=== PATIENT | male | born 1935 | race Caucasian/White ===

== ENCOUNTER 2019-05-28 08:00 | Outpatient (RCR) | payer MEDICARE, OTHER, SELFPAY ==
--- NOTE | 2019-04-28 13:12 | STOPEVAL ---
SPEECH THERAPY PROGRESS NOTE: Thank you for referring this patient to [facility]. Continued Speech Therapy is recommended x2 week 4 to improve vocal intensity and breath support. Please review, sign, date and return this plan of care TADEO. I agree with and certify that the following plan of care is medically necessary. Referring Physician Date Attending Provider: PHYSICIAN NOT ON STAFF Referring Provider: *ST Outpatient Evaluation Start: 04/22/19 09:04 Freq: Status: Active Protocol: Document 04/28/19 13:01 ROMERO (Rec: 04/28/19 13:12 ROMERO [email or web address]) Therapy Assessment Status Assessment Status Assessment Status Re-evaluation Outpatient Past Medical History Neurological History Hx Parkinson's Disease Yes: x 3-4 years Pain Assessment Timing of Pain Assessment Timing of Pain Assessment Assessment Self Report Self Report Pain Level 0 Pain Scale Pain Scale Used Numeric (1 - 10) Pain Score Pain Score 0: Self Report Voice Evaluation Intelligibility Intelligibility Comments overall speech intelligibility is within functional limits; however, pt speaks with a montone pitch & low vocal intensity which can interfere with being understood. Respiration Respiratory Support Comments Breath support is increased from initial evaluation when he was only able to prolong an /ah/ vowel with phonation time of 13.66 seconds. At this time, he is consistently able to prolong same vowel for > 15 seconds. Overall ave: 16.5 s. Loudness Sustained ah in dB's 88.43 Conversational Loudness (dB) 66 Loudness Average db in reading his developed functional sentences : 75.3 ST Clinical Summary Clinical Summary Clinical Summary Overall, pt is progressing in the achievement of goals. Further ST is recommended in order to achieve and facilitate consistency in functional situations. ST Services Indicated Yes Rehabilitation Potential Good Persons Assisting in Goal Achievement pt Patient/Caregiver Informed of Benefits/ Yes Risks of Rehabilitation Patient/Caregiver Participated in Plan Yes of Care Patient/Caregiver Agreed with Problem Yes List/
--- NOTE | 2019-05-04 15:21 | PCSTNOTE ---
Pt had eye surgery on this date and has been instructed to cancel tomorrow's ST tx.
--- NOTE | 2019-05-24 12:44 | PCSTNOTE ---
Patient called & cancelled scheduled appointment this date due to inclement weather.[ ]
--- NOTE | 2019-05-24 12:46 | PCSTNOTE ---
Patient called & cancelled scheduled appointment this date due to inclement weather.
--- NOTE | 2019-05-28 09:43 | STOPEVAL ---
Addendum entered by KRISTAL Harvey 06/01/19 08:07: DISCHARGE SUMMARY: Original Note: SPEECH THERAPY DISCHARGE: Thank you for referring this patient to [facility]. Please review, sign, date and return this discharge summary. I agree with and certify that the following plan of care is medically necessary. Referring Physician Date Admitting Provider: Attending Provider: PHYSICIAN NOT ON STAFF *ST Outpatient RE Evaluation : Start: 04/22/19 09:04 Freq: Status: Active Protocol: Document 05/28/19 08:06 ROMERO (Rec: 05/28/19 09:39 ROMERO [email or web address]) Therapy Assessment Status Assessment Status Assessment Status Re-evaluation Outpatient Past Medical History Neurological History Hx Parkinson's Disease Yes: x 3-4 years Pain Assessment Timing of Pain Assessment Timing of Pain Assessment Assessment Self Report Self Report Pain Level 0 Pain Scale Pain Scale Used Numeric (1 - 10) Pain Score Pain Score 0: Self Report Dysarthria Evaluation Oral-Motor Assessment Tip Diodochokinesis Accuracy Imprecise,Rhythm Regular,Rate Slow Back Diodochokinesis Accuracy Imprecise,Rhythm Regular,Rate Slow Alternating Tip/Back Diodochokinesis Accuracy Imprecise,Rhythm Regular,Rate Slow Intelligibility Polysyllabic Word Production 93 Intelligibility (%) Phrase Production Intelligibility (%) 80 Sentence Level Speech Intelligibility (% 70 ) Consistent Articulation Errors discussed & practiced comp strategies Voice Evaluation Intelligibility Conversational Level Speech (% 100 Intelligibility) Intelligibility Comments overall speech intelligibility is within functional limits; pt continues to speak with a montone pitch & low to average vocal intensity which can interfere with being understood. Respiration Vowel Prolongation (seconds) 21 Respiratory Support Comments Breath support is increased from initial evaluation when he was only able to prolong an /ah/ vowel with phonation time of 13.66 seconds. At this time, he is consistently able to prolong same vowel for > 21 seconds. Loudness Sustained ah in dB's 80 Conversational Loudness (dB) 66.56 Ability to Alter Loudness in Various No: discussed @ length the Levels of
== END 2019-07-02 14:53 | disposition home or self-care (01) ==
LOC: ANHST 08:00
DX: R49.8 Other voice and resonance disorders (principal); R47.89 Other speech disturbances
CPT/HCPCS: 92507; 92526

== ENCOUNTER 2019-11-07 13:26 | Inpatient (IN) | payer MEDICARE, OTHER, SELFPAY ==
[2019-11-07] VITALS (25 sets, daily range): BP systolic 127–165; BP diastolic 78–90; PULSE 70; RESP 12–23; TEMP 36.1–36.8; O2SAT 97–100; BMI 21.3
--- NOTE | ~2019-11-07 | CT_ITS ---
EXAMINATION: CT cervical spine wo con DATE: 11/07/2019 14:15 INDICATION: Neck pain after fall. TECHNIQUE: Computed tomography (CT) of the cervical spine was performed without intravenous contrast. The dose-length product was 116 mGy-cm. Automated exposure control and iterative reconstruction tech nique were employed. COMPARISON: None FINDINGS: There is disc narrowing at C3-4, C5-6 and C6-7 with endplate degenerative changes at these levels. There is mild multilevel uncinate and facet hypertrophy, right greater than left. There is mi ld levocurvature of the cervical spine. Odontoid process is unremarkable. No evidence for perched fac et. Lung apices are normal. There is carotid atherosclerosis. IMPRESSION: 1. No acute abnormality of the cervical spine. 2: Moderate-severe cervical spondylosis. Reviewed, dictated and finalized at location A.
--- NOTE | ~2019-11-07 | XR_ITS ---
XR chest 1V portable 11/07/2019 13:55 Indication: Dyspnea. Weakness. Procedure: AP portable chest Comparison: No prior studies for comparison. Findings: Heart size upper normal. Pacemaker leads in expected position. No focal air space disease, pulmonary edema, pleural effusion or suspected pneumothorax. Impression: 1: No acute cardiopulmonary disease. Reviewed, dictated and finalized at location A. Impression: 1: No acute cardiopulmonary disease.
--- NOTE | ~2019-11-07 | CT_ITS ---
EXAMINATION: CT brain wo con DATE: 11/07/2019 14:15 INDICATION: Status post fall. Headache. TECHNIQUE: Computed tomography (CT) of the head was performed without intravenous contrast. The dose- length product was 605.33 mGy-cm. The mA was adjusted according to patient size. Iterative reconstruc tion technique was employed. COMPARISON: None FINDINGS: No acute intracranial hemorrhage, infarction, mass or mass effect. No ventriculomegaly or m idline shift. Basilar cisterns are patent. There is intracranial atherosclerosis. There are scattered mild periventricular and subcortical white matter changes, most likely related to small vessel ische cornelius disease (microangiopathy). Paranasal sinuses and mastoids are pneumatized. No depressed skull fra ctures. IMPRESSION: 1. No acute intracranial abnormality. 2: Chronic age-related findings. Reviewed, dictated and finalized at location A.
--- NOTE | 2019-11-07 13:32 | ED.FALL ---
HPI - Fall General Chief Complaint: Fall Stated Complaint: fall Time Seen by Provider: 11/07/19 13:32 Source: patient, family and EMS Mode of arrival: EMS Limitations: dementia History of Present Illness HPI Narrative: Patient is an 84-year-old male with a history of Parkinson's dementia who presents for evaluation of ground-level fall. Patient reportedly was walking with the use of a walker when his legs became weak and he fell to the ground. No loss of consciousness. Patient spouse states he has had 4 falls today alone. She states he lives in an apartment and she has unable to care for him given the frequent falls, she is unable to lift him often when he falls. She reports he has had increasing weakness over the past week. Otherwise, patient has been at baseline mentation. No fever, nausea, vomiting. Patient reports mild neck pain, denies shoulder, chest pain, shortness of breath. Denies vision changes. Patient is currently taking Xarelto daily. No recent medication changes. Related Data Home Medications Medication Instructions Recorded Confirmed acetaminophen PO PRN PRN 11/07/19 carbidopa-levodopa 25 - 100 tablet PO TID 11/07/19 11/07/19 cholecalciferol (vitamin D3) 50 mcg PO DAILY 11/07/19 11/07/19 cyclosporine [Restasis] 11/07/19 dorzolamide 11/07/19 ferrous sulfate 325 mg PO DAILY 11/07/19 11/07/19 gabapentin 300 mg PO BID 11/07/19 11/07/19 latanoprost 11/07/19 omeprazole 40 mg PO DAILY 11/07/19 11/07/19 rivaroxaban [Xarelto] 20 mg PO DAILY 11/07/19 11/07/19 valacyclovir 1,000 mg PO BID 11/07/19 11/07/19 Allergies Allergy/AdvReac Type Severity Reaction Status Date / Time clindamycin Allergy Rash Verified 11/07/19 13:29 Review of Systems Review of Systems: Narrative: CONSTITUTIONAL: Denies fever CARDIOVASCULAR: Denies chest pain RESPIRATORY: Denies cough or dyspnea. GASTROINTESTINAL: Denies abdominal pain SKIN: Denies rash MUSCULOSKELETAL: Denies back pain NEUROLOGIC: Reports headache PMFSH Past Medical History Medical History (Updated 11/07/19 @ 14:54 by Lindsay Bynum MD) Hypertension Pacemaker Parkinsons Surgical History Surgical History (Updated 11/07/19 @ 13:42 by Lindsay Bynum MD) H/O cardiac radiofrequency ablation Total knee replacement status Social History Social History Gender identity (if verbalized by the patient): Male Exam Narrative: Exam Narrative: GENERAL: Awake, alert, conversant, slowed speech HEAD: Normocephalic, atraumatic. EYES: PERRLA and EOMI. ENT: Nares clear, no rhinorrhea or epistaxis. Mucous membranes moist. NECK: Supple. Cervical collar in place. CHEST: No respiratory distress, breathing even and non labored, no chest wall tenderness, no crepitus or ecchymoses HEART: Regular rate, sinus rhythm ABDOMEN:Non distended, non tender Pelvis: Stable to anterior lateral compression EXTREMITIES: Decreased range of motion in all extremities, increased rigidity, no edema, no deformity, no injury SKIN: Warm, dry, no rash. Abrasion to right elbow NEURO:No focal deficits. Alert and oriented x3 Course Vital Signs Vital signs: Vital Signs Temperature 36.8 C 11/07/19 13:29 Pulse Rate 70 11/07/19 13:29 Respiratory Rate 17 11/07/19 13:29 Blood Pressure 128/78 11/07/19 13:29 Pulse Oximetry 97 11/07/19 13:29 Temperature 36.8 C 11/07/19 13:29 Pulse Rate 70 11/07/19 15:16 Respiratory Rate 18 11/07/19 15:16 Blood Pressure 136/88 11/07/19 15:16 Pulse Oximetry 98 11/07/19 15:16 MDM - Fall MDM Narrative Medical decision making narrative: Patient presenting for evaluation of frequent fall, fall today. At the time of assessment, ABCs are intact and vital signs are stable. Patient is in a cervical collar. He has pain in the back of his head, denies neck or back pain. Patient is quite rigid on exam. Laboratory results are notable for hypokalemia, mild anemia. Patient will need oral as well as IV replacement, and af
--- NOTE | 2019-11-07 13:38 | ECG_ITS ---
Measurements Intervals [place] Rate: 69 P: WI: 0 QRS: -77 QRSD: 192 T: 85 QT: 487 QTc: 525 Interpretive Statements ELECTRONIC VENTRICULAR PACEMAKER BASELINE ARTIFACT- I, V2 NO FURTHER INTERPRETATION IS POSSIBLE ATYPICAL ECG Electronically Signed On 11-08-2019 13:31:28 CDT by Levi Win D.O.
[2019-11-07] MEDS: SODIUM CHLORIDE 0.9% IV 500 ML 999 ML IV CONT (14:08)
[2019-11-07 14:09] LABS: Basophils Percent Auto 0.4 % (0.2-1.2); Eosinophils Percent Auto 0.2 % (0-4.4); Hemoglobin 9.9 g/dL (14.0-18.0); Immature Granulocyte Absolute 0.03 K/mm3 (0.00-0.031); Immature Granulocyte Percent A 0.5 % (0-0.5); Lymphocytes Absolute Auto 0.52 K/mm3 (0.9-3.2); Lymphocytes Percent Auto 9.2 % (18.3-44.2); Mean Corpuscular Hemoglobin 31.7 pg (26-34); Mean Corpuscular Volume 96.2 fl (80-100); Mean Platelet Volume 8.3 fl (7.4-10.4); Monocytes Absolute Auto 0.4 K/mm3 (0.1-0.6); Monocytes Percent Auto 6.2 % (2.6-8.5); Neutrophils Absolute Auto 4.8 K/mm3 (1.3-6.7); Neutrophils Percent Auto 83.5 % (45.5-73.1); Platelet Count Result 217 k/mm3 (150-375); Red Blood Count 3.12 M/mm3 (4.6-6.20); Red Cell Distribution Width 13.8 % (11.5-14.5); White Blood Count 5.7 K/mm3 (4.5-10.0)
[2019-11-07 14:19] LABS: INR 1.4; Partial Thromboplastin Time 30.2 SECONDS (22.3-36.8); Prothrombin Time 16.5 Seconds (11.1-14.7)
[2019-11-07 14:23] LABS: Blood Urea Nitrogen 31 mg/dL (9-20); Calcium 9.1 mg/dL (8.4-10.2); Carbon Dioxide 27 mmol/L (22-30); Chloride 99 mmol/L (98-107); Estimated CRCL calculation 62 ml/min; Estimated Glomerular Filt Rate > 60; Glucose 125 mg/dL (75-110); Potassium 2.6 mmol/L (3.4-5.0); Sodium 133 mmol/L (137-145)
[2019-11-07] MEDS: POTASSIUM CHLORIDE 20 MEQ PACKET (FOR LIQUID) 40 MEQ PO (14:42)
[2019-11-07 15:42] LABS: Add Urine Microscopic? YES; Appearance Urine Clear (Clear); Bilirubin Urine Negative (Negative); Blood Urine Negative (Negative); Color Urine Yellow (Yellow); Glucose Urine UA Negative (Negative); Ketones Urine Trace mg/dL (Negative); Leukocyte Esterase Ur Negative LEU/UL (Negative); Mucus Urine Rare /lpf; Nitrate Urine Negative (Negative); Protein Urine Negative (Negative); RBC Urine 0-2 /hpf (0-2); Specific Grav Ur 1.018 (1.001-1.035); Urobilinogen Urine Negative mg/dL (<2.0); WBC Urine 0-3 /hpf
--- NOTE | 2019-11-07 18:52 | PC.NURSE ---
This patient, Winston Stanley, was admitted to 3 Med Surg Room 307-01. Patient/family oriented to hospital policies and general routines including ID bracelet, bed and alarms, visiting hours, pain management, procedures, bathroom and other care routines, personal items, smoking policy, room service/diet, and visiting hours. Valuables list has been completed. Information on how to activate the Rapid Response Team has been discussed. Patient/Family are encouraged to report perceived risks to care and to ask questions if they do not understand what they are told or what they should do.
--- NOTE | 2019-11-07 21:00 | PM.IMHP ---
H&P: HPI History of Present Illness Chief complaint: Multiple falls this week. Narrative: Winston Stanley is a very pleasant 84-year-old male with Parkinson's, atrial fibrillation status post permanent pacemaker insertion, cardiac ablation x2 on long-term anticoagulation, and chronic anemia on iron supplementation who presented to the emergency department earlier this afternoon via EMS for evaluation after multiple falls this week. The patient lives with his in independent living at [facility], and he typically ambulates with the aid of a cane. He has not had a fall in 8 months up until about 2 weeks ago when he sustained a mechanical fall. Over the past 1 week, he has had a fall every day in which she states that he just loses his balance. He has been jose that he has not sustained any significant injuries and each time he and his have been able to get him up. He does note hitting his head couple of days ago in a fall and his neck has been a bit sore since that time. Mr. Stanley reports ?extreme insomnia? and he has been taking melatonin for a couple of weeks, and is wondering if that may be causing some of the issue. Last night it sounds as though he had restless sleep, and he got up several times as he was uncomfortable. This morning he was having difficulties getting out of bed due to weakness, and sustained another mechanical fall and thus EMS was summoned. He believes he has gotten progressively more weak since the shut down due to COVID, as he has been unable to participate in his exercise program that he did at least 2 times a week. He sees a Parkinson's specialist affiliated with [place], he reports having no medication change in the last 4 to 5 months. He has not noticed a change in tremors or rigidity. Review of Systems Review of Systems: Narrative: A complete 12 systems were reviewed. He denies recent cold and flu-like symptoms. No fever, chills, or sweats. He has some mild aching in the back of his neck from the fall a couple of days ago. He denies paresthesias and focal weakness. No headache, vertigo, or diplopia. He denies chest pain, palpitations, pleuritic pain, and feelings of irregular heartbeat however he was in atrial fibrillation on EMS arrival today. The patient tells me that his pacemaker was interrogated recently showing that he was in AFib perhaps 8% of the time. He continues to be on Xarelto and has not noticed any blood in his stool. Regarding his Parkinson's, he does experience occasional dysphagia, mainly with liquids. He has also had speech changes and hypophonia. Appetite has been as per usual. He denies nausea and vomiting. He frequently has constipation takes MiraLax daily, however he has not taken that for several days due to passing liquid stools several times a day for the past 3 days. He denies dysuria and hematuria. Except as documented, all other systems were reviewed and are negative. [facility] Past Medical History Medical History (Updated 11/07/19 @ 22:58 by Deedee Romero PA-C) Chronic anemia With history of blood transfusion. Essential hypertension Gastroesophageal reflux disease Glaucoma History of MRSA infection Hypertension Parkinsons Paroxysmal atrial fibrillation On Xarelto for stroke prophylaxis. Status post permanent pacemaker insertion. History of cardiac ablation x2. Surgical History Surgical History (Updated 11/07/19 @ 22:50 by Deedee Romero PA-C) History of cardiac radiofrequency ablation History of permanent cardiac pacemaker placement History of total bilateral knee replacement Family History Family History Mother Cerebrovascular accident Social History Social History (Updated 11/07/19 @ 22:51 by Deedee Romero PA-C) Social History: Mr. Stanley lives with his in independent living at [facility]. They have 2 children. He is originally from [place], [place] and is retired
[2019-11-07 22:13] LABS: Alanine Aminotransferase 10 U/L (4-50); Albumin Level 3.4 g/dL (3.5-5.1); Alkaline Phosphatase 72 U/L (38-126); Aspartate Amino Transferase 22 U/L (17-59); Bilirubin,Total 0.2 mg/dL (0.2-1.3); Blood Urea Nitrogen 25 mg/dL (9-20); Calcium 8.3 mg/dL (8.4-10.2); Carbon Dioxide 27 mmol/L (22-30); Chloride 100 mmol/L (98-107); Estimated CRCL calculation 59 ml/min; Estimated Glomerular Filt Rate > 60; Glucose 112 mg/dL (75-110); Potassium 2.8 mmol/L (3.4-5.0); Sodium 133 mmol/L (137-145)
[2019-11-07 22:58] LABS: Iron 30 ug/dL (49-181)
[2019-11-07 23:07] LABS: Percent Iron Saturation 13 % (20-50)
[2019-11-07] MEDS: POTASSIUM CHLORIDE 20 MEQ TABLET 40 MEQ PO (23:14)
[2019-11-07 23:30] LABS: Thyroid Stimulating Hormone Reflex 0.721 uIU/mL (0.465-4.68)
[2019-11-07 23:36] LABS: Folic Acid > 20.0 ng/mL (2.76->20)
[2019-11-08] VITALS (7 sets, daily range): BP systolic 115–150; BP diastolic 67–81; PULSE 70–72; RESP 16; TEMP 36.4–37.2; O2SAT 100
[2019-11-08 06:22] LABS: Hematocrit 28.8 % (42.0-52.0); Hemoglobin 9.6 g/dL (14.0-18.0); Mean Corpuscular HGB Conc 33.3 g/dl (32-36); Mean Corpuscular Hemoglobin 31.8 pg (26-34); Mean Corpuscular Volume 95.4 fl (80-100); Platelet Count Result 228 k/mm3 (150-375); Red Blood Count 3.02 M/mm3 (4.6-6.20); Red Cell Distribution Width 13.4 % (11.5-14.5)
[2019-11-08 06:36] LABS: Blood Urea Nitrogen 21 mg/dL (9-20); Calcium 8.1 mg/dL (8.4-10.2); Carbon Dioxide 26 mmol/L (22-30); Chloride 102 mmol/L (98-107); Estimated CRCL calculation 66 ml/min; Estimated Glomerular Filt Rate > 60; Glucose 94 mg/dL (75-110); Magnesium 1.9 mg/dL (1.6-2.3); Potassium 3.4 mmol/L (3.4-5.0); Sodium 133 mmol/L (137-145)
[2019-11-08] MEDS: VALACYCLOVIR HCL 500 MG TABLET 1000 MG PO ×2 (08:03→17:45)
[2019-11-08] MEDS: FERROUS SULFATE 324 MG TABLET PO (08:04)
[2019-11-08] MEDS: CARBIDOPA/LEVODOPA 25/100 MG TABLET 2 TABLET PO ×3 (08:04→17:45)
[2019-11-08] MEDS: CHOLECALCIFEROL 1,000 UNIT TABLET 2000 UNITS PO (08:04)
[2019-11-08] MEDS: GABAPENTIN 300 MG CAPSULE PO ×2 (08:05→17:45)
[2019-11-08] MEDS: PANTOPRAZOLE 40 MG TABLET PO (08:05)
[2019-11-08] MEDS: POTASSIUM CHLORIDE 20 MEQ TABLET 40 MEQ PO (08:05)
[2019-11-08] MEDS: DORZOLAMIDE HCL 2% OPHTH DROPS 1 DROP EACH EYE ×3 (08:08→17:47)
--- NOTE | 2019-11-08 10:13 | PC.NURSE ---
Notified Dr. Martinez that patients COVID test came back negative. No new orders were obtained
--- NOTE | 2019-11-08 16:01 | PCSTNOTE ---
Please refer to the Bedside Swallow Evaluation in the EMR.
--- NOTE | 2019-11-08 17:12 | PM.IMPN ---
Progress Note: A&P Assessment and Plan (1) Frequent falls: Code(s): R29.6 - Repeated falls Status: Acute Assessment and Plan: -----likely due to his progressing Parkinson's. Would benefit from TRC therapy. He did okay with speech therapy today. Etiology of the fall appears to be mechanical with abnormal gait. He is at high risk for multiple falls in the future (2) Acute hypokalemia: Code(s): E87.6 - Hypokalemia Status: Acute Assessment and Plan: -----resolved. (3) Chronic anemia: Code(s): D64.9 - Anemia, unspecified Status: Acute Assessment and Plan: -----stable. Anemia studies show anemia chronic disease. Monitor (4) Parkinsons: Code(s): G20 - Parkinson's disease Status: Acute Assessment and Plan: -----he sees Dr. Winston Mattson at [facility]. He last saw him 5 months ago and is scheduled to see him later this month. He has typical presentation of Parkinson's but no rigidity noted on exam. His gait is abnormal and would highly benefit from TRC therapy. I will consult Neurology for any additional recommendations. He did okay with the speech therapy. (5) Paroxysmal atrial fibrillation: Code(s): I48.0 - Paroxysmal atrial fibrillation Status: Acute Assessment and Plan: -----he was reportedly in atrial fibrillation on arrival but has been in sinus rhythm. Telemetry shows a paced rhythm. Which continue to hold Xarelto due to multiple falls (6) Essential hypertension: Code(s): I10 - Essential (primary) hypertension Status: Acute Assessment and Plan: -----last blood pressure 150/80. Blood pressure medications. Will monitor trends and adjust treatment accordingly Time Spent With Patient Time with patient: 25 - 35 minutes Subjective Date/time seen: 11/08/19 17:12 Interval history: Pt is a 84 y/o male with parkinsons. Pt was seen today and is discouraged on his decline in the last few months. He said he wasn't falling as much until the last few weeks. He sees Dr. Haresh Rueda at [facility] and plan see him later this month. He has no complaints today. Pt denies nausea, vomiting, fevers, chills, constipation, diarrhea, chest pain, sob, or abdominal pain. His last bowel movement was yesterday but that was after 10 days of constipation. He said he has IBS any alternates between constipation and diarrhea. Review of Systems Review of Systems: All systems reviewed & are unremarkable except as noted in HPI and below Exam Narrative: Exam Narrative: General: Well developed well nourished patient resting in the chair in NAD HEENT: normocephalic Neck: supple Neuro: Alert and oriented x4. Slow speech and movement consistent with Parkinson's. No rigidity noted and no cogwheeling CV:RRR. Telemetry shows paced rhythm at 70 beats per minute Resp:CTA Abd: Soft, non distended. No pain to palpation. Positive bowel sounds Extremities: No swelling, erythema, or pain to palpation. Objective Data Vital Signs Vital Signs: Vital Signs - 24 hr 11/07/19 17:59 11/07/19 18:00 11/07/19 23:10 Temperature 97.0 F L 97.8 F Pulse Rate 70 70 70 Respiratory Rate 17 16 16 Blood Pressure 165/86 H 154/83 H Pulse Oximetry 99 100 100 11/08/19 06:00 11/08/19 10:10 11/08/19 12:00 Temperature 97.6 F Pulse Rate 70 72 70 Respiratory Rate 16 Blood Pressure 150/80 H Pulse Oximetry 100 11/08/19 16:14 Temperature Pulse Rate 70 Respiratory Rate Blood Pressure Pulse Oximetry Intake/Output Intake/Output: Intake & Output 11/05/19 11/06/19 11/07/19 11/08/19 23:59 23:59 23:59 23:59 Intake Total 1000 700 Output Total 550 Balance 1000 150 Meds/Results Medications: Active Medications Generic Name Dose Route Start Last Admin Trade Name Freq PRN Reason Stop Dose Admin Acetaminophen 650 mg 11/07/19 15:00 Tylenol Tablet PO Q4H PRN Mild Pain (1-3) o
[2019-11-08] MEDS: LATANOPROST 0.005% OP SOLN 2.5 ML BTL 1 DROP EACH EYE (20:36)
[2019-11-09] VITALS: PULSE 72
[2019-11-09 04:00] VITALS: PULSE 70
[2019-11-09 06:00] VITALS: BP 152/86; PULSE 70; RESP 16; TEMP 36.8; O2SAT 100
[2019-11-09 06:06] LABS: Hematocrit 29.6 % (42.0-52.0); Hemoglobin 9.9 g/dL (14.0-18.0)
[2019-11-09 06:18] LABS: Blood Urea Nitrogen 18 mg/dL (9-20); Calcium 8.1 mg/dL (8.4-10.2); Carbon Dioxide 27 mmol/L (22-30); Chloride 101 mmol/L (98-107); Estimated CRCL calculation 66 ml/min; Estimated Glomerular Filt Rate > 60; Glucose 97 mg/dL (75-110); Phosphorus 2.5 mg/dL (2.5-4.5); Potassium 3.4 mmol/L (3.4-5.0); Sodium 134 mmol/L (137-145)
[2019-11-09 08:00] VITALS: PULSE 70
[2019-11-09] MEDS: FERROUS SULFATE 324 MG TABLET PO (10:14)
[2019-11-09] MEDS: GABAPENTIN 300 MG CAPSULE PO ×2 (10:14→16:54)
[2019-11-09] MEDS: PANTOPRAZOLE 40 MG TABLET PO (10:15)
[2019-11-09] MEDS: CARBIDOPA/LEVODOPA 25/100 MG TABLET 2 TABLET PO ×3 (10:15→16:53)
[2019-11-09] MEDS: CHOLECALCIFEROL 1,000 UNIT TABLET 2000 UNITS PO (10:15)
[2019-11-09] MEDS: DORZOLAMIDE HCL 2% OPHTH DROPS 1 DROP EACH EYE ×3 (10:16→16:53)
[2019-11-09] MEDS: VALACYCLOVIR HCL 500 MG TABLET 1000 MG PO (10:17)
[2019-11-09] MEDS: POTASSIUM CHLORIDE 20 MEQ TABLET 40 MEQ PO (10:19)
--- NOTE | 2019-11-09 11:43 | PM.IMPN ---
Subjective Date/time seen: 11/09/19 11:30 Objective Data Vital Signs Vital Signs: Vital Signs - 24 hr 11/08/19 12:00 11/08/19 14:00 11/08/19 16:14 Temperature 97.7 F Pulse Rate 70 70 70 Respiratory Rate 16 Blood Pressure 115/67 Pulse Oximetry 100 11/08/19 20:00 11/08/19 22:25 11/09/19 00:00 Temperature 99.0 F Pulse Rate 70 71 72 Respiratory Rate 16 Blood Pressure 140/81 Pulse Oximetry 100 11/09/19 04:00 11/09/19 06:00 Temperature 98.2 F Pulse Rate 70 70 Respiratory Rate 16 Blood Pressure 152/86 H Pulse Oximetry 100 Intake/Output Intake/Output: Intake & Output 11/06/19 11/07/19 11/08/19 11/09/19 23:59 23:59 23:59 23:59 Intake Total 1000 1850 450 Output Total 1250 975 Balance 1000 600 -525 Meds/Results Medications: Active Medications Generic Name Dose Route Start Last Admin Trade Name Freq PRN Reason Stop Dose Admin Acetaminophen 650 mg 11/07/19 15:00 Tylenol Tablet PO Q4H PRN Mild Pain (1-3) or Fever Acetaminophen 325 mg 11/07/19 22:32 Tylenol Tablet PO PRN PRN Pain (Scale Score 4-6) Carbidopa/Levodopa 2 tablet 11/08/19 08:00 11/09/19 10:15 Sinemet 25/100 Mg PO 2 tablet TIDWM PATRIZIA Administration Cyclosporine 1 drop 11/08/19 09:00 11/09/19 10:16 Restasis EACH EYE 1 drop BID PATRIZIA Administration Dorzolamide HCl 1 drop 11/08/19 09:00 11/09/19 10:16 Trusopt EACH EYE 1 drop TID PATRIZIA Administration Ferrous Sulfate 324 mg 11/08/19 08:00 11/09/19 10:14 Ferrous Sulfate PO 324 mg DAILY@0800 PATRIZIA Administration Gabapentin 300 mg 11/08/19 09:00 11/09/19 10:14 Neurontin PO 300 mg BID PATRIZIA Administration Latanoprost 1 drop 11/08/19 21:00 11/08/19 20:36 Xalatan EACH EYE 1 drop HS PATRIZIA Administration Ondansetron HCl 4 mg 11/07/19 15:00 Zofran Inj IV PUSH Q4H PRN Nausea Pantoprazole Sodium 40 mg 11/08/19 09:00 11/09/19 10:15 Protonix PO 40 mg QAM PATRIZIA Administration Valacyclovir HCl 1,000 mg 11/08/19 09:00 11/09/19 10:17 Valtrex PO 1,000 mg BID PATRIZIA Administration Vitamin D 2,000 unit 11/08/19 09:00 11/09/19 10:15 Vitamin D PO 2,000 unit DAILY PATRIZIA Administration Radiology Results: ITS Impressions Chest X-Ray 11/07/19 13:58 Impression: 1: No acute cardiopulmonary disease. Head CT 11/07/19 14:16 IMPRESSION: 1. No acute intracranial abnormality. 2: Chronic age-related findings. Cervical Spine CT 11/07/19 14:18 IMPRESSION: 1. No acute abnormality of the cervical spine. 2: Moderate-severe cervical spondylosis. Labs Labs: Laboratory Results - last 24 hr 11/09/19 11/09/19 05:34 05:34 Hgb 9.9 L Hct 29.6 L Sodium 134 L Potassium 3.4 Chloride 101 Carbon Dioxide 27 BUN 18 Creatinine 0.80 Estim Creat Clear Calc 66 Estimated GFR > 60 Glucose 97 Calcium 8.1 L Phosphorus 2.5 Quality VTE Prophylaxis VTE prophylaxis: mechanical ordered
[2019-11-09 12:00] VITALS: PULSE 70
[2019-11-09 14:00] VITALS: BP 108/60; PULSE 69; RESP 16; TEMP 36.4; O2SAT 98
--- NOTE | 2019-11-09 14:19 | PM.DS ---
DS: Admitting Diagnosis Admitting Diagnosis Admitting Diagnosis: Repeated falls DS: Discharge Diagnosis Discharge Diagnosis (1) Frequent falls: Code(s): R29.6 - Repeated falls Status: Acute Assessment and Plan: Date of Service 11/09/19 Mr. Stanley is a pleasant 84yo M with Parkinson's disease, atrial fibrillation s/p pacemaker insertion and cardiac ablation x 2 on long-term anticoagulation, and chronic anemia who presented to the ED for evaluation of multiple falls this week. He resides with his in [facility] independent living. He noted he typically ambulates with a cane and over the last 8 months or so had not had any falls. He noted his first fall in months was 2 weeks ago and had fallen every day since then, noting he just loses his balance. No loss of consciousness. He has not noticed any changes in tremors or rigidity. He has not been able to participate in his normal exercise/gym activities due to COVID shut downs and he feels that has contributed to making him weaker lately. He follows with a Parkinson's movement disorder specialist affiliated with [facility], Dr Haresh Mattson. CT brain showed no acute intracranial abnormalities. Ultimately it is felt that his falls are a result of progressing Parkinson's. His home Xarelto is on hold due to bleeding risk with multiple falls and can be reevaluated by PCP after discharge. He was felt to be a good candidate for continued PT/OT in the Rehab Center here at [facility]. He was hemodynamically stable for discharge to [facility] 11/09/19. Arthur to be due to his progressing Parkinson's. Etiology of the fall appears to be mechanical with abnormal gait. He is at high risk for multiple falls in the future. Discharge to [facility]. Anticoagulation held due to many falls. (2) Acute hypokalemia: Code(s): E87.6 - Hypokalemia Status: Acute Assessment and Plan: Potassium as low as 2.6 on arrival and replaced. Stable at 3.5 day of discharge and can be monitored in [facility]. (3) Chronic anemia: Code(s): D64.9 - Anemia, unspecified Status: Acute Assessment and Plan: Chronic. H&H low but stable. No evidence of acute bleeding. (4) Parkinsons: Code(s): G20 - Parkinson's disease Status: Acute Assessment and Plan: He sees Dr. Haresh Mattson with the [facility] at [address]. He last saw him 5 months ago and is scheduled to see him later this month. No recent changes in medications. Maintained on his home Sinemet. (5) Paroxysmal atrial fibrillation: Code(s): I48.0 - Paroxysmal atrial fibrillation Status: Acute Assessment and Plan: Telemetry shows a paced rhythm. Will continue to hold Xarelto due to multiple falls (6) Essential hypertension: Code(s): I10 - Essential (primary) hypertension Status: Acute Assessment and Plan: Last 108/. DS: Summary Time Spent with Patient Time attestation: Total time spent providing and/or coordinating discharge services: 35 minutes Exam Narrative: Exam Narrative: General: Male resting supine in bed in no acute distress. HEENT: Normocephalic, EOMI, oral mucosa moist. Cardiovascular: Rate and rhythm are regular. Respiratory: Lungs clear to auscultation all bustamante. Non-labored breathing. Abdomen: Soft, non-tender, non-distended, bowel sounds present. Extremities: Peripheral pulses intact. No edema. Neuro: Alert and oriented. Speech is slow. DS: Data Data Completed and Pending Labs on day of discharge: Labs from last 24 hours 11/09/19 11/09/19 05:34 05:34 Hgb 9.9 L Hct 29.6 L Sodium 134 L Potassium 3.4 Chloride 101 Carbon Dioxide 27 BUN 18 Creatinine 0.80 Estim Creat Clear Calc 66 Estimated GFR > 60 Glucose 97 Calcium 8.1 L Phosph
--- NOTE | 2019-11-09 15:40 | CONS_ITS ---
DATE OF CONSULTATION: 11/08/[address] Rachele Martinez. HISTORY OF PRESENT ILLNESS: An 84-year-old has been admitted to the hospital for the complaints of multiple falls with the ongoing diagnosis of: 1. Parkinson's disease. 2. Atrial fibrillation. 3. Status post pacemaker insertion. 4. History of cardiac ablation x2 with long-term anticoagulation. 5. Anemia with iron supplementation. The patient lives with his in independent living at [place]. Typically ambulates with the aid of a cane. Has not had a fall in 8 months, up until about 2 weeks ago when he sustained a mechanical fall and had been falling almost everyday without any significant injuries up until now, though he complained of soreness in the neck. He has been taking melatonin for extreme insomnia. He does not have any history of exposure to COVID. He does have a history of Parkinson's disease for which he follows with [facility]. He does have a pacemaker, which was interrogated recently. He was in atrial fibrillation 8% of the time and he is being maintained on the Xarelto. He does have occasional dysphagia because of the underlying Parkinson's disease and he is constipated for which he takes the MiraLAX, but he has no bladder dysfunction. In the past, he has undergone bilateral total knee replacement, permanent pacemaker insertion, cardiac ablation x2, and Xarelto for the stroke prophylaxis. MEDICATIONS: He was taking multiple medication, particularly included: 1. Carbidopa-levodopa 25/100 1 tab 3 times a day. 2. Cholecalciferol 50 mcg daily. 3. Dorzolamide 1 drop ophthalmic t.i.d. 4. Ferrous sulfate 325 mg daily. 5. Gabapentin 300 b.i.d. 6. Latanoprost 1 drop each eye at bedtime. 7. Omeprazole 40 mg daily. 8. Rivaroxaban (Xarelto) 10 mg daily. 9. Valacyclovir 1000 mg p.o. b.i.d. ALLERGIES: HE IS ALLERGIC TO CLINDAMYCIN. PHYSICAL EXAMINATION: GENERAL: Up until now, he has been documented to be awake, alert, afebrile. On examination, he is well-developed, awake, alert, oriented in being in the hospital. HEENT: Head normocephalic with no cranial bruit. Ear, nose, throat examination normal. NECK: Supple with no cervical bruit. No thyromegaly. No lymphadenopathy. HEART: Regular. LUNGS: Clear to auscultation. ABDOMEN: Soft with no organomegaly. NEUROLOGICAL: He is awake, alert, follows the instruction. Speech is rather slow. Occasional slurring. Pupils round, regular. Cazares of vision full. Extraocular movements full. Face symmetrical. Tongue midline. Motor examination revealed him to have decreased strength 4 to 5/5 with no abnormal spasticity. LABORATORY DATA: CBC up until now revealed WBC 5.7, hemoglobin 9.8, and platelet count is normal. Basic metabolic panel initially were with low potassium 2.6, repeat 2.8 and his hepatic enzymes are normal though the serum albumin was only 3.5. UA is negative. Chest x-ray negative, head CT scan negative and cervical spine CT scan negative as well. IMPRESSION: Increasing weakness and frequent falls with the history of underlying Parkinsonian disease. The patient will benefit from the physical therapy and if necessary, I will increase the carbidopa-levodopa slightly to make him little bit more comfortable and more agile. ONUR GARCIA M.D. JAVA SCALA DEVELOPER JAVA SCALA DEVELOPER D I MT: Nancy
== END 2019-11-09 16:55 | DRG 57 ==
LOC: ANHED 14:37 → ANH3MEDSUR 16:55
PROVIDERS: Physician Assistant; Admitting Provider Family Medicine; Emergency Provider Emergency Medicine; PCP Family Medicine; Visit Provider Physician Assistant
DX: G20 Parkinson's disease (principal); F02.80 Dementia in other diseases classified elsewhere, unspecified severity, without behavioral disturbance, psychotic disturbance, mood disturbance, and anxiety; D64.9 Anemia, unspecified; W18.30XA Fall on same level, unspecified, initial encounter; R29.6 Repeated falls; Z91.81 History of falling; E87.6 Hypokalemia; I48.0 Paroxysmal atrial fibrillation; I10 Essential (primary) hypertension; H40.9 Unspecified glaucoma; Z79.01 Long term (current) use of anticoagulants; Z79.899 Other long term (current) drug therapy; Z95.0 Presence of cardiac pacemaker
CPT/HCPCS: 36415; 70450; 71045; 72125; 80048; 80076; 81001; 82607; 82728; 82746; 83540; 83550; 83735; 84100; 84443; 85014; 85018; 85025; 85027; 85610; 85730; 92610; 93005; 96361; 96365; 96366; 97116; 97162; 97166; 97530; 97535; 99285; A9270; G0378; J3480; J7040

== ENCOUNTER 2019-11-09 17:04 | IRF | payer MEDICARE, OTHER, SELFPAY ==
[2019-11-09 17:00] VITALS: BP 151/81; PULSE 69; RESP 18; TEMP 36.6; O2SAT 100; BMI 21.0
--- NOTE | 2019-11-09 17:46 | PC.NURSE ---
This patient, Winston Stanley, was admitted to [facility] Room 219-02. Patient/family oriented to hospital policies and general routines including ID bracelet, bed and alarms, visiting hours, pain management, procedures, bathroom and other care routines, personal items, smoking policy, room service/diet, and visiting hours. Valuables list has been completed. Information on how to activate the Rapid Response Team has been discussed. Patient/Family are encouraged to report perceived risks to care and to ask questions if they do not understand what they are told or what they should do.
--- NOTE | 2019-11-09 18:04 | PC.NURSE ---
removed IV from left hand -not in use for anything. Pt tolerated well.
--- NOTE | 2019-11-09 20:01 | PC.NURSE ---
At about 1830 I heard Martha corley for help and went in immediately and pt seemed very angry and was standing up holding on to the wheelchair and acting aggressive with his behavior not wanting to sit down or calm down. I was able to talk him in calm voice and he did sit down. H esaid he did not want changed and that he wanted to leave. I called Laura at the desk so he could speak with her. He wanted to leve . She told him she could not come and get him. Security and Nursing Hem Marker were also called at the desk. Finally patient did settle down and sitter provided for safety. I called Dr. Larson and put in an order for seroquel 12.5mg po now dose. Adriana Espinoza called me and wanted briefed on situation.
[2019-11-09] MEDS: PANTOPRAZOLE 40 MG TABLET PO (20:52)
[2019-11-09] MEDS: LATANOPROST 0.005% OP SOLN 2.5 ML BTL 1 DROP EACH EYE (20:53)
[2019-11-09 22:00] VITALS: BP 126/76; PULSE 70; RESP 18; TEMP 36.7; O2SAT 100
[2019-11-10 04:37] LABS: Basophils Percent Auto 0.6 % (0.2-1.2); Eosinophils Absolute Auto 0.2 K/mm3 (0-0.3); Eosinophils Percent Auto 4.4 % (0-4.4); Hematocrit 28.9 % (42.0-52.0); Hemoglobin 9.5 g/dL (14.0-18.0); Immature Granulocyte Absolute 0.02 K/mm3 (0.00-0.031); Immature Granulocyte Percent A 0.4 % (0-0.5); Lymphocytes Absolute Auto 0.71 K/mm3 (0.9-3.2); Lymphocytes Percent Auto 14.8 % (18.3-44.2); Mean Corpuscular HGB Conc 32.9 g/dl (32-36); Mean Corpuscular Hemoglobin 31.8 pg (26-34); Mean Corpuscular Volume 96.7 fl (80-100); Monocytes Absolute Auto 0.4 K/mm3 (0.1-0.6); Monocytes Percent Auto 7.7 % (2.6-8.5); Neutrophils Absolute Auto 3.5 K/mm3 (1.3-6.7); Neutrophils Percent Auto 72.1 % (45.5-73.1); Platelet Count Result 208 k/mm3 (150-375); Red Blood Count 2.99 M/mm3 (4.6-6.20); Red Cell Distribution Width 13.9 % (11.5-14.5); White Blood Count 4.8 K/mm3 (4.5-10.0)
[2019-11-10 04:49] LABS: Blood Urea Nitrogen 19 mg/dL (9-20); Calcium 8.2 mg/dL (8.4-10.2); Carbon Dioxide 26 mmol/L (22-30); Chloride 102 mmol/L (98-107); Estimated CRCL calculation 74 ml/min; Estimated Glomerular Filt Rate > 60; Glucose 104 mg/dL (75-110); Potassium 3.5 mmol/L (3.4-5.0); Sodium 131 mmol/L (137-145)
[2019-11-10] MEDS: DORZOLAMIDE HCL 2% OPHTH DROPS 1 DROP EACH EYE ×3 (05:59→20:38)
[2019-11-10 06:00] VITALS: BP 180/90; PULSE 70; RESP 18; TEMP 36.6; O2SAT 100
--- NOTE | 2019-11-10 08:00 | WPDREHABHP ---
H&P: HPI History of Present Illness Chief complaint: parkinsonism Narrative: Winston Stanley is a 84 year old male HISTORY OF PRESENT ILLNESS: The patient's primary rehab impairment category is Acute symptoms of Parkinson's disease superimposed on the previous diagnosis of Parkinson's disease with multiple falls The etiologic diagnosis is acute Parkinson's disease I saw this patient [id number] on November 10, 2019 at 8:00 a.m. The patient is a 84-year-old right-handed white male with a past medical history of Parkinson's disease, atrial fibrillation, pacemaker, cardiac ablation, and chronic anemia who presented to [facility] Emergency Room on November 07, 2019 via EMS after suffering multiple falls during the week. The patient lives with his in [facility] and typically ambulates with a cane and sometimes uses walker. He had fallen in 8 months prior until approximately 2 weeks ago. Over the past 1 week the patient has fallen every day. He did hit his head a couple of days ago after a fall and his neck has been sore since. The patient reported extreme insomnia for which he was started taking melatonin and wondered if they may have caused his imbalance. Lab workup revealed acute hypokalemia, anemia, hypocalcemia, and hyponatremia. His labs were being monitored and electrolytes repleted as necessary. These frequent falls and hospitalization are being contributed to progression of the patient's Parkinson's disease, his medications are being monitored and will be adjusted as necessary to increase fluidity of muscle movements and overall safety with mobility. He is at risk for multiple falls in the future on will require physical therapy to correct his abnormal gait and occupational therapy to assist with regaining independence with ADLs. Chemical DVT prophylaxis will not be considered due to the patient's increased number of falls. Sequential compression devices will be used The patient has not traveled outside the [place] or had contact with someone who is ill that has traveled outside the [place] in the past 21 days. The patient has not traveled to an area of the [place] that is experiencing a known transmission of the Coronavirus and has not had close personal contact with any well that has. The patient does not have a fever. The patient is not experiencing lower respiratory illness symptoms. Patient does not require supplemental oxygen and saturations are 100% on room air Therapy was initiated at the acute care facility and the patient transferred to us from [facility] on November 10, 2019 FALLS OR SURGERIES: The patient has had no major surgeries in the 100 days prior to admission. They had falls in the past year. They had multiple falls with injury in the past year. PAST MEDICAL HISTORY: chronic anemia with a history of blood transfusion, essential hypertension, gastroesophageal reflux disease, glaucoma, hypertension, Parkinson's disease paroxysmal atrial fibrillation, nocturia, frequent falls pacemaker implantation cardiac ablation for chronic atrial fibrillation PAST SURGICAL HISTORY: pacemaker insertion, cardiac ablation x2, bilateral total knee replacements. SOCIAL HISTORY: The patient lives at [facility] with his . He was independent with ADLs and mobility with a 4 wheeled walker. The patient states there is a carb to get up to go into apartment building. He is [employer]. He went to Parkinson's group and was in [employer] exercises class twice a week and has tried hard to stay as active as is possible. Patient is very motivated to perform therapy on T [facility]. He is a previous smoker but however quit in 1960 very rare use of alcohol no illicit do's of drugs. He attributes his progression of the Parkinson's disease because of the fact of Coronavirus around and he was locked down in his independent living apartment and was unable to be engage
[2019-11-10 08:50] VITALS: PULSE 68; RESP 18; O2SAT 100
[2019-11-10] MEDS: CARBIDOPA/LEVODOPA 25/100 MG TABLET 2 TABLET PO ×3 (09:04→17:25)
[2019-11-10] MEDS: GABAPENTIN 300 MG CAPSULE PO ×2 (09:05→17:25)
[2019-11-10] MEDS: CHOLECALCIFEROL 1,000 UNIT TABLET 2000 UNITS PO (09:05)
[2019-11-10] MEDS: FERROUS SULFATE 324 MG TABLET PO (09:05)
[2019-11-10] MEDS: PANTOPRAZOLE 40 MG TABLET PO ×2 (09:05→20:37)
[2019-11-10 13:36] VITALS: BMI 21.0
[2019-11-10 14:27] VITALS: BP 70/42; PULSE 70; RESP 18; TEMP 36.8; O2SAT 96
--- NOTE | 2019-11-10 16:28 | RPD ---
INDIVIDUALIZED PLAN OF CARE FOR Winston Stanley Brief Synthesis of Pre-Admission Screen, Post-Admission Evaluation and Therapy Evaluations: The patient presents to rehab with Acute Parkinson's disease. Comorbidities include nocturia, paroxysmal atrial fibrillation, chronic anemia, hypertension, acute hypokalemia, frequent falls, and GERD. The patient?s needs will be best met in an intensive program vs. at a lower level of care. The patient requires physician services for neurology services, monitoring and treatment of atrial fibrillation, Parkinson's disease, monitoring for adverse reactions to new medications, monitoring for infection, pain control, medical oversight, and coordination of care. The patient requires nursing services for frequent neuro checks, medication management and education, pressure relief and skin care management, monitoring of labs, and fall/safety precautions. Deficits include:ADLs, Balance, Endurance, Family Training/Education, Mobility, Pain Management, ROM, Safety, Strength, Swallowing, and Transfers Hog Sticker/Case Management for: Discharge Planning and Patient/Family Counseling Physical Therapy: 5 days per week for 75 minutes. Treatments may include: Therapeutic Exercise, Gait Training, Neuromuscular Re-education, Transfer Training, Community Reintegration, Bed Mobility, Patient/Family Education, Wheelchair Mobility Group Therapy/Concurrent Therapy Rationales: -Improve attention span during functional activities in a distracted environment. -Enhance problem solving and/or adequate judgment skills during functional activities in a distracted environment. -Promote increased safety awareness in a distracted environment to reduce fall risk with functional tasks, transfers, and ambulation to allow a more safe, self-sufficient return to the home environment. -Improve dynamic balance skills to promote safety and independence with functional activities in a distracted environment for maximum gain. Occupational Therapy: 5 days per week for 75 minutes. Treatments may include: Therapeutic Exercise, Therapeutic Activity, Cognitive Training, Self-Care Transfer Training, Community Reintegration, Home Management, Patient/Family Education, Wheelchair Mobility Training, Energy Conservation Training Group Therapy/Concurrent Therapy Rationales: -Allow therapist to observe and teach generalization and carry-over of skills learned in individual therapy. -Enhance problem solving and sequencing skills during therapeutic activities in a distracted environment. -Promote increased safety awareness in a realistic setting to reduce fall risk with functional tasks due to visual and verbal distractions. -Increase functional level with ADLs, ADL transfers and use of adaptive equipment through therapeutic activities with others while promoting safety to allow a more safe, self-sufficient return home. Speech Therapy: 5 days per week for 30 minutes. Treatments may include: Dysphasia Therapy, Speech/Language/Communication Therapy, Cognitive Training, Patient/Family Education Group Therapy/Concurrent Therapy - Rationale: -Allow therapist to observe and teach generalization and carry-over of skills learned in individual therapy. -Improve comprehension skills with complex or abstract ideas through discussion in a realistic setting. -Enhance problem solving skills with complex issues during activities in a distracted environment. -Promote increased memory skills and concentration in a distracted environment for a safe transition home. -Improve attention and focus with language/communication skills in a realistic and supportive therapeutic setting. -Allow for practice of expression of basic needs and ideas through functional activities with others. Medical Prognosis: Good Anticipated Length of Stay: 10 days Rehab Goals: Eating Goal: 06-Independent Oral Hygiene Goal: 06-Independent Toileting Hygiene Goal: 06-Independent Shower/Bathe Self Goal: 05-Setup or Cl
[2019-11-10] MEDS: RIVAROXABAN 20 MG TABLET PO (17:25)
[2019-11-10] MEDS: LATANOPROST 0.005% OP SOLN 2.5 ML BTL 1 DROP EACH EYE (20:38)
[2019-11-10 22:00] VITALS: BP 121/66; PULSE 69; RESP 18; TEMP 36.6; O2SAT 99
[2019-11-11 06:00] VITALS: BP 146/84; PULSE 70; RESP 18; TEMP 36.9; O2SAT 100
[2019-11-11] MEDS: DORZOLAMIDE HCL 2% OPHTH DROPS 1 DROP EACH EYE ×3 (07:00→20:44)
[2019-11-11] MEDS: PANTOPRAZOLE 40 MG TABLET PO ×2 (07:00→20:31)
[2019-11-11] MEDS: CARBIDOPA/LEVODOPA 25/100 MG TABLET 2 TABLET PO ×3 (07:47→17:27)
[2019-11-11] MEDS: CHOLECALCIFEROL 1,000 UNIT TABLET 2000 UNITS PO (07:48)
[2019-11-11] MEDS: FERROUS SULFATE 324 MG TABLET PO (07:48)
[2019-11-11] MEDS: GABAPENTIN 300 MG CAPSULE PO ×2 (07:48→17:27)
[2019-11-11] MEDS: ACETAMINOPHEN 325 MG TABLET 650 MG PO (07:49)
--- NOTE | 2019-11-11 13:06 | WPDNEURORHBP ---
Subjective Date/time seen: 11/11/19 13:06 Interval history: this 84-year-old gentleman with several is history of Parkinson's disease with the acute exacerbation of the same is here on the acute rehab he has improved some however would need increased carbidopa levodopa depending upon his response is certainly has difficult time walking and that is why he is here he denies any headache nausea vomiting chest pain shortness of breath fever chills sore throat Review of Systems Review of Systems: All systems reviewed & are unremarkable except as noted in HPI and below Functional Status Ambulation Ability Ability to Ambulate 10 Feet: Minimum Assistance X 1 Ability to Ambulate 50 Feet With 2 Turns: Minimum Assistance X 1 Ability to Ambulate 150 Feet: Minimum Assistance X 1 Ambulation Assistive Devices: Walker, Wheeled Transfers Ability Ability to Transfer In/Out of Chair: Moderate Assistance X 1 Exam Const: General: comfortable and no acute distress HENMT: General nose exam: Normal nares present Mouth: Yes moist mucous membranes Eyes: General: appearance normal, both eyes and all related structures Neck: Neck: supple and no JVD Resp: Effort & Inspection: normal respiratory effort Auscultation: clear to auscultation bilaterally Cardio: Rate: regular rate Rhythm: regular rhythm GI: GI Palp: Yes Soft to palpation Auscultation: normal bowel sounds Skin: General skin exam: normal color and no rashes or lesions noted Neuro: Other: patient is awake and alert has signs of moderately severe advanced Parkinson's disease however is on a lower dose of carbidopa because of the changes he has had on the acute medical floor and he would need higher dose he denies any further problems able to eat fairly well he has dysphonia and dysarthria right now his well oriented follows commands of course has a shuffling gait Extrem: General: normal to inspection Psych: Mental Status: mental status grossly normal Objective Data Vital Signs Vital Signs: Vital Signs - 24 hr 11/11/19 14:00 11/11/19 22:00 11/12/19 06:00 Temperature 36.4 C 36.2 C L 36.9 C Pulse Rate 72 66 73 Respiratory Rate 18 18 18 Blood Pressure 96/61 L 110/62 133/81 Pulse Oximetry 100 99 98 Intake/Output Intake/Output: Intake & Output 11/09/19 11/10/19 11/11/19 11/12/19 23:59 23:59 23:59 23:59 Intake Total 240 720 840 360 Balance 240 720 840 360 Meds/Results Medications: Active Medications Generic Name Dose Route Start Last Admin Trade Name Burak PRN Reason Stop Dose Admin Acetaminophen 650 mg 11/09/19 18:23 11/12/19 00:54 Tylenol Tablet PO 650 mg Q4H PRN Administration Mild Pain (1-3) Or Fever Carbidopa/Levodopa 2 tablet 11/10/19 08:00 11/12/19 12:33 Sinemet 25/100 Mg PO 2 tablet TIDWM PATRIZIA Administration Cyclosporine 1 drop 11/10/19 09:00 11/12/19 09:38 Restasis EACH EYE 1 drop Q12HR PATRIZIA Administration Dorzolamide HCl 1 drop 11/12/19 09:00 11/12/19 12:33 Trusopt EACH EYE 1 drop TID PATRIZIA Administration Ferrous Sulfate 324 mg 11/12/19 07:00 11/12/19 06:09 Ferrous Sulfate PO 324 mg DAILY@0700 PATRIZIA Administration Gabapentin 300 mg 11/11/19 17:00 11/12/19 06:09 Neurontin PO 300 mg 0700,1700 PATRIZIA Administration Latanoprost 1 drop 11/09/19 21:00 11/11/19 20:43 Xalatan EACH EYE 1 drop HS PATRIZIA Administration Pantoprazole Sodium 40 mg 11/11/19 21:00 11/12/19 06:09 Protonix PO 40 mg 0700,2100 PATRIZIA Administration Rivaroxaban 20 mg 11/10/19 17:00 11/11/19 17:27 Xarelto PO 20 mg DAILY@1700 PATRIZIA Administration Valacyclovir HCl 1,000 mg 11/09/19 18:23 Valtrex PO BID PRN flare Vitamin D 2,000 unit 11/12/19 07:00 11/12/19 06:10 Vitamin D PO 2,000 unit DAILY@0700 PATRIZIA Administration Progress Note: A&P Assessment and Plan (1) History of cardiac radiofrequency ablation (RFA): Code(s): Z98.890 - Other specified postproced
[2019-11-11 14:00] VITALS: BP 96/61; PULSE 72; RESP 18; TEMP 36.4; O2SAT 100
[2019-11-11] MEDS: RIVAROXABAN 20 MG TABLET PO (17:27)
[2019-11-11] MEDS: LATANOPROST 0.005% OP SOLN 2.5 ML BTL 1 DROP EACH EYE (20:43)
[2019-11-11 22:00] VITALS: BP 110/62; PULSE 66; RESP 18; TEMP 36.2; O2SAT 99
[2019-11-12] MEDS: ACETAMINOPHEN 325 MG TABLET 650 MG PO (00:54)
[2019-11-12 06:00] VITALS: BP 133/81; PULSE 73; RESP 18; TEMP 36.9; O2SAT 98
[2019-11-12] MEDS: PANTOPRAZOLE 40 MG TABLET PO ×2 (06:09→20:13)
[2019-11-12] MEDS: GABAPENTIN 300 MG CAPSULE PO ×2 (06:09→17:41)
[2019-11-12] MEDS: FERROUS SULFATE 324 MG TABLET PO (06:09)
[2019-11-12] MEDS: CHOLECALCIFEROL 1,000 UNIT TABLET 2000 UNITS PO (06:10)
[2019-11-12] MEDS: CARBIDOPA/LEVODOPA 25/100 MG TABLET 2 TABLET PO ×3 (09:38→17:40)
[2019-11-12] MEDS: DORZOLAMIDE HCL 2% OPHTH DROPS 1 DROP EACH EYE ×3 (09:39→17:41)
[2019-11-12 14:00] VITALS: BP 107/62; PULSE 66; RESP 16; TEMP 36.7; O2SAT 100
--- NOTE | 2019-11-12 15:40 | WPDNEURORHBP ---
Subjective Date/time seen: 11/12/19 15:40 Interval history: the patient is here with worsening Parkinson's disease his doing fairly well and progressing in the rehab he denies any new complaints particularly headache nausea vomiting chest pain shortness of breath fever chills sore throat Review of Systems Review of Systems: All systems reviewed & are unremarkable except as noted in HPI and below Functional Status Ambulation Ability Ability to Ambulate 10 Feet: Minimum Assistance X 1 Ability to Ambulate 50 Feet With 2 Turns: Minimum Assistance X 1 Ability to Ambulate 150 Feet: Minimum Assistance X 1 Ambulation Assistive Devices: Walker, Wheeled Transfers Ability Ability to Transfer In/Out of Chair: Moderate Assistance X 1 Exam Const: General: comfortable and no acute distress HENMT: General nose exam: Normal nares present Mouth: Yes moist mucous membranes Eyes: General: appearance normal, both eyes and all related structures Neck: Neck: supple and no JVD Resp: Effort & Inspection: normal respiratory effort Auscultation: clear to auscultation bilaterally Cardio: Rate: regular rate Rhythm: regular rhythm GI: GI Palp: Yes Soft to palpation Auscultation: normal bowel sounds Skin: General skin exam: normal color and no rashes or lesions noted Neuro: Other: patient is awake and alert well oriented has dysphonia dysarthria low volume soliz and parts of Parkinson's disease he has very slow improvement and we may have to increase his carbidopa levodopa further to see if he gets more benefit from it Extrem: General: normal to inspection Psych: Mental Status: mental status grossly normal Objective Data Vital Signs Vital Signs: Vital Signs - 24 hr 11/11/19 22:00 11/12/19 06:00 11/12/19 14:00 Temperature 36.2 C L 36.9 C 36.7 C Pulse Rate 66 73 66 Respiratory Rate 18 18 16 Blood Pressure 110/62 133/81 107/62 Pulse Oximetry 99 98 100 Intake/Output Intake/Output: Intake & Output 11/09/19 11/10/19 11/11/19 11/12/19 23:59 23:59 23:59 23:59 Intake Total 240 720 840 600 Balance 240 720 840 600 Meds/Results Medications: Active Medications Generic Name Dose Route Start Last Admin Trade Name Freq PRN Reason Stop Dose Admin Acetaminophen 650 mg 11/09/19 18:23 06/05/20 00:54 Tylenol Tablet PO 650 mg Q4H PRN Administration Mild Pain (1-3) Or Fever Carbidopa/Levodopa 2 tablet 11/10/19 08:00 11/12/19 12:33 Sinemet 25/100 Mg PO 2 tablet TIDWM PATRIZIA Administration Cyclosporine 1 drop 11/10/19 09:00 11/12/19 09:38 Restasis EACH EYE 1 drop Q12HR PATRIZIA Administration Dorzolamide HCl 1 drop 11/12/19 09:00 11/12/19 12:33 Trusopt EACH EYE 1 drop TID PATRIZIA Administration Ferrous Sulfate 324 mg 11/12/19 07:00 11/12/19 06:09 Ferrous Sulfate PO 324 mg DAILY@0700 PATRIZIA Administration Gabapentin 300 mg 11/11/19 17:00 11/12/19 06:09 Neurontin PO 300 mg 0700,1700 PATRIZIA Administration Latanoprost 1 drop 11/09/19 21:00 11/11/19 20:43 Xalatan EACH EYE 1 drop HS PATRIZIA Administration Pantoprazole Sodium 40 mg 11/11/19 21:00 11/12/19 06:09 Protonix PO 40 mg 0700,2100 PATRIZIA Administration Rivaroxaban 20 mg 11/10/19 17:00 11/11/19 17:27 Xarelto PO 20 mg DAILY@1700 PATRIZIA Administration Valacyclovir HCl 1,000 mg 11/09/19 18:23 Valtrex PO BID PRN flare Vitamin D 2,000 unit 11/12/19 07:00 11/12/19 06:10 Vitamin D PO 2,000 unit DAILY@0700 PATRIZIA Administration Progress Note: A&P Assessment and Plan (1) History of cardiac radiofrequency ablation (RFA): Code(s): Z98.890 - Other specified postprocedural states Status: Acute (2) Pacemaker: Code(s): Z95.0 - Presence of cardiac pacemaker Status: Acute (3) Paroxysmal atrial fibrillation: Code(s): I48.0 - Paroxysmal atrial fibrillation Status: Acute (4) Parkinsons: Code(s): G20 - Parkinson's disease Stat
[2019-11-12] MEDS: RIVAROXABAN 20 MG TABLET PO (17:40)
[2019-11-12] MEDS: LATANOPROST 0.005% OP SOLN 2.5 ML BTL 1 DROP EACH EYE (20:14)
[2019-11-12 22:00] VITALS: BP 130/67; PULSE 68; RESP 18; TEMP 36.6; O2SAT 95
[2019-11-13] MEDS: ACETAMINOPHEN 325 MG TABLET 650 MG PO (05:11)
[2019-11-13 06:00] VITALS: BP 151/89; PULSE 69; RESP 18; TEMP 36.4; O2SAT 100
[2019-11-13] MEDS: GABAPENTIN 300 MG CAPSULE PO ×2 (06:38→17:08)
[2019-11-13] MEDS: PANTOPRAZOLE 40 MG TABLET PO (06:39)
[2019-11-13] MEDS: FERROUS SULFATE 324 MG TABLET PO (06:39)
[2019-11-13] MEDS: CHOLECALCIFEROL 1,000 UNIT TABLET 2000 UNITS PO (06:39)
[2019-11-13] MEDS: DORZOLAMIDE HCL 2% OPHTH DROPS 1 DROP EACH EYE ×3 (07:57→17:08)
[2019-11-13] MEDS: CARBIDOPA/LEVODOPA 25/100 MG TABLET 2 TABLET PO ×3 (07:57→17:08)
[2019-11-13] MEDS: MAGNESIUM HYDROXIDE SUSP 30 ML UDC PO (12:09)
[2019-11-13 14:00] VITALS: BP 124/70; PULSE 70; RESP 18; TEMP 36.3; O2SAT 100
--- NOTE | 2019-11-13 14:51 | PCPTNOTE ---
Winston Stanley was evaluated for a wheeled walker on 11/13/2019 by this physical therapist assistant professor of physics. The wheeled walker will resolve patient's mobility limitations and will be used for ADL's within the home. The patient can safely use the wheeled walker. ?The wheeled walker will resolve the patient?s mobility deficits, including decreased strength, endurance and impaired balance.
[2019-11-13] MEDS: RIVAROXABAN 20 MG TABLET PO (17:08)
[2019-11-13] MEDS: LATANOPROST 0.005% OP SOLN 2.5 ML BTL 1 DROP EACH EYE (20:30)
[2019-11-13] MEDS: SENNOSIDES 8.6 MG TABLET PO (20:30)
[2019-11-13 22:00] VITALS: BP 131/77; PULSE 68; RESP 18; TEMP 36.3; O2SAT 98
[2019-11-14] MEDS: ACETAMINOPHEN 325 MG TABLET 650 MG PO (04:39)
[2019-11-14 06:00] VITALS: BP 156/87; PULSE 70; RESP 16; TEMP 36.5; O2SAT 100
[2019-11-14] MEDS: CHOLECALCIFEROL 1,000 UNIT TABLET 2000 UNITS PO (06:40)
[2019-11-14] MEDS: PANTOPRAZOLE 40 MG TABLET PO (06:40)
[2019-11-14] MEDS: GABAPENTIN 300 MG CAPSULE PO ×2 (06:40→17:11)
[2019-11-14] MEDS: DORZOLAMIDE HCL 2% OPHTH DROPS 1 DROP EACH EYE ×3 (08:36→17:11)
[2019-11-14] MEDS: CARBIDOPA/LEVODOPA 25/100 MG TABLET 2 TABLET PO ×3 (08:37→17:11)
--- NOTE | 2019-11-14 10:38 | WPDNEURORHBP ---
Subjective Date/time seen: Parkisonism with no specific [id number]/07/20 10:38 Review of Systems Review of Systems: All systems reviewed & are unremarkable except as noted in HPI and below Functional Status Ambulation Ability Ability to Ambulate 10 Feet: Minimum Assistance X 1 Ability to Ambulate 50 Feet With 2 Turns: Minimum Assistance X 1 Ability to Ambulate 150 Feet: Minimum Assistance X 1 Ambulation Assistive Devices: Walker, Wheeled Transfers Ability Ability to Transfer In/Out of Chair: Minimum Assistance X 1 Exam Const: General: cooperative, comfortable, no acute distress, alert and awake Nutritional Appearance: average body habitus Orientation/consciousness: oriented to person and oriented to place Limitations: no limitations HENMT: General nose exam: Normal external nose present and No nasal discharge present Face and sinus: face symmetric Mouth: Yes Normal oral and palatal mucosa present and Yes tongue normal Eyes: General: appearance normal, both eyes and all related structures Alignment and Position: alignment normal Periorbital: periorbital findings normal Eyelids: eyelids normal Conjunctivae: conjunctivae normal Sclera: sclerae normal Cornea: corneas normal Pupils: Equal, round and reactive pupils present and Pupil accommodation reflex normal EOM: EOMs intact bilaterally Neck: Neck: full ROM and no lymphadenopathy Resp: Effort & Inspection: normal respiratory effort Auscultation: clear to auscultation bilaterally Cardio: Jugular venous distension: no JVD Rate: regular rate Rhythm: regular rhythm GI: Auscultation: normal bowel sounds Skin: General skin exam: no rashes or lesions noted Neuro: General: oriented to person, oriented to place and moves all extremities Cranial nerves: Yes CN's II-XII intact bilaterally, Yes Equal, round and reactive pupils present, Yes Bilaterally intact EOM present, Yes Nystagmus not present, Yes Midline tongue present, Yes Ability to bilaterally rotate head present and Yes Ability to bilaterally elevate shoulders present Speech: normal speech (slow) Motor exam (neuro): Abnormal motor strength present (4/5) and Motor abnormalites present Sensory Exam: normal sensation Deep tendon reflexes (DTR's): Right triceps reflex intensity grade: 1+, Left triceps reflex intensity grade: 1+, Rt Biceps (C5, C6): 1+, Left biceps reflex intensity grade: 1+, Right brachioradialis reflex intensity grade: 1+, Left brachioradialis reflex intensity grade: 1+, Right patellar reflex intensity grade: 1+, Left patellar reflex intensity grade: 1+, Right ankle reflex intensity grade: 1+ and Left ankle reflex intensity grade: 1+ Plantar Reflex Responses: downgoing: bilateral Coordination: Romberg test positive, Normal rapid alternating movements of the distal upper extremity present (Neuro) (slow) and Normal rapid alternating movements of the distal lower extremity present (Neuro) Extrem: General: normal to inspection Psych: Speech and movement: Slowed speech present (Psych) Affect: normal affect Attitude: cooperative Thought process: Normal thought process present Thought content: Yes Normal thought content present Insight: Fair insight present (Psych) Judgement: Fair judgement present (Psych) Objective Data Vital Signs Vital Signs: Vital Signs - 24 hr 11/13/19 14:00 11/13/19 22:00 11/14/19 06:00 Temperature 36.3 C L 36.3 C L 36.5 C Pulse Rate 70 68 70 Respiratory Rate 18 18 16 Blood Pressure 124/70 131/77 156/87 H Pulse Oximetry 100 98 100 Intake/Output Intake/Output: Intake & Output 11/11/19 11/12/19 11/13/19 11/14/19 23:59 23:59 23:59 23:59 Intake Total 840 840 720 240 Balance 840 840 720 240 Meds/Results Medications: Active Medications Generic Name Dose Route Start Last Admin Trade Name Freq PRN Reason Stop Dose Admin Acetaminophen 650 mg 11/09/19 18:23 11/14/19 04:39 Tylenol Tablet PO 650 mg Q4H PRN Administration Mild Pain (1-3) Or Fever Carb
--- NOTE | 2019-11-14 11:18 | PC.NURSE ---
skin tears to right arm are healing, without signs of infection, all areas cleansed with dry dressing applied
[2019-11-14 14:00] VITALS: BP 140/62; PULSE 82; RESP 18; TEMP 36.6; O2SAT 100
[2019-11-14] MEDS: FERROUS SULFATE 324 MG TABLET PO (17:12)
[2019-11-14] MEDS: RIVAROXABAN 20 MG TABLET PO (17:12)
[2019-11-14] MEDS: SENNOSIDES 8.6 MG TABLET PO (21:11)
[2019-11-14] MEDS: LATANOPROST 0.005% OP SOLN 2.5 ML BTL 1 DROP EACH EYE (21:11)
[2019-11-14 22:00] VITALS: BP 114/63; PULSE 70; RESP 18; TEMP 36.8; O2SAT 100
[2019-11-15 06:00] VITALS: BP 154/85; PULSE 70; RESP 18; TEMP 36.8; O2SAT 100
[2019-11-15] MEDS: GABAPENTIN 300 MG CAPSULE PO ×2 (06:46→17:36)
[2019-11-15] MEDS: PANTOPRAZOLE 40 MG TABLET PO (06:46)
[2019-11-15] MEDS: CHOLECALCIFEROL 1,000 UNIT TABLET 2000 UNITS PO (06:47)
[2019-11-15] MEDS: CARBIDOPA/LEVODOPA 25/100 MG TABLET 2 TABLET PO ×3 (08:27→17:35)
[2019-11-15] MEDS: DORZOLAMIDE HCL 2% OPHTH DROPS 1 DROP EACH EYE ×3 (08:28→17:36)
--- NOTE | 2019-11-15 12:18 | PCDIET ---
Nutrition Follow-Up Complete: No nutrition diagnosis at this time. Nutrition Goal: Patient to consume 75% of meals or greater. Goal met. Patient consuming 75-100% of meals on regular diet. Last recorded weight is 74.4 kg. Recommend obtaining new weight. Bowel Motility: +BM on 11/14/19. Labs Reviewed: No new chemistry. Meds Noted: Sinemet, Ferrous Sulfate, Senokot, Protonix, Miralax, Vitamin D Additional Notes: No documented skin breakdown. Nutrition Monitoring and Evaluation: Follow up in 7 days.
[2019-11-15 14:00] VITALS: BP 122/70; PULSE 70; RESP 18; TEMP 36.9; O2SAT 100
[2019-11-15] MEDS: RIVAROXABAN 20 MG TABLET PO (17:36)
[2019-11-15] MEDS: FERROUS SULFATE 324 MG TABLET PO (17:36)
[2019-11-15] MEDS: LATANOPROST 0.005% OP SOLN 2.5 ML BTL 1 DROP EACH EYE (20:48)
[2019-11-15] MEDS: SENNOSIDES 8.6 MG TABLET PO (20:52)
[2019-11-15 22:00] VITALS: BP 135/70; PULSE 70; RESP 16; TEMP 36.8; O2SAT 99
[2019-11-16 05:44] VITALS: BP 164/98; PULSE 71; RESP 16; TEMP 36.4; O2SAT 100
[2019-11-16] MEDS: CARBIDOPA/LEVODOPA 25/100 MG TABLET 2 TABLET PO ×3 (07:54→17:11)
[2019-11-16] MEDS: PANTOPRAZOLE 40 MG TABLET PO (07:54)
[2019-11-16] MEDS: DORZOLAMIDE HCL 2% OPHTH DROPS 1 DROP EACH EYE ×3 (07:55→17:11)
[2019-11-16] MEDS: CHOLECALCIFEROL 1,000 UNIT TABLET 2000 UNITS PO (12:27)
[2019-11-16] MEDS: GABAPENTIN 300 MG CAPSULE PO ×2 (12:27→17:11)
--- NOTE | 2019-11-16 13:53 | WPDNEURORHBP ---
Subjective Date/time seen: 11/16/19 13:53 Interval history: this 84-year-old gentleman is here because of excess ablation of Parkinson's disease. He is doing fairly well and improving with the help and the making turns fairly neatly with a walker denies any headache nausea vomiting chest pain shortness of breath fever chills sore throat Review of Systems Review of Systems: All systems reviewed & are unremarkable except as noted in HPI and below Functional Status Ambulation Ability Ability to Ambulate 10 Feet: Contact Guard Ability to Ambulate 50 Feet With 2 Turns: Contact Guard Ability to Ambulate 150 Feet: Contact Guard Ambulation Assistive Devices: Walker, Wheeled Transfers Ability Ability to Transfer In/Out of Chair: Contact Guard Exam Const: General: comfortable and no acute distress HENMT: General nose exam: Normal nares present Mouth: Yes moist mucous membranes Eyes: General: appearance normal, both eyes and all related structures Neck: Neck: supple and no JVD Resp: Effort & Inspection: normal respiratory effort Auscultation: clear to auscultation bilaterally Cardio: Rate: regular rate Rhythm: regular rhythm GI: GI Palp: Yes Soft to palpation Auscultation: normal bowel sounds Skin: General skin exam: normal color and no rashes or lesions noted Neuro: Other: patient is awake and alert well oriented his dysarthria dysphonia is improving overall picture of the Parkinson's disease is improving he is more mobile and making progress Extrem: General: normal to inspection Objective Data Vital Signs Vital Signs: Vital Signs - 24 hr 11/15/19 14:00 11/15/19 22:00 11/16/19 05:44 Temperature 36.9 C 36.8 C 36.4 C Pulse Rate 70 70 71 Respiratory Rate 18 16 16 Blood Pressure 122/70 135/70 164/98 H Pulse Oximetry 100 99 100 Intake/Output Intake/Output: Intake & Output 11/13/19 11/14/19 11/15/19 11/16/19 23:59 23:59 23:59 23:59 Intake Total 720 720 720 320 Balance 720 720 720 320 Meds/Results Medications: Active Medications Generic Name Dose Route Start Last Admin Trade Name Freq PRN Reason Stop Dose Admin Acetaminophen 650 mg 11/09/19 18:23 11/14/19 04:39 Tylenol Tablet PO 650 mg Q4H PRN Administration Mild Pain (1-3) Or Fever Carbidopa/Levodopa 2 tablet 11/10/19 08:00 11/16/19 12:27 Sinemet 25/100 Mg PO 2 tablet TIDWM PATRIZIA Administration Cyclosporine 1 drop 11/10/19 09:00 11/16/19 07:55 Restasis EACH EYE 1 drop Q12HR PATRIZIA Administration Dorzolamide HCl 1 drop 11/12/19 09:00 11/16/19 12:27 Trusopt EACH EYE 1 drop TID PATRIZIA Administration Ferrous Sulfate 324 mg 11/14/19 18:00 11/15/19 17:36 Ferrous Sulfate PO 324 mg EVENING PATRIZIA Administration Gabapentin 300 mg 11/11/19 17:00 11/16/19 12:27 Neurontin PO 300 mg 0700,1700 PATRIZIA Administration Latanoprost 1 drop 11/09/19 21:00 11/15/19 20:48 Xalatan EACH EYE 1 drop HS PATRIZIA Administration Magnesium Hydroxide 30 ml 11/13/19 10:58 Milk Of Magnesia PO DAILY PRN Constipation Pantoprazole Sodium 40 mg 11/14/19 07:00 11/16/19 07:54 Protonix PO 40 mg 0700 PATRIZIA Administration Polyethylene Glycol 17 gm 11/13/19 11:00 Miralax PO QAM&HS PRN Constipation Rivaroxaban 20 mg 11/10/19 17:00 11/15/19 17:36 Xarelto PO 20 mg DAILY@1700 PATRIZIA Administration Senna 8.6 mg 11/13/19 21:00 11/15/19 20:52 Senokot Tablet PO 8.6 mg HS PATRIZIA Administration Valacyclovir HCl 1,000 mg 11/09/19 18:23 Valtrex PO BID PRN flare Vitamin D 2,000 unit 11/12/19 07:00 11/16/19 12:27 Vitamin D PO 2,000 unit DAILY@0700 PATRIZIA Administration Progress Note: A&P Assessment and Plan (1) History of cardiac radiofrequency ablation (RFA): Code(s): Z98.890 - Other specified postprocedural states Status: Acute (2) Pacemaker: Code(s): Z95.0 - Presence of cardiac pacemaker Status: Acut
[2019-11-16 14:00] VITALS: BP 139/81; PULSE 67; RESP 18; TEMP 36.3; O2SAT 100
[2019-11-16] MEDS: FERROUS SULFATE 324 MG TABLET PO (17:12)
[2019-11-16] MEDS: RIVAROXABAN 20 MG TABLET PO (17:12)
[2019-11-16] MEDS: LATANOPROST 0.005% OP SOLN 2.5 ML BTL 1 DROP EACH EYE (20:49)
[2019-11-16] MEDS: SENNOSIDES 8.6 MG TABLET PO (20:50)
[2019-11-16 22:00] VITALS: BP 130/83; PULSE 72; RESP 18; TEMP 35.9; O2SAT 100
[2019-11-17 05:17] LABS: Basophils Percent Auto 0.6 % (0.2-1.2); Eosinophils Absolute Auto 0.2 K/mm3 (0-0.3); Eosinophils Percent Auto 4.8 % (0-4.4); Hematocrit 28.7 % (42.0-52.0); Hemoglobin 9.4 g/dL (14.0-18.0); Immature Granulocyte Absolute 0.02 K/mm3 (0.00-0.031); Immature Granulocyte Percent A 0.4 % (0-0.5); Lymphocytes Absolute Auto 0.66 K/mm3 (0.9-3.2); Lymphocytes Percent Auto 14.3 % (18.3-44.2); Mean Corpuscular HGB Conc 32.8 g/dl (32-36); Mean Corpuscular Hemoglobin 32.1 pg (26-34); Mean Platelet Volume 9.4 fl (7.4-10.4); Monocytes Absolute Auto 0.4 K/mm3 (0.1-0.6); Monocytes Percent Auto 8.4 % (2.6-8.5); Neutrophils Absolute Auto 3.3 K/mm3 (1.3-6.7); Neutrophils Percent Auto 71.5 % (45.5-73.1); Platelet Count Result 225 k/mm3 (150-375); Red Blood Count 2.93 M/mm3 (4.6-6.20); Red Cell Distribution Width 14.4 % (11.5-14.5); White Blood Count 4.6 K/mm3 (4.5-10.0)
[2019-11-17 05:30] LABS: Blood Urea Nitrogen 23 mg/dL (9-20); Calcium 8.5 mg/dL (8.4-10.2); Carbon Dioxide 29 mmol/L (22-30); Chloride 102 mmol/L (98-107); Estimated CRCL calculation 58 ml/min; Estimated Glomerular Filt Rate > 60; Glucose 96 mg/dL (75-110); Potassium 3.2 mmol/L (3.4-5.0); Sodium 134 mmol/L (137-145)
[2019-11-17 06:00] VITALS: BP 151/90; PULSE 73; RESP 18; TEMP 36.4; O2SAT 100
[2019-11-17] MEDS: GABAPENTIN 300 MG CAPSULE PO ×2 (06:43→17:22)
[2019-11-17] MEDS: CHOLECALCIFEROL 1,000 UNIT TABLET 2000 UNITS PO (06:44)
[2019-11-17] MEDS: PANTOPRAZOLE 40 MG TABLET PO (06:44)
[2019-11-17] MEDS: CARBIDOPA/LEVODOPA 25/100 MG TABLET 2 TABLET PO ×3 (07:45→17:22)
[2019-11-17] MEDS: DORZOLAMIDE HCL 2% OPHTH DROPS 1 DROP EACH EYE ×3 (07:45→17:22)
[2019-11-17] MEDS: POTASSIUM CHLORIDE 10 MEQ TABLET PO (11:56)
--- NOTE | 2019-11-17 12:19 | WPDNEURORHBP ---
Subjective Date/time seen: 11/17/19 12:19 Interval history: this 84-year-old gentleman with the excess survey anguiano of underlying Parkinson's disease is here getting the physical therapy occupational therapy speech therapy and gait training he denies any headache nausea vomiting chest pain or shortness of breath also denies any choking on foods and engage in therapy Be in the labs performed today are fairly decent Review of Systems Review of Systems: All systems reviewed & are unremarkable except as noted in HPI and below Functional Status Ambulation Ability Ability to Ambulate 10 Feet: Contact Guard Ability to Ambulate 50 Feet With 2 Turns: Contact Guard Ability to Ambulate 150 Feet: Contact Guard Ambulation Assistive Devices: Walker, Wheeled Transfers Ability Ability to Transfer In/Out of Chair: Standby Assistance Exam Const: General: comfortable and no acute distress HENMT: General nose exam: Normal nares present Mouth: Yes moist mucous membranes Eyes: General: appearance normal, both eyes and all related structures Neck: Neck: supple and no JVD Resp: Effort & Inspection: normal respiratory effort Auscultation: clear to auscultation bilaterally Cardio: Rate: regular rate Rhythm: regular rhythm GI: GI Palp: Yes Soft to palpation Auscultation: normal bowel sounds Skin: General skin exam: normal color and no rashes or lesions noted Neuro: Other: patient is awake and alert well oriented and with improving signs of Parkinson's disease and also improving in the PT and OT with the help of the on walker Extrem: General: normal to inspection Psych: Mental Status: mental status grossly normal Objective Data Vital Signs Vital Signs: Vital Signs - 24 hr 11/16/19 14:00 11/16/19 22:00 11/17/19 06:00 Temperature 36.3 C L 35.9 C L 36.4 C Pulse Rate 67 72 73 Respiratory Rate 18 18 18 Blood Pressure 139/81 130/83 151/90 H Pulse Oximetry 100 100 100 Intake/Output Intake/Output: Intake & Output 11/14/19 11/15/19 11/16/19 11/17/19 23:59 23:59 23:59 23:59 Intake Total 720 720 440 240 Balance 720 720 440 240 Meds/Results Medications: Active Medications Generic Name Dose Route Start Last Admin Trade Name Freq PRN Reason Stop Dose Admin Acetaminophen 650 mg 11/09/19 18:23 11/14/19 04:39 Tylenol Tablet PO 650 mg Q4H PRN Administration Mild Pain (1-3) Or Fever Carbidopa/Levodopa 2 tablet 11/10/19 08:00 11/17/19 11:56 Sinemet 25/100 Mg PO 2 tablet TIDWM [facility] Administration Cyclosporine 1 drop 11/10/19 09:00 11/17/19 07:45 Restasis EACH EYE 1 drop Q12HR PATRIZIA Administration Dorzolamide HCl 1 drop 11/12/19 09:00 11/17/19 11:57 Trusopt EACH EYE 1 drop TID [facility] Administration Ferrous Sulfate 324 mg 11/14/19 18:00 11/16/19 17:12 Ferrous Sulfate PO 324 mg EVENING [facility] Administration Gabapentin 300 mg 11/11/19 17:00 11/17/19 06:43 Neurontin PO 300 mg 0700,1700 [facility] Administration Latanoprost 1 drop 11/09/19 21:00 11/16/19 20:49 Xalatan EACH EYE 1 drop HS [facility] Administration Magnesium Hydroxide 30 ml 11/13/19 10:58 Milk Of Magnesia PO DAILY PRN Constipation Pantoprazole Sodium 40 mg 11/14/19 07:00 11/17/19 06:44 Protonix PO 40 mg 0700 [facility] Administration Polyethylene Glycol 17 gm 11/13/19 11:00 Miralax PO QAM&HS PRN Constipation Potassium Chloride 10 meq 11/18/19 08:00 Kcl Tablet PO DAILY@0800 [facility] Rivaroxaban 20 mg 11/10/19 17:00 11/16/19 17:12 Xarelto PO 20 mg DAILY@1700 [facility] Administration Senna 8.6 mg 11/13/19 21:00 11/16/19 20:50 Senokot Tablet PO 8.6 mg HS [facility] Administration Valacyclovir HCl 1,000 mg 11/09/19 18:23 Valtrex PO BID PRN flare Vitamin D 2,000 unit 11/12/19 07:00 11/17/19 06:44 Vitamin D PO 2,000 unit DAILY@0700 [facility] Administration Labs Labs: Laboratory Results - last 24 hr 11/17/19
[2019-11-17 14:00] VITALS: BP 146/85; PULSE 67; RESP 20; TEMP 36.5; O2SAT 100
[2019-11-17] MEDS: ONDANSETRON HCL ODT 4 MG TABLET PO (14:27)
[2019-11-17] MEDS: RIVAROXABAN 20 MG TABLET PO (17:22)
[2019-11-17] MEDS: FERROUS SULFATE 324 MG TABLET PO (17:22)
[2019-11-17] MEDS: LATANOPROST 0.005% OP SOLN 2.5 ML BTL 1 DROP EACH EYE (21:08)
[2019-11-17] MEDS: SENNOSIDES 8.6 MG TABLET PO (21:08)
[2019-11-17 22:00] VITALS: BP 145/79; PULSE 70; RESP 17; TEMP 36.9; O2SAT 100
[2019-11-18 04:55] LABS: Blood Urea Nitrogen 17 mg/dL (9-20); Calcium 8.6 mg/dL (8.4-10.2); Carbon Dioxide 31 mmol/L (22-30); Chloride 100 mmol/L (98-107); Estimated CRCL calculation 65 ml/min; Estimated Glomerular Filt Rate > 60; Glucose 102 mg/dL (75-110); Potassium 3.1 mmol/L (3.4-5.0); Sodium 135 mmol/L (137-145)
[2019-11-18 06:00] VITALS: BP 169/89; PULSE 69; RESP 18; TEMP 36.9; O2SAT 100
[2019-11-18] MEDS: PANTOPRAZOLE 40 MG TABLET PO (06:43)
[2019-11-18] MEDS: GABAPENTIN 300 MG CAPSULE PO ×2 (06:43→17:30)
[2019-11-18] MEDS: CHOLECALCIFEROL 1,000 UNIT TABLET 2000 UNITS PO (06:44)
[2019-11-18] MEDS: CARBIDOPA/LEVODOPA 25/100 MG TABLET 2 TABLET PO ×3 (09:50→17:29)
[2019-11-18] MEDS: DORZOLAMIDE HCL 2% OPHTH DROPS 1 DROP EACH EYE ×3 (09:50→17:29)
[2019-11-18 14:00] VITALS: BP 157/78; PULSE 88; RESP 18; TEMP 36.2; O2SAT 97
[2019-11-18] MEDS: RIVAROXABAN 20 MG TABLET PO (17:30)
[2019-11-18] MEDS: FERROUS SULFATE 324 MG TABLET PO (17:30)
[2019-11-18] MEDS: LATANOPROST 0.005% OP SOLN 2.5 ML BTL 1 DROP EACH EYE (21:14)
[2019-11-18] MEDS: SENNOSIDES 8.6 MG TABLET PO (21:14)
[2019-11-18 21:59] VITALS: BP 145/80; PULSE 68; RESP 16; TEMP 36.7; O2SAT 98
[2019-11-19 06:00] VITALS: BP 166/91; PULSE 71; RESP 18; TEMP 36.6; O2SAT 100
[2019-11-19] MEDS: PANTOPRAZOLE 40 MG TABLET PO (06:04)
[2019-11-19] MEDS: GABAPENTIN 300 MG CAPSULE PO (06:04)
[2019-11-19] MEDS: CHOLECALCIFEROL 1,000 UNIT TABLET 2000 UNITS PO (06:05)
[2019-11-19 08:00] VITALS: PULSE 71; RESP 18; O2SAT 100
[2019-11-19] MEDS: DORZOLAMIDE HCL 2% OPHTH DROPS 1 DROP EACH EYE ×2 (09:31→12:11)
[2019-11-19] MEDS: CARBIDOPA/LEVODOPA 25/100 MG TABLET 2 TABLET PO ×2 (09:31→12:10)
--- NOTE | 2019-11-19 11:43 | WPDNEURORHBP ---
Subjective Date/time seen: 11/19/19 11:43 Interval history: this 84-year-old gentleman is here because of the advanced Parkinson's disease he has gotten much better and will be ready to be discharged later this afternoon to the in did independent living facility [facility] where his also resides he does not have any specific complaints however his lab daughter shows his potassium continues to be low he was unable to tolerate the potassium tablet so I am going to venture to put him on potassium chloride powder see if he is able to tolerate that and will discharge him with that with follow-up BMP as an outpatient he denies any headache nausea vomiting chest pain shortness of breath fever chills or sore throat Review of Systems Review of Systems: All systems reviewed & are unremarkable except as noted in HPI and below Functional Status Ambulation Ability Ability to Ambulate 10 Feet: Standby Assistance Ability to Ambulate 50 Feet With 2 Turns: Standby Assistance Ability to Ambulate 150 Feet: Standby Assistance Ambulation Assistive Devices: Walker, Wheeled Transfers Ability Ability to Transfer In/Out of Chair: Standby Assistance Exam Const: General: comfortable and no acute distress HENMT: General nose exam: Normal nares present Mouth: Yes moist mucous membranes Eyes: General: appearance normal, both eyes and all related structures Neck: Neck: supple and no JVD Resp: Effort & Inspection: normal respiratory effort Auscultation: clear to auscultation bilaterally Cardio: Rate: regular rate Rhythm: regular rhythm Other: paced rhythm GI: GI Palp: Yes Soft to palpation Auscultation: normal bowel sounds Skin: General skin exam: normal color and no rashes or lesions noted Neuro: Other: patient is awake and alert well oriented follows all commands fairly well his dysphonia or dysarthria has improved his gait has improved he is ambulating much better of course with a walker and I told him that he should be using walker all the time otherwise he is going to fall and have also told him that you are on Xarelto and that is high risk drug and will cause any bleeding and the issues must be discussed with his neurologist was going to follow him later part of this month at [facility] and also with the squeegee operator and the other Family Physicians in any event the patient has done well here and is going to be discharged he says that he has all the medication at home Extrem: General: normal to inspection Psych: Mental Status: mental status grossly normal Objective Data Vital Signs Vital Signs: Vital Signs - 24 hr 11/18/19 14:00 11/18/19 21:59 11/19/19 06:00 Temperature 36.2 C L 36.7 C 36.6 C Pulse Rate 88 68 71 Respiratory Rate 18 16 18 Blood Pressure 157/78 H 145/80 H 166/91 H Pulse Oximetry 97 98 100 11/19/19 08:00 Temperature Pulse Rate 71 Respiratory Rate 18 Blood Pressure Pulse Oximetry 100 Intake/Output Intake/Output: Intake & Output 11/16/19 11/17/19 11/18/19 11/19/19 23:59 23:59 23:59 23:59 Intake Total 440 720 600 240 Balance 440 720 600 240 Meds/Results Medications: Active Medications Generic Name Dose Route Start Last Admin Trade Name Freq PRN Reason Stop Dose Admin Acetaminophen 650 mg 11/09/19 18:23 11/14/19 04:39 Tylenol Tablet PO 650 mg Q4H PRN Administration Mild Pain (1-3) Or Fever Carbidopa/Levodopa 2 tablet 11/10/19 08:00 11/19/19 09:31 Sinemet 25/100 Mg PO 2 tablet TIDWM PATRIZIA Administration Cyclosporine 1 drop 11/10/19 09:00 11/19/19 09:31 Restasis EACH EYE 1 drop Q12HR PATRIZIA Administration Dorzolamide HCl 1 drop 11/12/19 09:00 11/19/19 09:31 Trusopt EACH EYE 1 drop TID PATRIZIA Administration Ferrous Sulfate 324 mg 11/14/19 18:00 11/18/19 17:30 Ferrous Sulfate PO 324 mg EVENING PATRIZIA Administration Gabapentin 300 mg 11/11/19 17:00 11/19/19 06:04 Neurontin PO 300 mg 0700,1700 PATRIZIA Adm
[2019-11-19] MEDS: POTASSIUM CHLORIDE 20 MEQ PACKET (FOR LIQUID) PO (12:11)
--- NOTE | 2019-11-24 15:12 | PM.DS ---
DS: Admitting Diagnosis Admitting Diagnosis Admitting Diagnosis: Parkinson's disease DS: Discharge Diagnosis Discharge Diagnosis (1) History of cardiac radiofrequency ablation (RFA): Code(s): Z98.890 - Other specified postprocedural states Status: Acute (2) Pacemaker: Code(s): Z95.0 - Presence of cardiac pacemaker Status: Acute (3) Paroxysmal atrial fibrillation: Code(s): I48.0 - Paroxysmal atrial fibrillation Status: Acute (4) Parkinsons: Code(s): G20 - Parkinson's disease Status: Acute (5) Chronic anemia: Code(s): D64.9 - Anemia, unspecified Status: Acute (6) Essential hypertension: Code(s): I10 - Essential (primary) hypertension Status: Acute (7) Acute hypokalemia: Code(s): E87.6 - Hypokalemia Status: Acute (8) Frequent falls: Code(s): R29.6 - Repeated falls Status: Acute DS: Summary Hospital Course Reason for hospitalization: the patient was admitted with the above-mentioned diagnosis as mentioned above and he did improve after receiving the PT OT speech and gait training Hospital Course: the patient was able to achieve the following independent measures eating setup, oral hygiene setup, toileting supervision, bathing supervision, upper body dressing supervision, lower body dressing supervision footwear set up rolling in bed independent sitting to lying supervision lying to sitting supervision sit to stand supervision chair transfers supervision toilet transfers supervision car transfers walking 10 feet walking 50 feet with to turns walking 150 feet 2 turns and walking 10 feet uneven surfaces Pepin step 4 steps 12 steps parking up picking up object all set up or independent wheelchair 50 feet not available or not applicable wheelchair and 50 we not applicable Time Spent with Patient Time attestation: Total time spent providing and/or coordinating discharge services: Exam Const: General: comfortable and no acute distress HENMT: General nose exam: Normal nares present Mouth: Yes dry mucous membranes Eyes: General: appearance normal, both eyes and all related structures Neck: Neck: supple and no JVD Resp: Effort & Inspection: normal respiratory effort Auscultation: clear to auscultation bilaterally Cardio: Rate: regular rate Rhythm: regular rhythm GI: GI Palp: Yes Soft to palpation Auscultation: normal bowel sounds Skin: General skin exam: normal color Neuro: Other: improved neurological status and improved neurological signs Extrem: General: normal to inspection Psych: Mental Status: mental status grossly normal Discharge Plan Discharge Attending physician on discharge: Olvin Larson Patient Disposition: Home Health Service Activity: no driving and as tolerated Diet: as tolerated and regular Wound Care Instructions: other - see discharge instructions Discharge Instructions: you have had some scabbed areas to your arms. You may apply a dressing daily as needed. You may also leave these areas open to air to help them scab over and heal. you were started on a Potassium supplement during your hospital stay due to having a low potassium level. Please continue taking Potassium 10 mEq daily and follow up with your primary physician to see if this needs to be continued. you have been taking xarelto. You are at an increased risk for falls. Please remember to get up slowly and ensure you have your balance prior to walking anywhere. If you start to feel unsteady you need to sit down and take a rest break before continuing to walk. Keep your scheduled appointment with Dr. Mattson in [facility]. Per Care Coordination: Home Health services were arranged through [facility]. [facility] can be contacted at [phone]. Please fax discharge instructions to [facility] at [phone] or [phone]. PT/OT OUTPATIENT THERAPY TO [facility]
--- NOTE | 2019-12-07 10:17 | PCSTNOTE ---
SPEECH THERAPY DISCHARGE: On initial evaluation, pt presented with moderate communication impairment, specifically with vocal intensity & speech intelligibility. Breath support in vowel prolongation was at 11.3 seconds with a norm of 20. During conversational statements with cueing to achieve higher vocal intensities, pt achieved an average of 67.4 dB which fell within the normed dB of 65-70 and demonstrated pt stimuability to achieve higher volume levels and subsequently improved speech intelligibility. Pt presented with a h/o slurred and received OP treatment in 2019 to target both areas. LSVT program was recommended at that time, but pt refused due to the strict nature of the program, i.e. treatment requirements being 4x/week for 4 weeks. Upon discharged from OP speech therapy, pt was unable to consistently maintain higher volume levels. At this time, trial ST was recommended to revisit principles and strategies of achieving higher volume levels. During inpatient rehab, emphasis of ST was to improve vocal intensity. During structured therapy tasks, pt easily achieved desired vocal intensity levels (as measured by [facility]), however, outside of the controlled tasks, he was unable to sustain normal vocal intensity level. Pt consistently required mod/max cueing during conversation. HEP was given and retaught to pt. Pt should return to OP tx should he be interested in fully committing to utilizing the principles and strategies of achieving higher volume levels. [ End ]
== END 2019-11-19 13:30 | disposition home health service (06) | DRG 57 ==
PROVIDERS: Admitting Provider Psychiatry & Neurology Neurology; PCP Family Medicine; Visit Provider Psychiatry & Neurology Neurology
DX: G20 Parkinson's disease (principal); E87.1 Hypo-osmolality and hyponatremia; D64.9 Anemia, unspecified; E87.6 Hypokalemia; E83.51 Hypocalcemia; I10 Essential (primary) hypertension; I48.0 Paroxysmal atrial fibrillation; K21.9 Gastro-esophageal reflux disease without esophagitis; R29.6 Repeated falls; Z96.653 Presence of artificial knee joint, bilateral; Z95.0 Presence of cardiac pacemaker; Z87.891 Personal history of nicotine dependence; Z79.01 Long term (current) use of anticoagulants
CPT/HCPCS: 36415; 80048; 85025; 92507; 92524; 97110; 97116; 97161; 97166; 97530; 97535; A9270

== ENCOUNTER 2019-11-26 11:28 | Outpatient (CLI) | payer MEDICARE, OTHER, SELFPAY ==
[2019-11-26 12:15] LABS: Blood Urea Nitrogen 19 mg/dL (9-20); Calcium 8.7 mg/dL (8.4-10.2); Carbon Dioxide 28 mmol/L (22-30); Chloride 101 mmol/L (98-107); Estimated Glomerular Filt Rate > 60; Glucose 96 mg/dL (75-110); Potassium 3.4 mmol/L (3.4-5.0); Sodium 134 mmol/L (137-145)
== END 2019-11-26 11:29 | disposition home or self-care (01) ==
PROVIDERS: PCP Family Medicine; Referring Provider Family Medicine; Visit Provider Psychiatry & Neurology Neurology
DX: E87.6 Hypokalemia (principal)
CPT/HCPCS: 36415; 80048

== ENCOUNTER 2019-12-09 09:19 | Inpatient (IN) | payer MEDICARE, OTHER, SELFPAY ==
[2019-12-09] VITALS (46 sets, daily range): BP systolic 152–177; BP diastolic 76–100; PULSE 67–76; RESP 12–19; TEMP 36.2–36.7; O2SAT 95–100
--- NOTE | ~2019-12-09 | XR_ITS ---
EXAMINATION: XR lumbar spine 2-3V EXAM DATE: 12/09/2019 10:37 INDICATION: Low back pain. Fall. Injury. Initial encounter. TECHNIQUE: Lumber spine frontal, lateral, lateral L5-S1 projections for interpretation. There is no prior study for comparison. FINDINGS: There is moderate to severe lumbar spondylosis. Mild diffuse loss of lumbar vertebral body heights without acute compression fracture identified. There is mild to moderate lumbar dextroscolio sis. Advanced lower lumbar spondylosis. Sacrum, sacroiliac joints, sacral arcuate lines are intact. IMPRESSION: 1. Diffuse compression fractures without acute fracture line identified. 2. Advanced spondylosis. Reviewed, dictated and finalized at location B.
--- NOTE | ~2019-12-09 | XR_ITS ---
EXAMINATION: XR chest 1V EXAM DATE: 12/09/2019 10:37 INDICATION: Fall. TECHNIQUE: Portable AP frontal chest x-ray was obtained. Comparison is made to prior examination from 11/07/2019. FINDINGS: Mild cardiomegaly and pulmonary vascular congestion. Interval development of some bilateral reticular nodular opacities, could be mild pulmonary edema. Can't exclude developing infection. Ther e is no pneumothorax suspected. No pleural effusion. There are bony degenerative changes. Triple lead pacemaker/AICD device. IMPRESSION: Interval development of congestive changes, possible mild pulmonary edema. Developing in fectious process not excludable. Reviewed, dictated and finalized at location B. IMPRESSION: Interval development of congestive changes, possible mild pulmonar y edema. Developing infectious process not excludable.
--- NOTE | ~2019-12-09 | XR_ITS ---
EXAMINATION: XR pelvis 1-2V EXAM DATE: 12/09/2019 10:37 INDICATION: Initial encounter following injury, with pain of the pelvis. TECHNIQUE: Pelvis frontal projection(s) obtained and reviewed. There is no prior study for compariso n. FINDINGS: There are no acute pelvic fractures or dislocations identified. There is no subcutaneous g as. The soft tissue is unremarkable. There are no radiopaque foreign bodies. 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 Sacrum, sacroiliac joints, sacral arcuate estephanie es are intact. IMPRESSION: No acute osseous findings. Reviewed, dictated and finalized at location B. IMPRESSION: No acute osseous findings.
--- NOTE | ~2019-12-09 | CT_ITS ---
EXAMINATION: CT brain wo con, CT cervical spine wo con EXAM DATE: 12/09/2019 10:29 (accession [id number]), 12/09/2019 10:30 (accession [id number]) INDICATION: Fall, head injury. Increasing weakness. Slow response. TECHNIQUE: Spiral CT of the head was performed without contrast. Axial, coronal and sagittal images were reviewed. Spiral CT of the cervical spine was performed without contrast. Axial images were rev iewed. Coronal and sagittal reformatted images were also reviewed. The dose-length product (DLP) fo r this examination was 605.33 (accession [id number]), 249.14 (accession [id number]) mGy-cm. The exposure was tailored according to patient size, and iterative reconstruction (ASIR) was used as additional dose reduction technique. Comparison is made to prior examination from 11/07/2019. FINDINGS: HEAD CT: There is no acute intraparenchymal hemorrhage. No evidence of intraparenchymal brain mass l esion. No evidence of acute infarction. There is mild periventricular and subcortical hypodensity, n onspecific but probably related to small vessel ischemic disease. There is moderate prominence of t he sulci and ventricles related to cerebral atrophy. There is intracranial carotid arteriosclerosis . There is no mass effect or midline shift. There is no obstructive hydrocephalus suspected. There are no extra-axial collections. There are no acute calvarial fractures. Patient has had bilateral ocular lens surgery. Soft tissue is unremarkable. The visualized sinuses and mastoid air cells are well aerated. CERVICAL CT: Pacemaker/AICD device. Right-sided predominant facet arthropathy. Moderate lower cervica l uncovertebral joint arthropathy. There is no evidence of acute cervical fracture. The odontoid pro cess is intact. Pre-dens space is normal. Prevertebral soft tissue is normal. There are no soft ti ssue abnormalities identified. There is no disc space widening or traumatic vertebral body subluxati on suspected. Moderate to severe disc disease C3-4, C5-6 and 6-7. A detailed level by level evaluat ion of spondylosis can be added as addendum if requested. IMPRESSION: 1. No acute intracranial findings or cervical fracture. 2. Cervical spondylosis. 3. Age-related intracranial findings. Reviewed, dictated and finalized at location B. IMPRESSION: 1. No acute intracranial findings or cervical fracture. 2. Cervical spondylosis. 3. Age-related intracranial findings.
--- NOTE | 2019-12-09 09:28 | ECG_ITS ---
Measurements Intervals [place] Rate: 69 P: ID: 0 QRS: -76 QRSD: 185 T: 76 QT: 467 QTc: 503 Interpretive Statements ELECTRONIC VENTRICULAR PACEMAKER NO FURTHER INTERPRETATION IS POSSIBLE ATYPICAL ECG Electronically Signed On 12-09-2019 12:04:39 CDT by Levi Win D.O.
[2019-12-09 09:43] LABS: Add Urine Microscopic? YES; Appearance Urine Clear (Clear); Bilirubin Urine Negative (Negative); Blood Urine Negative (Negative); Color Urine Yellow (Yellow); Glucose Urine UA Negative (Negative); Ketones Urine Trace mg/dL (Negative); Leukocyte Esterase Ur Negative LEU/UL (Negative); Mucus Urine Rare /lpf; Nitrate Urine Negative (Negative); Protein Urine Negative (Negative); RBC Urine 0-2 /hpf (0-2); Specific Grav Ur 1.019 (1.001-1.035); Urobilinogen Urine Negative mg/dL (<2.0); WBC Urine 0-3 /hpf
[2019-12-09 10:05] LABS: Glucose Point of Care 95 (65-105)
[2019-12-09 10:11] LABS: Basophils Percent Auto 0.5 % (0.2-1.2); Eosinophils Percent Auto 0.5 % (0-4.4); Hematocrit 29.9 % (42.0-52.0); Hemoglobin 9.6 g/dL (14.0-18.0); Immature Granulocyte Absolute 0.02 K/mm3 (0.00-0.031); Immature Granulocyte Percent A 0.3 % (0-0.5); Lymphocytes Absolute Auto 0.44 K/mm3 (0.9-3.2); Lymphocytes Percent Auto 7.3 % (18.3-44.2); Mean Corpuscular HGB Conc 32.1 g/dl (32-36); Mean Corpuscular Hemoglobin 31.8 pg (26-34); Mean Platelet Volume 8.9 fl (7.4-10.4); Monocytes Absolute Auto 0.4 K/mm3 (0.1-0.6); Neutrophils Absolute Auto 5.1 K/mm3 (1.3-6.7); Neutrophils Percent Auto 84.4 % (45.5-73.1); Platelet Count Result 247 k/mm3 (150-375); Red Blood Count 3.02 M/mm3 (4.6-6.20); Red Cell Distribution Width 14.7 % (11.5-14.5)
[2019-12-09 10:17] LABS: Alveolar/Arterial O2 Gradient 74.9 mmHg; Base Excess ABG 0.8 mEq/l (+/-2.0); Carboxyhemoglobin 0.8 % THb (0-2.0); Fractional Inspired Oxygen 21 %; HCO3 ABG 25.1 mEq/l (22.0-26.0); Methemoglobin ABG 0.2 %THb (0-1.5); Oxygen Content ABG 7.2 %vol (16.0-22.0); Oxyhemoglobin 47.8 % THb (90.0-100.0); PCO2 ABG 38.9 mmHg (35.0-45.0); PO2 FiO2 Ratio Arterial Blood 1.34 %; Reduced Hemoglobin 51.2 %THb (0-5.0); Total Hemoglobin 10.7 g/dL (12.0-18.0); pH ABG 7.428 (7.350-7.450)
[2019-12-09 10:19] LABS: PO2 ABG 28.2 mmHg (80.0-100.0)
[2019-12-09 10:20] LABS: Modified Allen's Test Pass; Site Drawn LEFT RADIAL
[2019-12-09 10:20] LABS: INR 1.8; Prothrombin Time 20.5 Seconds (11.1-14.7)
[2019-12-09 10:21] LABS: Device ROOM AIR
[2019-12-09 10:21] LABS: Partial Thromboplastin Time 31.9 SECONDS (22.3-36.8)
[2019-12-09 10:22] LABS: Alanine Aminotransferase 17 U/L (4-50); Albumin Level 3.9 g/dL (3.5-5.1); Alkaline Phosphatase 71 U/L (38-126); Aspartate Amino Transferase 23 U/L (17-59); Bilirubin,Total 0.7 mg/dL (0.2-1.3); Blood Urea Nitrogen 24 mg/dL (9-20); Carbon Dioxide 25 mmol/L (22-30); Chloride 100 mmol/L (98-107); Estimated CRCL calculation 64 ml/min; Estimated Glomerular Filt Rate > 60; Glucose 109 mg/dL (75-110); Potassium 3.1 mmol/L (3.4-5.0); Sodium 133 mmol/L (137-145)
--- NOTE | 2019-12-09 11:18 | ED.GENADULT ---
HPI - General Adult General Chief complaint: Fall <KIP Welsh Last Filed: 12/09/19 11:20> Stated complaint: Falls <KIP Welsh Last Filed: 12/09/19 11:20> Time Seen by Provider: 12/09/19 09:37 <KIP Welsh Last Filed: 12/09/19 11:20> Source: patient <KIP Welsh Last Filed: 12/09/19 11:20> Mode of arrival: ambulatory <KIP Welsh Last Filed: 12/09/19 11:20> Limitations: no limitations <KIP Welsh Last Filed: 12/09/19 11:20> Related Data Home medications: Home Medications Medication Instructions Recorded Confirmed Restasis 1 drp OPHTHALMIC (EYE) BID 11/07/19 12/09/19 dorzolamide 1 drp OPHTHALMIC (EYE) TID 11/07/19 12/09/19 ferrous sulfate 325 mg PO DAILY 11/07/19 12/09/19 gabapentin 300 mg PO BID 11/07/19 12/09/19 latanoprost 1 drp OPHTHALMIC (EYE) HS 11/07/19 12/09/19 omeprazole 40 mg PO DAILY 11/07/19 12/09/19 Adult Probiotic 1 tablet PO DAILY 12/09/19 12/09/19 Caltrate + D3 Plus Minerals 600 tablet PO DAILY 12/09/19 12/09/19 Centrum Silver 1 tablet PO DAILY 12/09/19 12/09/19 acetaminophen 800 mg PO QID PRN 12/09/19 12/09/19 cholecalciferol (vitamin D3) 50 mcg PO DAILY 12/09/19 12/09/19 [Vitamin D3] valacyclovir 2,000 mg PO BID PRN 12/09/19 12/09/19 <KIP Welsh Last Filed: 12/09/19 11:20> Allergies/adverse reactions: Allergies Allergy/AdvReac Type Severity Reaction Status Date / Time clindamycin Allergy Rash Verified 11/07/19 13:29 <KIP Welsh Last Filed: 12/09/19 11:20> [facility] Past Medical History Medical History: Medical History Chronic anemia With history of blood transfusion. Essential hypertension Gastroesophageal reflux disease Glaucoma History of MRSA infection Hypertension Pacemaker Parkinsons Paroxysmal atrial fibrillation On Xarelto for stroke prophylaxis. Status post permanent pacemaker insertion. History of cardiac ablation x2. <Krishna Hubbard PA-C - Last Filed: 12/09/19 11:20> Surgical History Surgical History: Surgical History History of cardiac radiofrequency ablation History of cardiac radiofrequency ablation (RFA) History of permanent cardiac pacemaker placement History of total bilateral knee replacement <Krishna Hubbard PA-C - Last Filed: 12/09/19 11:20> Family History Family History: Family History Mother Cerebrovascular accident <KIP Welsh Last Filed: 12/09/19 11:20> Social History Social History: Social History Social History: Mr. Stanley lives with his in independent living at [place]. They have 2 children. He is originally from [place], [place] and is retired from the [employer]. He smoked remotely as young man and quit 1960. He drinks alcohol rarely on social occasions, and in moderation. No illicit substance use. He designates his Rosita as his surrogate decision maker and he wishes to be a full code. Smoking packs per day: 3 Smoking cigarettes per day: 60.0 Smoking status: Former smoker Alcohol intake: never Drinks per week: 1 Substance use: never Substance use type: does not use Other substance usage details: Gender identity (if verbalized by the patient): Male Spiritual care concerns: No <Krishna Hubbard PA-C - Last Filed: 12/09/19 11:20> Course Vital Signs Vital signs: Vital Signs Pulse Rate 70 12/09/19 09:25 Respiratory Rate 19 12/09/19 09:25 Blood Pressure 159/94 H 12/09/19 09:25 Pulse Oximetry 99 12/09/19 09:25 Temperature 97.8 F 12/12/19 14:00 Pulse Rate 70 12/12/19 14:00 Respiratory Rate 16 12/12/19 14:00 Blood Pressure 124/65 12/12/19 14:00 Pulse Oximetry 98 07/0
--- NOTE | 2019-12-09 11:18 | ED.FALL ---
HPI - Fall General Chief Complaint: Fall Stated Complaint: Falls Time Seen by Provider: 12/09/19 09:37 Source: patient Mode of arrival: ambulatory History of Present Illness HPI Narrative: This patient is an 84 year old male with history of Parkinson's disease who present for evaluation of progressive weakness. PAtient has been having frequent falls . He last fell yesterday and he is complaining about low back pain. His states he has had low back for years. His was unable to get him off the toilet today so EMS was called. Patient denies LOC , hitting his head or having a headache. He states his thinks he hit his head yesterday. HE denies chest pain, sob, nausea, vomiting or abdominal pain . His states that he has fallen 3 times since leaving Rehab 2 weeks ago. She states he is too weak to stay home. Related Data Home Medications Medication Instructions Recorded Confirmed Restasis 1 drp OPHTHALMIC (EYE) BID 11/07/19 11/09/19 cholecalciferol (vitamin D3) 50 mcg PO DAILY 11/07/19 11/09/19 dorzolamide 1 drp OPHTHALMIC (EYE) TID 11/07/19 11/09/19 ferrous sulfate 325 mg PO DAILY 11/07/19 11/09/19 gabapentin 300 mg PO BID 11/07/19 11/09/19 latanoprost 1 drp OPHTHALMIC (EYE) HS 11/07/19 11/09/19 omeprazole 40 mg PO DAILY 11/07/19 11/09/19 Adult Probiotic 12/09/19 Adults Multivitamin 12/09/19 Allergies Allergy/AdvReac Type Severity Reaction Status Date / Time clindamycin Allergy Rash Verified 11/07/19 13:29 Review of Systems Review of Systems: All systems reviewed & are unremarkable except as noted in HPI and below Constitutional: Constitutional: Denies chills, Denies fever(s) and Reports weakness Cardiovascular: Cardiovascular: Denies chest pain Respiratory: Respiratory: Reports cough and Denies dyspnea Gastrointestinal: Gastrointestinal: Denies abdominal pain, Denies diarrhea, Denies nausea and Denies vomiting Genitourinary: Genitourinary: Reports no additional male genitourinary complaints Musculoskeletal: Musculoskeletal: Reports back pain (chronic) Neurologic: Reports headache(s) PMF Past Medical History Medical History Chronic anemia With history of blood transfusion. Essential hypertension Gastroesophageal reflux disease Glaucoma History of MRSA infection Hypertension Pacemaker Parkinsons Paroxysmal atrial fibrillation On Xarelto for stroke prophylaxis. Status post permanent pacemaker insertion. History of cardiac ablation x2. Surgical History Surgical History History of cardiac radiofrequency ablation History of cardiac radiofrequency ablation (RFA) History of permanent cardiac pacemaker placement History of total bilateral knee replacement Social History Social History Social History: Mr. Stanley lives with his in independent living at [place]. They have 2 children. He is originally from [place], [place] and is retired from the [employer]. He smoked remotely as young man and quit 1960. He drinks alcohol rarely on social occasions, and in moderation. No illicit substance use. He designates his Rosita as his surrogate decision maker and he wishes to be a full code. Smoking packs per day: 3 Smoking cigarettes per day: 60.0 Smoking status: Former smoker Alcohol intake: never Drinks per week: 1 Substance use: never Substance use type: does not use Other substance usage details: Gender identity (if verbalized by the patient): Male Spiritual care concerns: No Exam Const: General: no acute distress and alert Orientation/consciousness: patient oriented x3 HENMT: Head: normocephalic and atraumatic Face and sinus: face symmetric Mouth: Yes lip normal Throat: uvula midline Eyes: Pupils: Equal, round and reactive pupils present Chest: Chest palpa
[2019-12-09 11:54] LABS: NT Pro B Type Natriuretic Pept 2330 PG/ML (5-100); Troponin I 0.014 ng/mL (0.000-0.034)
[2019-12-09] MEDS: POTASSIUM CHLORIDE 20 MEQ PACKET (FOR LIQUID) 40 MEQ PO (13:35)
--- NOTE | 2019-12-09 18:06 | PC.NURSE ---
This patient, Winston Stanley, was admitted to 3 Med Surg Room 323-01 on 12/09/19 @ 8924. Patient/family oriented to hospital policies and general routines including ID bracelet, bed and alarms, visiting hours, pain management, procedures, bathroom and other care routines, personal items, smoking policy, room service/diet, and visiting hours. Valuables list has been completed. Information on how to activate the Rapid Response Team has been discussed. Patient/Family are encouraged to report perceived risks to care and to ask questions if they do not understand what they are told or what they should do.
[2019-12-09] MEDS: RIVAROXABAN 20 MG TABLET PO (19:00)
--- NOTE | 2019-12-09 20:26 | PM.IMHP ---
H&P: HPI History of Present Illness Chief complaint: weakness/dificulty walking/pulmonary edema Narrative: This is an 84 year old male with known advanced Parkinson's disease, and chronically anticoagulated on Xarelto for paroxysmal atrial fibrillation who presented to the hospital today with increased weakness and frequent falls. The patient was brought to the hospital today after his could not get him up off the toilet. The patient was just recently in Rehab 2 weeks ago and his had reported that he fell 3 times since he has been at home. Routine labs were obtained which were unremarkable today in the ER. Brain CT did not demonstrate any acute findings. The patient was admitted to the hospital for his progressive weakness. On my encounter with the patient tonight he is very slow to answer my questions and very slow to initiate any movements. He appears to be very rigid. He claims he is taking all his medications as prescribed. On further questioning he agrees that he is more tired and weak than normal. He denies any headache, fevers, cough, shortness of breath, chest pain, abdominal pain, dysuria, hematuria, or worsening LE swelling. The patient was admitted to the hospital as his cannot care for him. Review of Systems Review of Systems: All systems reviewed & are unremarkable except as noted in HPI and below PMFSH Past Medical History Medical History Chronic anemia With history of blood transfusion. Essential hypertension Gastroesophageal reflux disease Glaucoma History of MRSA infection Hypertension Pacemaker Parkinsons Paroxysmal atrial fibrillation On Xarelto for stroke prophylaxis. Status post permanent pacemaker insertion. History of cardiac ablation x2. Surgical History Surgical History History of cardiac radiofrequency ablation History of cardiac radiofrequency ablation (RFA) History of permanent cardiac pacemaker placement History of total bilateral knee replacement Family History Family History Mother Cerebrovascular accident Social History Social History Social History: Mr. Stanley lives with his in independent living at [place]. They have 2 children. He is originally from [place], [place] and is retired from the [employer]. He smoked remotely as young man and quit 1960. He drinks alcohol rarely on social occasions, and in moderation. No illicit substance use. He designates his Rosita as his surrogate decision maker and he wishes to be a full code. Smoking packs per day: 3 Smoking cigarettes per day: 60.0 Smoking status: Former smoker Alcohol intake: never Drinks per week: 1 Substance use: never Substance use type: does not use Other substance usage details: Gender identity (if verbalized by the patient): Male Spiritual care concerns: No Meds Home Medications and Allergies Home Medications Medication Instructions Recorded Confirmed Type Restasis 1 drp OPHTHALMIC (EYE) BID 11/07/19 12/09/19 History dorzolamide 1 drp OPHTHALMIC (EYE) TID 11/07/19 12/09/19 History ferrous sulfate 325 mg PO DAILY 11/07/19 12/09/19 History gabapentin 300 mg PO BID 11/07/19 12/09/19 History latanoprost 1 drp OPHTHALMIC (EYE) HS 11/07/19 12/09/19 History omeprazole 40 mg PO DAILY 11/07/19 12/09/19 History carbidopa-levodopa [Sinemet] 2 tablet PO TIDWM #0 tablet 11/19/19 12/09/19 Rx rivaroxaban [Xarelto] 20 mg PO DAILY@1700 #0 tablet 11/19/19 12/09/19 Rx Adult Probiotic 1 tablet PO DAILY 12/09/19 12/09/19 History Ca carb-D3-mag un-lab-hunc-Zn 600 tablet PO DAILY 12/09/19 12/09/19 History [Caltrate + D3 Plus Minerals] acetaminophen 800 mg PO QID PRN 12/09/19 12/09/19 History cholecalciferol (vitamin D3) 50 mcg PO DAILY 12/09/19 12/09/19 Histor
[2019-12-09] MEDS: LATANOPROST 0.005% OP SOLN 2.5 ML BTL 1 DROP EACH EYE (23:00)
[2019-12-09] MEDS: GABAPENTIN 300 MG CAPSULE PO (23:00)
[2019-12-09] MEDS: CARBIDOPA/LEVODOPA 25/100 MG TABLET 2 TABLET PO (23:00)
[2019-12-10] VITALS (8 sets, daily range): BP systolic 144–163; BP diastolic 81–92; PULSE 69–74; RESP 16–18; TEMP 36.3–36.4; O2SAT 98–100
[2019-12-10] MEDS: DORZOLAMIDE HCL 2% OPHTH DROPS 1 DROP EACH EYE ×4 (05:40→21:13)
[2019-12-10 07:07] LABS: Basophils Percent Auto 0.6 % (0.2-1.2); Eosinophils Absolute Auto 0.2 K/mm3 (0-0.3); Eosinophils Percent Auto 4.7 % (0-4.4); Hematocrit 28.1 % (42.0-52.0); Hemoglobin 9.1 g/dL (14.0-18.0); Immature Granulocyte Absolute 0.01 K/mm3 (0.00-0.031); Immature Granulocyte Percent A 0.2 % (0-0.5); Lymphocytes Absolute Auto 0.67 K/mm3 (0.9-3.2); Lymphocytes Percent Auto 14.4 % (18.3-44.2); Mean Corpuscular HGB Conc 32.4 g/dl (32-36); Mean Corpuscular Hemoglobin 31.8 pg (26-34); Mean Corpuscular Volume 98.3 fl (80-100); Mean Platelet Volume 9.3 fl (7.4-10.4); Monocytes Absolute Auto 0.4 K/mm3 (0.1-0.6); Monocytes Percent Auto 8.2 % (2.6-8.5); Neutrophils Absolute Auto 3.3 K/mm3 (1.3-6.7); Neutrophils Percent Auto 71.9 % (45.5-73.1); Platelet Count Result 228 k/mm3 (150-375); Red Blood Count 2.86 M/mm3 (4.6-6.20); Red Cell Distribution Width 14.8 % (11.5-14.5); White Blood Count 4.6 K/mm3 (4.5-10.0)
[2019-12-10 07:22] LABS: Blood Urea Nitrogen 21 mg/dL (9-20); Calcium 8.1 mg/dL (8.4-10.2); Carbon Dioxide 27 mmol/L (22-30); Chloride 100 mmol/L (98-107); Estimated CRCL calculation 72 ml/min; Estimated Glomerular Filt Rate > 60; Glucose 92 mg/dL (75-110); Potassium 3.1 mmol/L (3.4-5.0); Sodium 132 mmol/L (137-145)
[2019-12-10] MEDS: CARBIDOPA/LEVODOPA 25/100 MG TABLET 2 TABLET PO ×3 (09:56→18:34)
[2019-12-10] MEDS: FERROUS SULFATE 324 MG TABLET PO (09:57)
[2019-12-10] MEDS: CHOLECALCIFEROL 1,000 UNIT TABLET 1000 UNITS PO (09:57)
[2019-12-10] MEDS: ACIDOPHILUS/BULGARICUS CHEWABLE TABLET 1 TABLET PO (09:57)
[2019-12-10] MEDS: GABAPENTIN 300 MG CAPSULE PO ×2 (09:57→21:08)
[2019-12-10] MEDS: PANTOPRAZOLE 40 MG TABLET PO (09:58)
[2019-12-10] MEDS: MULTIVITAMINS /C LUTEIN (CENTRUM SILVER) TABLET *BKC 1 TAB PO (09:58)
--- NOTE | 2019-12-10 12:49 | PM.IMPN ---
Progress Note: A&P Assessment and Plan (1) Generalized weakness: Code(s): R53.1 - Weakness Status: Acute Assessment and Plan: Likely due to Parkinsons disease. PT/OT evaluation when appropriate. The patient will likely need SNF placement. (2) Frequent falls: Code(s): R29.6 - Repeated falls Status: Acute Assessment and Plan: Likely secondary to Parkinson's disease. (3) Parkinsons: Code(s): G20 - Parkinson's disease Status: Chronic Assessment and Plan: Neurology consultation to adjusting or adding further medications for Parkinson's disease. (4) Acute hypokalemia: Code(s): E87.6 - Hypokalemia Status: Acute Assessment and Plan: Mild hypokalemia - monitor potassium levewls in hospital (5) Essential hypertension: Code(s): I10 - Essential (primary) hypertension Status: Acute Assessment and Plan: Blood pressure has been elevated. Monitor blood pressure. PRN hydralazine w/ parameters. (6) Paroxysmal atrial fibrillation: Code(s): I48.0 - Paroxysmal atrial fibrillation Status: Acute Assessment and Plan: Currently rate controlled in a paced rhythm. Continue Xarelto. (7) Chronic anemia: Code(s): D64.9 - Anemia, unspecified Status: Chronic Assessment and Plan: No signs of acute blood loss. Likely anemia of chronic disease. Monitor H/H, transfuse prn. (8) Glaucoma: Qualifiers: Glaucoma type: unspecified Laterality: unspecified laterality Qualified Code(s): H40.9 - Unspecified glaucoma Code(s): H40.9 - Unspecified glaucoma Status: Chronic Assessment and Plan: Continue home glaucoma eye drops. (9) Gastroesophageal reflux disease: Qualifiers: Esophagitis presence: esophagitis presence not specified Qualified Code(s): K21.9 - Gastro-esophageal reflux disease without esophagitis Code(s): K21.9 - Gastro-esophageal reflux disease without esophagitis Status: Chronic Assessment and Plan: Continue PPI therapy. (10) Hyponatremia: Code(s): E87.1 - Hypo-osmolality and hyponatremia Status: Acute Assessment and Plan: Pt to added extra salt to his food. sodium is 131 today continue to monitor Na. Subjective Date/time seen: 12/10/19 12:49 Interval history: 84 year old male with known advanced Parkinson's disease, and chronically anticoagulated on Xarelto for paroxysmal atrial fibrillation who presented to the hospital today with increased weakness and frequent falls. Pt Ct head is negative,labs relatively good apart from mildly low sodium and potassium. Pt is slowed down with his movements and speech.otherwise no other compliants. pt does not complains of cough, fever or wheezes. just released from rehab two weeks ago. awaiting neurology recommendations for Parkinson flare. Review of Systems Review of Systems: All systems reviewed & are unremarkable except as noted in HPI and below Neurologic: Reports Abnormal speech present Comments: slow movements Exam Const: General: cooperative, alert, awake, ill appearing chronically and tired appearing Nutritional Appearance: thin Orientation/consciousness: patient oriented x3 Resp: Effort & Inspection: normal respiratory effort Auscultation: clear to auscultation bilaterally Cardio: Rate: regular rate Rhythm: regular rhythm Heart sounds: no murmurs GI: Inspection: normal to inspection Auscultation: normal bowel sounds Skin: General skin exam: normal color and no rashes or lesions noted Neuro: General: patient oriented x3 Cranial nerves: Yes CN's II-XII intact bilaterally and Yes Equal, round and reactive pupils present Speech: Other speech findings present (Neuro) (Slow to speak or answer questions) Motor exam (neuro): no tremors, Abnormal muscle tone present (Diffuse rigidity+++ of upper and lower extremities++ ) and Other motor observations presen
--- NOTE | 2019-12-10 14:09 | WPDNEURCNPN ---
Assessment and Plan Assessment and plan (1) Hyponatremia: Code(s): E87.1 - Hypo-osmolality and hyponatremia Status: Acute (2) Gastroesophageal reflux disease: Qualifiers: Esophagitis presence: esophagitis presence not specified Qualified Code(s): K21.9 - Gastro-esophageal reflux disease without esophagitis Code(s): K21.9 - Gastro-esophageal reflux disease without esophagitis Status: Chronic (3) Glaucoma: Qualifiers: Glaucoma type: unspecified Laterality: unspecified laterality Qualified Code(s): H40.9 - Unspecified glaucoma Code(s): H40.9 - Unspecified glaucoma Status: Chronic (4) Hypokalemia: Code(s): E87.6 - Hypokalemia Status: Acute (5) Generalized weakness: Code(s): R53.1 - Weakness Status: Acute (6) Pulmonary edema: Code(s): J81.1 - Chronic pulmonary edema Status: Acute (7) History of cardiac radiofrequency ablation (RFA): Code(s): Z98.890 - Other specified postprocedural states Status: Acute (8) Pacemaker: Code(s): Z95.0 - Presence of cardiac pacemaker Status: Acute (9) Paroxysmal atrial fibrillation: Code(s): I48.0 - Paroxysmal atrial fibrillation Status: Acute (10) Parkinsons: Code(s): G20 - Parkinson's disease Status: Chronic (11) Chronic anemia: Code(s): D64.9 - Anemia, unspecified Status: Chronic (12) Essential hypertension: Code(s): I10 - Essential (primary) hypertension Status: Acute (13) Frequent falls: Code(s): R29.6 - Repeated falls Status: Acute Additional Plan at this point I will continue the present management and let him start eating better and see what we can offer 1 of the option would be to add another medication like repair in all to his regimen and see what different does not make at least for right now till he sees his neurologist Consult date: 12/10/19 Time Seen: 13:30 HPI: Winston Stanley is a 84 year old male who is known to me from most recent hospitalization not too long ago on the acute rehab floor where he is admitted with the advanced Parkinson's disease he was brought in because of the generalized weakness inability to walk and the probably not able to eat he does have established Neurology from the [facility] with him probably had an appointment in the recent past or may not have been able to keep his appointment as it is difficult to assess his faculties not only because of monotonous slow low volume soliz but also mild cognitive to moderate cognitive dysfunction however he denies any headache nausea vomiting chest pain shortness of breath fever chills sore throat Review of Systems Review of Systems: All systems reviewed & are unremarkable except as noted in HPI and below PMFSH Past Medical History Medical History Chronic anemia With history of blood transfusion. Essential hypertension Gastroesophageal reflux disease Glaucoma History of MRSA infection Hypertension Pacemaker Parkinsons Paroxysmal atrial fibrillation On Xarelto for stroke prophylaxis. Status post permanent pacemaker insertion. History of cardiac ablation x2. Surgical History Surgical History History of cardiac radiofrequency ablation History of cardiac radiofrequency ablation (RFA) History of permanent cardiac pacemaker placement History of total bilateral knee replacement Family History Family History Mother Cerebrovascular accident Social History Social History Social History: Mr. Stanley lives with his in independent living at [place]. They have 2 children. He is originally from [place], [place] and is retired from the [employer]. He smoked remotely as
[2019-12-10] MEDS: rOPINIRole HCL 0.125 MG TABLET PO ×2 (14:18→21:07)
[2019-12-10] MEDS: POTASSIUM CHLORIDE 20 MEQ PACKET (FOR LIQUID) PO (17:40)
[2019-12-10] MEDS: RIVAROXABAN 20 MG TABLET PO (17:40)
[2019-12-10] MEDS: LATANOPROST 0.005% OP SOLN 2.5 ML BTL 1 DROP EACH EYE (21:11)
[2019-12-11] MEDS: DORZOLAMIDE HCL 2% OPHTH DROPS 1 DROP EACH EYE ×2 (05:57→17:54)
[2019-12-11 06:00] VITALS: BP 149/87; PULSE 70; RESP 18; TEMP 36.6; O2SAT 100
[2019-12-11] MEDS: rOPINIRole HCL 0.125 MG TABLET PO ×3 (06:00→23:08)
[2019-12-11 08:20] LABS: Blood Urea Nitrogen 19 mg/dL (9-20); Calcium 8.1 mg/dL (8.4-10.2); Carbon Dioxide 25 mmol/L (22-30); Chloride 100 mmol/L (98-107); Estimated CRCL calculation 81 ml/min; Estimated Glomerular Filt Rate > 60; Glucose 102 mg/dL (75-110); Potassium 3.6 mmol/L (3.4-5.0); Sodium 131 mmol/L (137-145)
[2019-12-11] MEDS: GABAPENTIN 300 MG CAPSULE PO ×2 (09:19→21:26)
[2019-12-11] MEDS: PANTOPRAZOLE 40 MG TABLET PO (09:19)
[2019-12-11] MEDS: FERROUS SULFATE 324 MG TABLET PO (09:19)
[2019-12-11] MEDS: CHOLECALCIFEROL 1,000 UNIT TABLET 1000 UNITS PO (09:19)
[2019-12-11] MEDS: CARBIDOPA/LEVODOPA 25/100 MG TABLET 2 TABLET PO ×3 (09:19→17:55)
[2019-12-11] MEDS: POTASSIUM CHLORIDE 20 MEQ PACKET (FOR LIQUID) PO ×2 (09:19→17:55)
[2019-12-11] MEDS: MULTIVITAMINS /C LUTEIN (CENTRUM SILVER) TABLET *BKC 1 TAB PO (09:20)
[2019-12-11] MEDS: ACIDOPHILUS/BULGARICUS CHEWABLE TABLET 1 TABLET PO (09:20)
--- NOTE | 2019-12-11 12:20 | WPDNEUROPN ---
Progress Note: A&P Assessment and Plan (1) Hyponatremia: Code(s): E87.1 - Hypo-osmolality and hyponatremia Status: Acute (2) Gastroesophageal reflux disease: Qualifiers: Esophagitis presence: esophagitis presence not specified Qualified Code(s): K21.9 - Gastro-esophageal reflux disease without esophagitis Code(s): K21.9 - Gastro-esophageal reflux disease without esophagitis Status: Chronic (3) Glaucoma: Qualifiers: Glaucoma type: unspecified Laterality: unspecified laterality Qualified Code(s): H40.9 - Unspecified glaucoma Code(s): H40.9 - Unspecified glaucoma Status: Chronic (4) Hypokalemia: Code(s): E87.6 - Hypokalemia Status: Acute (5) Generalized weakness: Code(s): R53.1 - Weakness Status: Acute (6) Pulmonary edema: Code(s): J81.1 - Chronic pulmonary edema Status: Acute (7) History of cardiac radiofrequency ablation (RFA): Code(s): Z98.890 - Other specified postprocedural states Status: Acute (8) Pacemaker: Code(s): Z95.0 - Presence of cardiac pacemaker Status: Acute (9) Paroxysmal atrial fibrillation: Code(s): I48.0 - Paroxysmal atrial fibrillation Status: Acute (10) Parkinsons: Code(s): G20 - Parkinson's disease Status: Chronic (11) Chronic anemia: Code(s): D64.9 - Anemia, unspecified Status: Chronic (12) Essential hypertension: Code(s): I10 - Essential (primary) hypertension Status: Acute (13) Acute hypokalemia: Code(s): E87.6 - Hypokalemia Status: Acute (14) Frequent falls: Code(s): R29.6 - Repeated falls Status: Acute Additional Plan looks good as far as parkisonism is concerned will discuss with him further Review of Systems Review of Systems: All systems reviewed & are unremarkable except as noted in HPI and below Exam Const: General: cooperative, healthy appearing, comfortable and no acute distress Nutritional Appearance: average body habitus Orientation/consciousness: oriented to person, oriented to place and oriented to time Limitations: no limitations HENMT: Head: normal to inspection Ears: hearing grossly normal bilaterally General nose exam: Normal external nose present and No nasal discharge present Face and sinus: normal facial exam Mouth: Yes Normal oral and palatal mucosa present Eyes: General: appearance normal, both eyes and all related structures Neck: Neck: full ROM Resp: Effort & Inspection: normal respiratory effort Auscultation: clear to auscultation bilaterally Cardio: Rate: regular rate Rhythm: regular rhythm GI: Auscultation: normal bowel sounds Skin: General skin exam: no rashes or lesions noted Neuro: General: patient oriented x3 and moves all extremities Cranial nerves: Yes CN's II-XII intact bilaterally Cognition (Neuro): normal cognition Psych: Appearance: grossly normal Objective Data Vital Signs Vital Signs: Vital Signs - 24 hr 12/10/19 14:00 12/10/19 16:00 12/10/19 22:00 Temperature 36.3 C L 36.4 C L Pulse Rate 74 70 70 Respiratory Rate 18 18 Blood Pressure 155/83 H 163/92 H Pulse Oximetry 100 100 12/11/19 06:00 Temperature 36.6 C Pulse Rate 70 Respiratory Rate 18 Blood Pressure 149/87 H Pulse Oximetry 100 Intake/Output Intake/Output: Intake & Output 12/08/19 12/09/19 12/10/19 12/11/19 23:59 23:59 23:59 23:59 Intake Total 250 1090 510 Output Total 300 400 525 Balance -50 690 -15 Meds/Results Medications: Active Medications Generic Name Dose Route Start Last Admin Trade Name Daleq PRN Reason Stop Dose Admin Acetaminophen 650 mg 12/10/19 05:46 Tylenol Tablet PO QID PRN Pain 1-3 or Fever Calcium Carbonate 500 mg 12/10/19 09:00 12/11/19 09:20 Os-Augie 500 +D Tablet PO 01/09/20 09:01 500 mg DAILY PATRIZIA Administration Carbidopa/Levodopa 2 tablet 12/09/19 20:55 12/11/19 09:19
[2019-12-11] MEDS: ACETAMINOPHEN 325 MG TABLET 650 MG PO (12:32)
[2019-12-11 14:00] VITALS: BP 98/60; PULSE 71; RESP 16; TEMP 36.2; O2SAT 94
--- NOTE | 2019-12-11 16:30 | PM.IMPN ---
Progress Note: A&P Assessment and Plan (1) Generalized weakness: Code(s): R53.1 - Weakness Status: Acute Assessment and Plan: Likely due to Parkinsons disease. PT/OT evaluation when appropriate. The patient will likely need SNF placement. (2) Frequent falls: Code(s): R29.6 - Repeated falls Status: Acute Assessment and Plan: Likely secondary to Parkinson's disease. (3) Parkinsons: Code(s): G20 - Parkinson's disease Status: Chronic Assessment and Plan: Neurology consultation to adjusting or adding further medications for Parkinson's disease. (4) Acute hypokalemia: Code(s): E87.6 - Hypokalemia Status: Resolved (5) Essential hypertension: Code(s): I10 - Essential (primary) hypertension Status: Acute Assessment and Plan: Blood pressure has been elevated. Monitor blood pressure. PRN hydralazine w/ parameters. (6) Paroxysmal atrial fibrillation: Code(s): I48.0 - Paroxysmal atrial fibrillation Status: Acute Assessment and Plan: Currently rate controlled in a paced rhythm. Continue Xarelto. (7) Chronic anemia: Code(s): D64.9 - Anemia, unspecified Status: Chronic Assessment and Plan: No signs of acute blood loss. Likely anemia of chronic disease. Monitor H/H, transfuse prn. (8) Glaucoma: Qualifiers: Glaucoma type: unspecified Laterality: unspecified laterality Qualified Code(s): H40.9 - Unspecified glaucoma Code(s): H40.9 - Unspecified glaucoma Status: Chronic Assessment and Plan: Continue home glaucoma eye drops. (9) Gastroesophageal reflux disease: Qualifiers: Esophagitis presence: esophagitis presence not specified Qualified Code(s): K21.9 - Gastro-esophageal reflux disease without esophagitis Code(s): K21.9 - Gastro-esophageal reflux disease without esophagitis Status: Chronic Assessment and Plan: Continue PPI therapy. (10) Hyponatremia: Code(s): E87.1 - Hypo-osmolality and hyponatremia Status: Acute Assessment and Plan: Pt to added extra salt to his food. continue to monitor Na. Additional Plan Subjective Date/time seen: 12/11/19 16:30 Interval history: 84 year old male with known advanced Parkinson's disease, and chronically anticoagulated on Xarelto for paroxysmal atrial fibrillation who presented to the hospital today with increased weakness and frequent falls. Pt Ct head is negative,labs relatively good apart from mildly low sodium and potassium. Pt is slowed down with his movements and speech.otherwise no other compliants. pt does not complains of cough, fever or wheezes. just released from rehab two weeks ago. awaiting neurology recommendations for Parkinson flare. Review of Systems Review of Systems: ROS unobtainable: Yes other (weak, tired immobile ) Exam Const: General: ill appearing chronically and tired appearing Nutritional Appearance: thin Orientation/consciousness: patient oriented x3 Cardio: Rate: regular rate Rhythm: regular rhythm Heart sounds: no murmurs GI: Inspection: normal to inspection Auscultation: normal bowel sounds Skin: General skin exam: normal color and no rashes or lesions noted Neuro: General: patient oriented x3 Cranial nerves: Yes CN's II-XII intact bilaterally and Yes Equal, round and reactive pupils present Speech: Abnormal speech present and Other speech findings present (Neuro) (Slow to speak or answer questions) Motor exam (neuro): no tremors, Abnormal muscle tone present (Diffuse rigidity+++ of upper and lower extremities++ ) and Other motor observations present (Very slow to initiate movement+) Sensory Exam: normal sensation Extrem: General: normal to inspection and no edema Other: Rigidity of limbs legs worse than arms frozen face muffled soft voice Objective Data Vital Signs Vital Signs: Vital Signs - 24 hr 12/10/19
[2019-12-11 17:28] LABS: SARS-CoV-2 RNA PCR Negative
[2019-12-11] MEDS: RIVAROXABAN 20 MG TABLET PO (17:54)
[2019-12-11] MEDS: LATANOPROST 0.005% OP SOLN 2.5 ML BTL 1 DROP EACH EYE (21:33)
[2019-12-11 22:00] VITALS: BP 153/90; PULSE 70; RESP 18; TEMP 36.4; O2SAT 99
[2019-12-12 06:00] VITALS: BP 141/81; PULSE 72; RESP 18; TEMP 36.6; O2SAT 99
[2019-12-12 06:16] LABS: Basophils Percent Auto 0.5 % (0.2-1.2); Eosinophils Absolute Auto 0.4 K/mm3 (0-0.3); Eosinophils Percent Auto 7.8 % (0-4.4); Hematocrit 30.7 % (42.0-52.0); Hemoglobin 9.9 g/dL (14.0-18.0); Immature Granulocyte Absolute 0.02 K/mm3 (0.00-0.031); Immature Granulocyte Percent A 0.4 % (0-0.5); Lymphocytes Absolute Auto 0.63 K/mm3 (0.9-3.2); Lymphocytes Percent Auto 11.2 % (18.3-44.2); Mean Corpuscular HGB Conc 32.2 g/dl (32-36); Mean Corpuscular Hemoglobin 31.6 pg (26-34); Mean Corpuscular Volume 98.1 fl (80-100); Mean Platelet Volume 9.5 fl (7.4-10.4); Monocytes Absolute Auto 0.5 K/mm3 (0.1-0.6); Monocytes Percent Auto 8.6 % (2.6-8.5); Neutrophils Percent Auto 71.5 % (45.5-73.1); Platelet Count Result 244 k/mm3 (150-375); Red Blood Count 3.13 M/mm3 (4.6-6.20); Red Cell Distribution Width 14.3 % (11.5-14.5); White Blood Count 5.6 K/mm3 (4.5-10.0)
[2019-12-12 06:28] LABS: Blood Urea Nitrogen 20 mg/dL (9-20); Calcium 8.4 mg/dL (8.4-10.2); Carbon Dioxide 25 mmol/L (22-30); Chloride 101 mmol/L (98-107); Estimated CRCL calculation 72 ml/min; Estimated Glomerular Filt Rate > 60; Glucose 104 mg/dL (75-110); Potassium 3.7 mmol/L (3.4-5.0); Sodium 132 mmol/L (137-145)
[2019-12-12] MEDS: rOPINIRole HCL 0.125 MG TABLET PO ×2 (06:31→14:02)
[2019-12-12] MEDS: DORZOLAMIDE HCL 2% OPHTH DROPS 1 DROP EACH EYE ×2 (06:38→14:02)
[2019-12-12 08:00] VITALS: PULSE 72; RESP 18; O2SAT 99
[2019-12-12] MEDS: FERROUS SULFATE 324 MG TABLET PO (09:03)
[2019-12-12] MEDS: GABAPENTIN 300 MG CAPSULE PO (09:04)
[2019-12-12] MEDS: ACIDOPHILUS/BULGARICUS CHEWABLE TABLET 1 TABLET PO (09:04)
[2019-12-12] MEDS: CARBIDOPA/LEVODOPA 25/100 MG TABLET 2 TABLET PO (09:04)
[2019-12-12] MEDS: CHOLECALCIFEROL 1,000 UNIT TABLET 1000 UNITS PO (09:04)
[2019-12-12] MEDS: PANTOPRAZOLE 40 MG TABLET PO (09:04)
[2019-12-12] MEDS: MULTIVITAMINS /C LUTEIN (CENTRUM SILVER) TABLET *BKC 1 TAB PO (09:06)
[2019-12-12] MEDS: POTASSIUM CHLORIDE 20 MEQ PACKET (FOR LIQUID) PO (09:06)
--- NOTE | 2019-12-12 13:22 | WPDNEUROPN ---
Progress Note: A&P Assessment and Plan (1) Hyponatremia: Code(s): E87.1 - Hypo-osmolality and hyponatremia Status: Acute (2) Gastroesophageal reflux disease: Qualifiers: Esophagitis presence: esophagitis presence not specified Qualified Code(s): K21.9 - Gastro-esophageal reflux disease without esophagitis Code(s): K21.9 - Gastro-esophageal reflux disease without esophagitis Status: Chronic (3) Glaucoma: Qualifiers: Glaucoma type: unspecified Laterality: unspecified laterality Qualified Code(s): H40.9 - Unspecified glaucoma Code(s): H40.9 - Unspecified glaucoma Status: Chronic (4) Hypokalemia: Code(s): E87.6 - Hypokalemia Status: Acute (5) Generalized weakness: Code(s): R53.1 - Weakness Status: Acute (6) Pulmonary edema: Code(s): J81.1 - Chronic pulmonary edema Status: Acute (7) History of cardiac radiofrequency ablation (RFA): Code(s): Z98.890 - Other specified postprocedural states Status: Acute (8) Pacemaker: Code(s): Z95.0 - Presence of cardiac pacemaker Status: Acute (9) Paroxysmal atrial fibrillation: Code(s): I48.0 - Paroxysmal atrial fibrillation Status: Acute (10) Parkinsons: Code(s): G20 - Parkinson's disease Status: Chronic (11) Chronic anemia: Code(s): D64.9 - Anemia, unspecified Status: Chronic (12) Essential hypertension: Code(s): I10 - Essential (primary) hypertension Status: Acute (13) Acute hypokalemia: Code(s): E87.6 - Hypokalemia Status: Resolved (14) Frequent falls: Code(s): R29.6 - Repeated falls Status: Acute Additional Plan stable will try increasing levodopa Review of Systems Review of Systems: All systems reviewed & are unremarkable except as noted in HPI and below Exam Const: General: cooperative, comfortable and no acute distress Orientation/consciousness: oriented to person, oriented to place, oriented to time and patient oriented x3 HENMT: Head: normal to inspection General nose exam: Normal external nose present and No nasal discharge present Face and sinus: normal facial exam Mouth: Yes Normal oral and palatal mucosa present Eyes: Alignment and Position: alignment normal Periorbital: periorbital findings normal Eyelids: eyelids normal Conjunctivae: conjunctivae normal Sclera: sclerae normal Cornea: corneas normal Pupils: Equal, round and reactive pupils present EOM: EOMs intact bilaterally Neck: Neck: full ROM and no lymphadenopathy Resp: Effort & Inspection: normal respiratory effort Auscultation: clear to auscultation bilaterally Cardio: Rate: regular rate Rhythm: regular rhythm GI: Auscultation: normal bowel sounds Skin: General skin exam: normal color and no rashes or lesions noted Neuro: General: patient oriented x3 and moves all extremities Cranial nerves: Yes CN's II-XII intact bilaterally, Yes Equal, round and reactive pupils present and Yes Nystagmus not present Cognition (Neuro): normal cognition Speech: Abnormal speech present Motor exam (neuro): Abnormal motor strength present Psych: Appearance: grossly normal Objective Data Vital Signs Vital Signs: Vital Signs - 24 hr 12/11/19 14:00 12/11/19 22:00 12/12/19 06:00 Temperature 36.2 C L 36.4 C L 36.6 C Pulse Rate 71 70 72 Respiratory Rate 16 18 18 Blood Pressure 98/60 L 153/90 H 141/81 H Pulse Oximetry 94 99 99 12/12/19 08:00 Temperature Pulse Rate 72 Respiratory Rate 18 Blood Pressure Pulse Oximetry 99 Intake/Output Intake/Output: Intake & Output 12/09/19 12/10/19 12/11/19 12/12/19 23:59 23:59 23:59 23:59 Intake Total 250 1090 1300 660 Output Total 552 196 8048 1000 Balance -50 690 275 -340 Meds/Results Medications: Active Medications Generic Name Dose Route Start Last Admin Trade Name Freq PRN Reason Stop Dose Admin Acetaminophen 650 mg
[2019-12-12 14:00] VITALS: BP 124/65; PULSE 70; RESP 16; TEMP 36.6; O2SAT 98
--- NOTE | 2019-12-12 15:49 | PM.DS ---
DS: Admitting Diagnosis Admitting Diagnosis Admitting Diagnosis: Weakness DS: Discharge Diagnosis Discharge Diagnosis (1) Generalized weakness: Code(s): R53.1 - Weakness Status: Acute Assessment and Plan: Likely due to Parkinsons disease. PT/OT evaluation when appropriate. The patient will likely need Rehab placement. (2) Frequent falls: Code(s): R29.6 - Repeated falls Status: Acute Assessment and Plan: Likely secondary to Parkinson's disease. (3) Parkinsons: Code(s): G20 - Parkinson's disease Status: Chronic Assessment and Plan: Neurology consultation to adjusting or adding further medications for Parkinson's disease. (4) Acute hypokalemia: Code(s): E87.6 - Hypokalemia Status: Resolved (5) Essential hypertension: Code(s): I10 - Essential (primary) hypertension Status: Acute Assessment and Plan: Blood pressure has been elevated. Monitor blood pressure. PRN hydralazine w/ parameters. (6) Paroxysmal atrial fibrillation: Code(s): I48.0 - Paroxysmal atrial fibrillation Status: Acute Assessment and Plan: Currently rate controlled in a paced rhythm. Continue Xarelto. (7) Chronic anemia: Code(s): D64.9 - Anemia, unspecified Status: Chronic Assessment and Plan: No signs of acute blood loss. Likely anemia of chronic disease. hb is 9 (8) Glaucoma: Qualifiers: Glaucoma type: unspecified Laterality: unspecified laterality Qualified Code(s): H40.9 - Unspecified glaucoma Code(s): H40.9 - Unspecified glaucoma Status: Chronic Assessment and Plan: Continue home glaucoma eye drops. (9) Gastroesophageal reflux disease: Qualifiers: Esophagitis presence: esophagitis presence not specified Qualified Code(s): K21.9 - Gastro-esophageal reflux disease without esophagitis Code(s): K21.9 - Gastro-esophageal reflux disease without esophagitis Status: Chronic Assessment and Plan: Continue PPI therapy. (10) Hyponatremia: Code(s): E87.1 - Hypo-osmolality and hyponatremia Status: Acute Assessment and Plan: Pt to added extra salt to his food. continue to monitor Na. Na is 132 DS: Summary Time Spent with Patient Time attestation: Total time spent providing and/or coordinating discharge services:40 minutes on the day of discharge Exam Const: General: ill appearing chronically and tired appearing Nutritional Appearance: thin Orientation/consciousness: patient oriented x3 Resp: Effort & Inspection: normal respiratory effort Auscultation: clear to auscultation bilaterally Cardio: Rate: regular rate Rhythm: regular rhythm Heart sounds: no murmurs GI: Inspection: normal to inspection Auscultation: normal bowel sounds Skin: General skin exam: normal color and no rashes or lesions noted Neuro: General: patient oriented x3 Cranial nerves: Yes CN's II-XII intact bilaterally and Yes Equal, round and reactive pupils present Speech: Abnormal speech present and Other speech findings present (Neuro) (Slow to speak or answer questions) Motor exam (neuro): no tremors, Abnormal muscle tone present (Diffuse rigidity+++ of upper and lower extremities++ ) and Other motor observations present (Very slow to initiate movement+) Sensory Exam: normal sensation Extrem: General: normal to inspection and no edema Other: Rigidity of limbs legs worse than arms muffled soft voice Psych: Affect: Sad affect present and Blunted affect present DS: Data Data Completed and Pending Labs on day of discharge: Labs from last 24 hours 12/12/19 12/12/19 12/11/19 05:42 05:42 06:10 WBC 5.6 RBC 3.13 L Hgb 9.9 L Hct 30.7 L MCV 98.1 MCH 31.6 MCHC 32.2 RDW 14.3 Plt Count 244 MPV 9.5 Immature Gran % (Auto) 0.4 Neut % (Auto) 71.5 Lymph % (Auto) 11.2 L [place] % (Auto) 8.6 H Eos % (Auto) 7.8 H
== END 2019-12-12 17:25 | DRG 57 ==
LOC: ANHED 13:01 → ANH3MEDSUR 13:13
PROVIDERS: Family Medicine; Admitting Provider Internal Medicine; Emergency Provider General Practice; PCP Family Medicine; Visit Provider Family Medicine
DX: G20 Parkinson's disease (principal); E87.1 Hypo-osmolality and hyponatremia; J81.1 Chronic pulmonary edema; E87.6 Hypokalemia; Z11.59 Encounter for screening for other viral diseases; R29.6 Repeated falls; R53.1 Weakness; I10 Essential (primary) hypertension; I48.0 Paroxysmal atrial fibrillation; H40.9 Unspecified glaucoma; K21.9 Gastro-esophageal reflux disease without esophagitis; D63.8 Anemia in other chronic diseases classified elsewhere; Z96.653 Presence of artificial knee joint, bilateral; Z87.891 Personal history of nicotine dependence; Z95.0 Presence of cardiac pacemaker; Z79.01 Long term (current) use of anticoagulants
CPT/HCPCS: 36415; 36600; 70450; 71045; 72100; 72125; 72170; 80048; 80053; 81001; 82375; 82805; 83050; 83735; 83880; 84484; 85025; 85610; 85730; 87635; 93005; 97161; 97165; 97530; 97535; 99285; A9270; C9803; U0003

== ENCOUNTER 2020-01-29 09:42 | Emergency (ER) | payer MEDICARE, OTHER, SELFPAY ==
--- NOTE | ~2020-01-29 | XR_ITS ---
EXAMINATION: XR shoulder RT min 2V INDICATION: Right shoulder pain after fall TECHNIQUE: Four views of the right shoulder are submitted on five radiographs. COMPARISON: None FINDINGS: Normal alignment. No fracture. 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 Soft tissues are unremarkable. IMPRESSION: 1. No acute osseous abnormality. Reviewed, dictated and finalized at location A.
[2020-01-29 09:41] VITALS: BP 157/88; PULSE 70; RESP 18; TEMP 36.4; O2SAT 100
--- NOTE | 2020-01-29 09:57 | ED.FALL ---
HPI - Fall General Chief Complaint: Fall Stated Complaint: fall Time Seen by Provider: 01/29/20 09:49 History of Present Illness HPI Narrative: Brought in by EMS from [facility] for shoulder pain. He apparently fell at some point during the night and was found on the ground this morning. He was sent in due to complaints of severe shoulder pain. On my evaluation he still has pain in the shoulder, but it is relatively mild. He also has significant tearing and redness of the right eye. He says that this is chronic. Although he also says that it may have been scratched. On chart review he has a h/o glaucoma and chronic dry eye. History limited by poor historian and speech difficulty Related Data Home Medications Medication Instructions Recorded Confirmed Restasis 1 drp OPHTHALMIC (EYE) BID 11/07/19 12/09/19 dorzolamide 1 drp OPHTHALMIC (EYE) TID 11/07/19 12/09/19 ferrous sulfate 325 mg PO DAILY 11/07/19 12/09/19 gabapentin 300 mg PO BID 11/07/19 12/09/19 latanoprost 1 drp OPHTHALMIC (EYE) HS 11/07/19 12/09/19 omeprazole 40 mg PO DAILY PRN 11/07/19 12/09/19 Caltrate + D3 Plus Minerals 600 tablet PO DAILY 12/09/19 12/09/19 Centrum Silver 1 tablet PO DAILY 12/09/19 12/09/19 acetaminophen 800 mg PO QID PRN 12/09/19 12/09/19 cholecalciferol (vitamin D3) 50 mcg PO DAILY 12/09/19 12/09/19 [Vitamin D3] Acidophilus 01/29/20 docusate sodium [Colace] 100 mg PO DAILY 01/29/20 01/29/20 polyethylene glycol 3350 [Miralax] 17 g PO DAILY PRN 01/29/20 01/29/20 Allergies Allergy/AdvReac Type Severity Reaction Status Date / Time clindamycin Allergy Rash Verified 01/29/20 10:05 Review of Systems Constitutional: Constitutional: Denies fever(s) Eyes: Eyes: Denies change in vision Cardiovascular: Cardiovascular: Denies chest pain Respiratory: Respiratory: Denies dyspnea Gastrointestinal: Gastrointestinal: Denies nausea Musculoskeletal: Musculoskeletal: Denies back pain Neurologic: Denies numbness and Denies weakness [facility] Past Medical History Medical History Chronic anemia With history of blood transfusion. Essential hypertension Gastroesophageal reflux disease Glaucoma History of MRSA infection Hypertension Pacemaker Parkinsons Paroxysmal atrial fibrillation On Xarelto for stroke prophylaxis. Status post permanent pacemaker insertion. History of cardiac ablation x2. Surgical History Surgical History History of cardiac radiofrequency ablation History of cardiac radiofrequency ablation (RFA) History of permanent cardiac pacemaker placement History of total bilateral knee replacement Family History Family History Mother Cerebrovascular accident Social History Social History Social History: Mr. Stanley lives with his in independent living at [place]. They have 2 children. He is originally from [place], [place] and is retired from the [employer]. He smoked remotely as young man and quit 1960. He drinks alcohol rarely on social occasions, and in moderation. No illicit substance use. He designates his Rosita as his surrogate decision maker and he wishes to be a full code. Smoking packs per day: 3 Smoking cigarettes per day: 60.0 Smoking status: Former smoker Alcohol intake: never Drinks per week: 1 Substance use: never Substance use type: does not use Other substance usage details: Gender identity (if verbalized by the patient): Male Spiritual care concerns: No Exam Const: General: no acute distress and alert Orientation/consciousness: patient oriented x3 HENMT: Head: normal to inspection Eyes: Conjunctivae: conjunctival abnormality right conjunctival injection Pupils: Equal, round and reactive pupils present EOM: EOMs intact bilateral
[2020-01-29 10:16] VITALS: BP 155/87
[2020-01-29 10:32] VITALS: BP 157/86
--- NOTE | 2020-01-29 11:26 | PC.NURSE ---
Addendum entered by Dimitri Pfeiffer RN 01/29/20 12:03: Dr. Starks made aware of findings, states the patient told him this is chronic. Original Note: Called to patient room, pt c/o intense pain to right eye, note eye watering, sclera and conjunctiva pink. Also reports burning and photophobia. Bedside report to JAYCEE Toribio, to continue care.
[2020-01-29 11:46] VITALS: BP 179/94
[2020-01-29 12:01] VITALS: BP 170/92
[2020-01-29] MEDS: ACETAMINOPHEN 500 MG TABLET 1000 MG PO (12:30)
[2020-01-29 13:41] VITALS: BP 170/75; PULSE 71; RESP 16; TEMP 36.8; O2SAT 100
== END 2020-01-29 14:16 ==
PROVIDERS: Emergency Provider Emergency Medicine; PCP Family Medicine
DX: M25.511 Pain in right shoulder (principal); D64.9 Anemia, unspecified; I10 Essential (primary) hypertension; K21.9 Gastro-esophageal reflux disease without esophagitis; H40.9 Unspecified glaucoma; Z86.14 Personal history of Methicillin resistant Staphylococcus aureus infection; Z95.0 Presence of cardiac pacemaker; I48.0 Paroxysmal atrial fibrillation; Z79.01 Long term (current) use of anticoagulants; Z96.653 Presence of artificial knee joint, bilateral; Z87.891 Personal history of nicotine dependence; W19.XXXA Unspecified fall, initial encounter
CPT/HCPCS: 73030; 99283; A9270

== ENCOUNTER 2020-01-31 11:47 | Inpatient (IN) | payer MEDICARE, OTHER, SELFPAY ==
[2020-01-31] VITALS (7 sets, daily range): BP systolic 90–181; BP diastolic 60–90; PULSE 69–78; RESP 16–26; TEMP 36.3–36.8; O2SAT 98–99; BMI 21.0
--- NOTE | ~2020-01-31 | CT_ITS ---
EXAMINATION: CT brain wo con EXAM DATE: 01/31/2020 12:09 INDICATION: Increasing focal weakness. TECHNIQUE: Spiral CT of the head was performed without contrast. Axial, coronal and sagittal images were reviewed. The dose-length product (DLP) for this examination was 681.00 mGy-cm. The exposure w as tailored according to patient size, and iterative reconstruction (ASIR) was used as additional dos e reduction technique. Comparison is made to prior examination from 12/09/2019. FINDINGS: There is no acute intraparenchymal hemorrhage. No evidence of intraparenchymal brain mass lesion. No evidence of acute infarction. Please note that initial head CT has limited sensitivity f or small or acute infarctions. There is moderate periventricular and subcortical hypodensity, nonspec ific but probably related to small vessel ischemic disease. There is moderate prominence of the sul ci and ventricles related to cerebral atrophy. There is intracranial carotid arteriosclerosis. The re are no extra-axial collections. There is no mass effect or midline shift. Patient has had bilate ral ocular lens surgery. Soft tissue is unremarkable. The visualized sinuses and mastoid air cells are well aerated. IMPRESSION: 1. No acute intracranial findings. 2. Chronic age related findings. Reviewed, dictated and finalized at location A.
--- NOTE | ~2020-01-31 | CT_ITS ---
EXAMINATION: CTA brain carotid DATE: 01/31/2020 13:12 INDICATION: Right hemiparesis. TECHNIQUE: Computed tomographic angiography (CTA) of the head was performed with 100 mL Omnipaque-350 intravenous contrast. CTA of the neck was performed with intravenous contrast. Automated exposure co ntrol and iterative reconstruction technique were employed. The dose-length product was 1147.80 mGy-c m. Maximum intensity projection and volume rendered 3D-reconstructions were created by the [employer] st on a separate workstation. COMPARISON: Head CT 01/31/2020 FINDINGS: HEAD CTA: There are scattered areas of low attenuation in the cerebral white matter, which is within normal limits for the patient's age. There is no intracranial hemorrhage, acute infarction, or abnorm al intracranial mass lesion. The ventricles are normal in size. There are likely changes of ocular le ns replacement surgeries. There is mild mucosal thickening in the ethmoid sinuses. The mastoid air ce lls are normal. The vertebral arteries are codominant. There is no significant stenosis of basilar ar gi or the posterior cerebral arteries. There is mild stenosis of the intracranial internal carotid arteries. There is no significant stenosis of the anterior or middle cerebral arteries. Anterior comm unicating artery and the posterior communicating arteries are normal. There is no aneurysm. NECK CTA: There are no pathologically enlarged lymph nodes. There are multiple nodules in the thyroid measuring up to 4.0 cm on the right. There is mild stenosis of right vertebral artery origin. There is plaque in the proximal internal carotid arteries. There is 0% stenosis of the proximal right inter nal carotid artery relative to normal distal artery lumen diameter (NASCET criteria). There is 0% gabe nosis of the proximal left internal carotid artery relative to normal distal artery lumen diameter. T here is severe cervical spondylosis. IMPRESSION: 1. Normal aging brain. No aneurysm or significant intracranial arterial stenosis. 2. 0% stenosis of the proximal internal carotid arteries relative to normal distal artery lumen diame ters (NASCET criteria). 3. Multinodular goiter. Consider thyroid ultrasound for risk stratification. Reviewed, dictated and finalized at location B. IMPRESSION: 1. Normal aging brain. No aneurysm or significant intracranial arterial stenosi s. 2. 0% stenosis of the proximal internal carotid arteries relative to normal dis amol artery lumen diameters (NASCET criteria). 3. Multinodular goiter. Consider thyroid ultrasound for risk stratification.
--- NOTE | ~2020-01-31 | CT_ITS ---
EXAMINATION: CT cervical spine wo con DATE: 02/01/2020 15:35 INDICATION: Significant bilateral upper extremity weakness TECHNIQUE: Computed tomography (CT) of the cervical spine was performed without intravenous contrast. Automated exposure control and iterative reconstruction technique were employed. The dose-length pro duct was 260.60 mGy-cm. COMPARISON: 12/09/2019 FINDINGS: Mild cervical levocurvature. Sagittal alignment is normal. Cervical vertebral body heights are normal . Chronic mild anterior wedging at T1. Severe disc height loss with degenerative endplate changes at C3-C4, C5-C6 and C6-C7. Moderate osteoarthritis at the atlantoaxial articulation. Bilateral multileve l moderate to severe uncovertebral osteoarthritis. Multilevel mild left-sided and moderate to severe right-sided cervical facet osteoarthritis. Mild soft tissue canal stenosis associated with disc bulge s at C2-C3 through C4-C5. Moderate neural foraminal stenosis on the right at the 4 C5. Mild neural fo raminal stenosis at multiple additional levels on the left and right side of the cervical spine. Mult inodular goiter. Mild biapical pleural-parenchymal scarring. IMPRESSION: 1. No interval change in severe cervical spondylosis. No acute osseous abnormality. Reviewed, dictated and finalized at location A. IMPRESSION: 1. No interval change in severe cervical spondylosis. No acute osseous abnormal ity.
--- NOTE | ~2020-01-31 | US_ITS ---
EXAMINATION: US thyroid DATE: 02/01/2020 09:22 INDICATION: Multinodular goiter. TECHNIQUE: Multiple ultrasound images of the thyroid were obtained. COMPARISON: None. FINDINGS: The right thyroid lobe measures 7.6 x 4.2 x 3.9 cm. The left thyroid lobe measures 5.5 x 2.5 x 2.2 c m. In the right thyroid lobe, there is a 4.8 cm solid, hypoechoic, jhwww-xjde-nfow nodule with ill-d efined margin without echogenic foci (TI-RADS TR4). In right thyroid lobe, there is a 13 mm solid, is oechoic, kjcze-wqat-ufch nodule with ill-defined margin without echogenic foci (TR3). In the left thy roid lobe, there is a 10 mm mixed cystic and solid, hypoechoic, jnyty-mdql-bnuu nodule with smooth ma rgin without echogenic foci (TR3). In the left thyroid lobe, there is a 2.0 cm solid, hypoechoic, amol vpu-fkew-lpnl nodule with ill-defined margin without echogenic foci (TR5). IMPRESSION: 1. Thyroid nodules. Ultrasound-guided fine-needle aspiration of the 4.8 cm right thyroid nodule and 2 .0 cm left thyroid nodule is recommended. Reviewed, dictated and finalized at location B. IMPRESSION: 1. Thyroid nodules. Ultrasound-guided fine-needle aspiration of the 4.8 cm righ t thyroid nodule and 2.0 cm left thyroid nodule is recommended.
--- NOTE | ~2020-01-31 | XR_ITS ---
EXAMINATION: XR chest 1V portable DATE: 01/31/2020 12:14 INDICATION: Weakness. Bradycardia. TECHNIQUE: A single frontal view of the chest was obtained. COMPARISON: Chest single view 12/09/2019, cervical spine CT 12/09/2019 FINDINGS: A calcified left lung nodule is consistent with old granulomatous disease. There are airspa ce opacities at left lung base. No pleural effusion or pneumothorax. Cardiomegaly is noted. There is a left chest pacer with lead in right atrium and 2 leads overlying right ventricle. There is widening of the superior mediastinum correlating with an intrathoracic goiter on the prior CT. IMPRESSION: 1. Airspace opacities at left lung base, consistent with atelectasis versus pneumonia. 2. Cardiomegaly. 3. Goiter. Reviewed, dictated and finalized at location B. IMPRESSION: 1. Airspace opacities at left lung base, consistent with atelectasis versus pne umonia. 2. Cardiomegaly. 3. Goiter.
--- NOTE | 2020-01-31 11:51 | ECG_ITS ---
Measurements Intervals [place] Rate: 71 P: TN: 0 QRS: 153 QRSD: 169 T: -4 QT: 473 QTc: 517 Interpretive Statements ELECTRONIC ATRIAL PACEMAKER WITH INHIBITION ELECTRONIC VENTRICULAR PACEMAKER ATRIAL PREMATURE COMPLEX BASELINE WANDER- I, II, III NO FURTHER INTERPRETATION IS POSSIBLE ATYPICAL ECG Electronically Signed On 01-31-2020 13:41:28 CDT by Levi Win D.O.
[2020-01-31 11:56] LABS: Glucose Point of Care 121 (65-105)
[2020-01-31 12:07] LABS: Basophils Percent Auto 0.2 % (0.2-1.2); Hematocrit 32.7 % (42.0-52.0); Hemoglobin 10.7 g/dL (14.0-18.0); Immature Granulocyte Absolute 0.03 K/mm3 (0.00-0.031); Immature Granulocyte Percent A 0.4 % (0-0.5); Lymphocytes Absolute Auto 0.65 K/mm3 (0.9-3.2); Lymphocytes Percent Auto 7.7 % (18.3-44.2); Mean Corpuscular HGB Conc 32.7 g/dl (32-36); Mean Corpuscular Hemoglobin 31.3 pg (26-34); Mean Corpuscular Volume 95.6 fl (80-100); Mean Platelet Volume 9.8 fl (7.4-10.4); Monocytes Absolute Auto 0.5 K/mm3 (0.1-0.6); Monocytes Percent Auto 5.8 % (2.6-8.5); Neutrophils Absolute Auto 7.3 K/mm3 (1.3-6.7); Neutrophils Percent Auto 85.9 % (45.5-73.1); Platelet Count Result 216 k/mm3 (150-375); Red Blood Count 3.42 M/mm3 (4.6-6.20); Red Cell Distribution Width 14.5 % (11.5-14.5); White Blood Count 8.5 K/mm3 (4.5-10.0)
[2020-01-31 12:18] LABS: Anion Gap 9 mmol/L (8-16); Blood Urea Nitrogen 62 mg/dL (9-20); Carbon Dioxide 26 mmol/L (22-30); Chloride 102 mmol/L (98-107); Estimated CRCL calculation 58 ml/min; Estimated Glomerular Filt Rate > 60; Glucose 134 mg/dL (75-110); Potassium 2.9 mmol/L (3.4-5.0); Sodium 137 mmol/L (137-145)
[2020-01-31 12:20] LABS: Prothrombin Time 22.4 Seconds (11.1-14.7)
[2020-01-31 12:22] LABS: Partial Thromboplastin Time 31.7 SECONDS (22.3-36.8)
[2020-01-31 12:30] LABS: Troponin I 0.026 ng/mL (0.000-0.034)
[2020-01-31 12:36] LABS: Add Urine Microscopic? YES; Appearance Urine Clear (Clear); Bilirubin Urine Negative (Negative); Blood Urine Negative (Negative); Color Urine Yellow (Yellow); Glucose Urine UA Negative (Negative); Ketones Urine Trace mg/dL (Negative); Leukocyte Esterase Ur Negative LEU/UL (Negative); Mucus Urine Rare /lpf; Nitrate Urine Negative (Negative); Protein Urine Negative (Negative); Specific Grav Ur 1.023 (1.001-1.035); Squamous Epithelial Cell Urine Rare /hpf (Few); Urobilinogen Urine Negative mg/dL (<2.0); WBC Urine 0-3 /hpf
--- NOTE | 2020-01-31 12:42 | ED.GENADULT ---
HPI - General Adult General Chief complaint: Weakness Stated complaint: WEAKNESS Time Seen by Provider: 01/31/20 12:15 Source: patient and EMS History of Present Illness HPI narrative: Patient is a 84 y/o male sent [place] for right arm weakness. It's unknown when LKW was. Patient was noted by staff at [facility] that he is not able to lift up right arm. Patient does not know for sure when that all started. He is able to follow simple commands, but he is poor historian. Of note, he was seen here 2 day ago for right shoulder injury. However, patient does not recall should injury at this time. Related Data Home Medications Medication Instructions Recorded Confirmed Restasis 1 drp OPHTHALMIC (EYE) BID 11/07/19 01/31/20 dorzolamide 1 drp OPHTHALMIC (EYE) TID 11/07/19 01/31/20 ferrous sulfate 325 mg PO DAILY 11/07/19 01/31/20 gabapentin 300 mg PO BID 11/07/19 01/31/20 latanoprost 1 drp OPHTHALMIC (EYE) HS 11/07/19 01/31/20 omeprazole 40 mg PO DAILY PRN 11/07/19 01/31/20 Caltrate + D3 Plus Minerals 600 tablet PO DAILY 12/09/19 01/31/20 Centrum Silver 1 tablet PO DAILY 12/09/19 01/31/20 acetaminophen 800 mg PO QID PRN 12/09/19 01/31/20 cholecalciferol (vitamin D3) 50 mcg PO DAILY 12/09/19 01/31/20 [Vitamin D3] Acidophilus 01/29/20 docusate sodium [Colace] 100 mg PO DAILY 01/29/20 01/31/20 polyethylene glycol 3350 [Miralax] 17 g PO DAILY PRN 01/29/20 01/31/20 tuberculin PPD [Tubersol] 0.1 ml INTRADERMAL ONCE 01/31/20 Allergies Allergy/AdvReac Type Severity Reaction Status Date / Time clindamycin Allergy Rash Verified 01/29/20 10:05 Review of Systems Review of Systems: ROS unobtainable: Yes unobtainable due to mental status PMFSH Past Medical History Medical History (Updated 01/31/20 @ 16:16 by Daphne Kumar MD) Chronic anemia With history of blood transfusion. On iron supplementation. Essential hypertension Frequent falls Gastroesophageal reflux disease Glaucoma History of MRSA infection Hypertension Pacemaker Parkinsons Paroxysmal atrial fibrillation On Xarelto for stroke prophylaxis. Status post permanent pacemaker insertion. History of cardiac ablation x2. Surgical History Surgical History (Updated 01/31/20 @ 15:33 by Deedee Romero PA-C) History of cardiac radiofrequency ablation History of permanent cardiac pacemaker placement History of total bilateral knee replacement Family History Family History Mother Cerebrovascular accident Social History Social History Social History: Mr. Stanley lives with his in independent living at [place]. They have 2 children. He is originally from [place], [place] and is retired from the [employer]. He smoked remotely as young man and quit 1960. He drinks alcohol rarely on social occasions, and in moderation. No illicit substance use. He designates his Rosita as his surrogate decision maker and he wishes to be a full code. Smoking packs per day: 3 Smoking cigarettes per day: 60.0 Smoking status: Former smoker Alcohol intake: never Drinks per week: 1 Substance use: never Substance use type: does not use Other substance usage details: Gender identity (if verbalized by the patient): Male Spiritual care concerns: No Exam Const: General: no acute distress and ill appearing Orientation/consciousness: oriented to person, oriented to place, oriented to time, patient oriented x3 and confusion HENMT: Head: normocephalic Ears: external ears normal General nose exam: Normal external nose present Eyes: General: appearance normal, both eyes and all related structures Conjunctivae: conjunctivae normal Neck: Neck: normal visual inspection and full ROM Chest: Chest palpation & inspection: normal inspection of the chest and no tenderness Resp: Effort & Inspection: normal respiratory effort Auscultation:
[2020-01-31] MEDS: SODIUM CHLORIDE 0.9% IV 1,000 ML 999 ML IV CONT (13:07)
[2020-01-31] MEDS: POTASSIUM CHLORIDE 20 MEQ TABLET PO (14:24)
--- NOTE | 2020-01-31 15:22 | PC.NURSE ---
This patient, Winston Stanley, was admitted to 3 Med Surg Room 304-01. Patient/family oriented to hospital policies and general routines including ID bracelet, bed and alarms, visiting hours, pain management, procedures, bathroom and other care routines, personal items, smoking policy, room service/diet, and visiting hours. Valuables list has been completed. Information on how to activate the Rapid Response Team has been discussed. Patient/Family are encouraged to report perceived risks to care and to ask questions if they do not understand what they are told or what they should do.
--- NOTE | 2020-01-31 18:00 | PM.IMHP ---
H&P: HPI History of Present Illness Date/Time: 01/31/20 16:00 Chief complaint: Right arm weakness. Narrative: Winston Stanley is a very pleasant 84-year-old male with advanvced Parkinson's, atrial fibrillation status post permanent pacemaker insertion and cardiac ablation x2 on long-term anticoagulation, GERD, and chronic anemia on iron supplementation who presented to the emergency department today via EMS from [place] for evaluation of right upper extremity weakness. His history is somewhat limited by his garbled speech due to his Parkinson, and I have supplemented some of the following information via a review of his electronic medical records. He is known to the hospitalist service and has had several admissions this year for weakness and frequent falls. I admitted the patient on November 07, 2019 for the same and he was discharged to [facility] for rehab. He was readmitted on December 08 and was ultimately discharged to [facility] for rehab. During his most recent admission, he was evaluated by Neurology and they added ropinirole to his regimen to see if that would help, however the patient does not see much benefit from the drug. In any event, he fell at some point Friday night and was found on the floor the following morning by staff at [facility]. He was brought in for evaluation of right shoulder pain, had negative imaging, and was discharged. Apparently he has had increasing weakness of the right arm since that time, reportedly flaccid this afternoon, and he was sent back in for evaluation. At the time my evaluation, he is really unable to do much with either upper extremity, specifically he is not able to lift his arms up off of the bed, nor is he able to hold them up to gravity when I lift his arms for him. It sounds as though this is been going on for a couple of days. He is not having any pain in the shoulder, and I was able to perform passive range of motion with his shoulders and elbows without pain. He denies numbness and tingling in the arms. He denies that he hit his head in the fall 2 nights ago, and is having no head or neck pain. Head and neck CTA done in the emergency department on arrival showed severe cervical spondylosis but no acute findings. Review of Systems Review of Systems: Narrative: Twelve systems were reviewed with pertinent positives and negatives as per HPI. No fever, chills, or sweats. He denies headache, auditory, and visual changes. He has occasional dysphagia but denies concerns for aspiration. No chest pain or shortness of breath. He denies nausea and vomiting. He does suffer from GERD and frequently has heartburn. His stools are chronically dark as he is on iron supplementation, and this is unchanged. He does mention having some mild lower abdominal discomfort yesterday that he has a hard time describing, but states that he is having no pain at all today. He denies dysuria. He has chronic lower extremity weakness, but states that he is able to ambulate with a walker. No paresthesias in the lower extremities. No change in strength of lower extremities. Except as documented, all other systems were reviewed and are negative. [facility] Past Medical History Medical History Chronic anemia With history of blood transfusion. On iron supplementation. Essential hypertension Frequent falls Gastroesophageal reflux disease Glaucoma History of MRSA infection Hypertension Pacemaker Parkinsons Paroxysmal atrial fibrillation On Xarelto for stroke prophylaxis. Status post permanent pacemaker insertion. History of cardiac ablation x2. Surgical History Surgical History History of cardiac radiofrequency ablation History of permanent cardiac pacemaker placement History of total bilateral knee replacement Family History Family History Mo
[2020-01-31] MEDS: SODIUM CHLORIDE 0.9% IV 1,000 ML 125 ML IV CONT (18:10)
[2020-01-31 22:31] LABS: Hematocrit 28.9 % (42.0-52.0); Hemoglobin 9.3 g/dL (14.0-18.0)
[2020-01-31 22:50] LABS: Anion Gap 5 mmol/L (8-16); Blood Urea Nitrogen 50 mg/dL (9-20); Calcium 8.1 mg/dL (8.4-10.2); Carbon Dioxide 26 mmol/L (22-30); Chloride 105 mmol/L (98-107); Estimated CRCL calculation 58 ml/min; Estimated Glomerular Filt Rate > 60; Glucose 106 mg/dL (75-110); Magnesium 1.9 mg/dL (1.6-2.3); Sodium 136 mmol/L (137-145)
[2020-02-01] VITALS (8 sets, daily range): BP systolic 127–152; BP diastolic 74–92; PULSE 66–72; RESP 18–20; TEMP 36.6–36.9; O2SAT 96–100
[2020-02-01] MEDS: POTASSIUM CHLORIDE 20 MEQ TABLET 40 MEQ PO ×2 (00:20→08:46)
[2020-02-01] MEDS: SODIUM CHLORIDE 0.9% IV 1,000 ML 125 ML IV CONT (02:11)
[2020-02-01 06:13] LABS: Hematocrit 30.4 % (42.0-52.0); Hemoglobin 9.8 g/dL (14.0-18.0); Mean Corpuscular HGB Conc 32.2 g/dl (32-36); Mean Corpuscular Hemoglobin 31.4 pg (26-34); Mean Corpuscular Volume 97.4 fl (80-100); Platelet Count Result 190 k/mm3 (150-375); Red Blood Count 3.12 M/mm3 (4.6-6.20); Red Cell Distribution Width 14.4 % (11.5-14.5); White Blood Count 5.1 K/mm3 (4.5-10.0)
[2020-02-01 06:24] LABS: Alanine Aminotransferase 12 U/L (4-50); Albumin Level 3.2 g/dL (3.5-5.1); Alkaline Phosphatase 54 U/L (38-126); Anion Gap 4 mmol/L (8-16); Aspartate Amino Transferase 29 U/L (17-59); Bilirubin,Total 0.4 mg/dL (0.2-1.3); Blood Urea Nitrogen 40 mg/dL (9-20); Calcium 8.2 mg/dL (8.4-10.2); Carbon Dioxide 26 mmol/L (22-30); Chloride 106 mmol/L (98-107); Estimated CRCL calculation 72 ml/min; Estimated Glomerular Filt Rate > 60; Glucose 103 mg/dL (75-110); Magnesium 1.9 mg/dL (1.6-2.3); Potassium 3.3 mmol/L (3.4-5.0); Sodium 136 mmol/L (137-145)
[2020-02-01 07:23] LABS: Thyroid Stimulating Hormone Reflex 0.828 uIU/mL (0.465-4.68)
[2020-02-01] MEDS: rOPINIRole HCL 0.5 MG TABLET PO ×3 (07:42→21:58)
[2020-02-01] MEDS: SODIUM CHLORIDE 0.9% IV 1,000 ML 75 ML IV CONT (07:42)
[2020-02-01] MEDS: CARBIDOPA/LEVODOPA 25/250 MG TABLET 1 TABLET PO ×3 (07:42→21:58)
[2020-02-01] MEDS: DOCUSATE SODIUM 100 MG CAPSULE PO (08:39)
[2020-02-01] MEDS: ACIDOPHILUS/BULGARICUS CHEWABLE TABLET 1 TABLET BY MOUTH (08:39)
[2020-02-01] MEDS: CHOLECALCIFEROL 1,000 UNITS TABLET 2000 UNITS PO (08:39)
[2020-02-01] MEDS: FERROUS SULFATE 324 MG TABLET PO (08:40)
[2020-02-01] MEDS: DORZOLAMIDE HCL 2% OPHTH DROPS 1 DROP EACH EYE ×2 (08:40→13:33)
[2020-02-01] MEDS: MULTIVITAMINS /C LUTEIN (CENTRUM SILVER) TABLET *BKC 1 TAB PO (08:40)
[2020-02-01] MEDS: PANTOPRAZOLE 40 MG TABLET PO (08:40)
[2020-02-01] MEDS: GABAPENTIN 300 MG CAPSULE PO ×2 (08:40→18:25)
[2020-02-01] MEDS: cycloSPORINE 0.4 ML OPHTH SOLUTION 1 DROP EACH EYE ×2 (08:41→18:28)
--- NOTE | 2020-02-01 10:42 | PM.IMPN ---
Progress Note: A&P Assessment and Plan (1) Upper extremity weakness: Code(s): R29.898 - Other symptoms and signs involving the musculoskeletal system Status: Acute Assessment and Plan: Etiology is not entirely clear, but this seems to have come on rather suddenly after a fall a couple of nights ago. CT of the head and neck did not demonstrate any acute findings, but did show severe cervical spondylosis. He is having no neck pain or midline vertebral tenderness nor does he have joint tenderness on palpation. Concerning for myelopathy or even central cord syndrome - appreciate neurology recommendations. CT C-spine has been ordered; unable to obtain MRI secondary to pacemaker. (2) Elevated BUN: Code(s): R79.9 - Abnormal finding of blood chemistry, unspecified Status: Acute Assessment and Plan: Improving. Stool occult blood is negative making GI bleed less likely. Will monitor BMP. (3) Hypokalemia: Code(s): E87.6 - Hypokalemia Status: Acute Assessment and Plan: K improved to 3.3 today and again replaced. Will monitor BMP and check magnesium. (4) Multinodular goiter: Code(s): E04.2 - Nontoxic multinodular goiter Status: Acute Assessment and Plan: Incidental finding on head and neck CTA. Thyroid ultrasound showed multiple thyroid nodules including a 4.8 cm solid nodule in the right thyroid, 2.0 cm solid nodule in the left thyroid; fine needle aspiration is recommended. Discussed these findings with the patient. At this point he is not interested in pursuing thyroid nodule biopsy. 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 Will defer this to outpatient workup should he change his mind. TSH is within normal limits. (5) Chronic anemia: Code(s): D64.9 - Anemia, unspecified Status: Chronic Assessment and Plan: H&H low but stable. No evidence of acute bleeding. (6) Parkinsons: Code(s): G20 - Parkinson's disease Status: Chronic Assessment and Plan: Continue carbidopa/levodopa and ropinirole. (7) Paroxysmal atrial fibrillation: Code(s): I48.0 - Paroxysmal atrial fibrillation Status: Acute Assessment and Plan: Continue Xarelto. Subjective Date/time seen: 02/01/20 10:15 Interval history: Mr. Stanley is an 84yo M with Parkinson's admitted for right arm weakness. His speech is slow and soft but he is alert and oriented x 4. He describes he is right handed, normally able to feed himself but over the last 3 to 4 days has experienced upper extremity weakness, R worse than left. He notes his R arm weakness has actually made improvement over the last 2 days. He denies chest pain, shortness of breath. He denies issues with swallowing but nursing noted a coughing episode trying to take medications this morning. He noted he had worked with speech therapy in the past but had not had issues with swallowing in the past that he knows of. He denies any right arm pain or tingling. Passing gas, has had BM here and urinating okay. Review of Systems Review of Systems: Narrative: Twelve systems were reviewed with pertinent positives and negatives as per HPI. Exam Narrative: Exam Narrative: General: Patient resting supine in bed in no acute distress. HEENT: Normocephalic, EOMI, oral mucosa tacky. Neck: No point tenderness to palpation. Cardiovascular: Rate is normal, rhythm is irregular. Respiratory: Lungs clear to auscultation all bustamante. Non-labored breathing. Abdomen: Soft, non-tender, non-distended, bowel sounds present. Extremities: Peripheral pulses intact. Upper extremity strength
[2020-02-01 14:56] LABS: Immunochemical Fecal Occult Bl Negative (N)
[2020-02-01 14:57] LABS: IFOB Positive Control Positive
--- NOTE | 2020-02-01 15:10 | WPDNEURCNPN ---
Assessment and Plan Assessment and plan (1) Upper extremity weakness: Code(s): R29.898 - Other symptoms and signs involving the musculoskeletal system Status: Acute (2) Right arm weakness: Code(s): R29.898 - Other symptoms and signs involving the musculoskeletal system Status: Acute (3) Dehydration: Code(s): E86.0 - Dehydration Status: Acute (4) Hypokalemia: Code(s): E87.6 - Hypokalemia Status: Acute (5) Elevated BUN: Code(s): R79.9 - Abnormal finding of blood chemistry, unspecified Status: Acute (6) Multinodular goiter: Code(s): E04.2 - Nontoxic multinodular goiter Status: Acute (7) Frequent falls: Code(s): R29.6 - Repeated falls Status: Acute (8) Hyponatremia: Code(s): E87.1 - Hypo-osmolality and hyponatremia Status: Acute (9) Gastroesophageal reflux disease: Qualifiers: Esophagitis presence: esophagitis presence not specified Qualified Code(s): K21.9 - Gastro-esophageal reflux disease without esophagitis Code(s): K21.9 - Gastro-esophageal reflux disease without esophagitis Status: Chronic (10) Glaucoma: Qualifiers: Glaucoma type: unspecified Laterality: unspecified laterality Qualified Code(s): H40.9 - Unspecified glaucoma Code(s): H40.9 - Unspecified glaucoma Status: Chronic (11) Paroxysmal atrial fibrillation: Code(s): I48.0 - Paroxysmal atrial fibrillation Status: Acute (12) History of cardiac radiofrequency ablation (RFA): Code(s): Z98.890 - Other specified postprocedural states Status: Acute (13) Parkinsons: Code(s): G20 - Parkinson's disease Status: Chronic Additional Plan I have requested a CT of the cervical spine to see if there is evidence of a cervical injury that will go inside with the clinical impression of with this examiner as cervical myelopathy whether not he will be a surgical candidate it will all depend how severe the disease is he does have evidence of cervical spondylosis on the previous CT performed in December Consult date: 02/01/20 Time Seen: 14:30 HPI: Winston Stanley is a 84 year old male is admitted because of the arm weakness which is bilateral in fact and also generalized weakness including upper and lower extremities without any neck pain he has significantly advanced Parkinson's disease with dysarthria dysphonia however is with it he denies any headache nausea vomiting chest pain shortness of breath fever chills or sore throat the question to this examiner is did he have a injury to his cervical spine responsible for a picture of a spinal cord syndrome however MRI cannot be performed due to the pacemaker insertion at this point Review of Systems Review of Systems: All systems reviewed & are unremarkable except as noted in HPI and below PMFSH Past Medical History Medical History Chronic anemia With history of blood transfusion. On iron supplementation. Essential hypertension Frequent falls Gastroesophageal reflux disease Glaucoma History of MRSA infection Hypertension Pacemaker Parkinsons Paroxysmal atrial fibrillation On Xarelto for stroke prophylaxis. Status post permanent pacemaker insertion. History of cardiac ablation x2. Surgical History Surgical History History of cardiac radiofrequency ablation History of permanent cardiac pacemaker placement History of total bilateral knee replacement Family History Family History Mother Cerebrovascular accident Social History Social History Social History: Mr. Stanley lives with his in independent living at [place]. They have 2 children. 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 He sm
--- NOTE | 2020-02-01 16:02 | PCSTNOTE ---
Attempted to complete bedside swallow evaluation, however, pt was leaving the room for CT. Spoke with Kacy GUEVARA; ST will see pt 8-26-20 am.
[2020-02-01] MEDS: RIVAROXABAN 20 MG TABLET PO (18:26)
[2020-02-01] MEDS: LATANOPROST 0.005% OP SOLN 2.5 ML BTL 1 DROP EACH EYE (21:59)
[2020-02-02] VITALS (9 sets, daily range): BP systolic 149–173; BP diastolic 74–89; PULSE 69–71; RESP 18–20; TEMP 36–36.9; O2SAT 100
[2020-02-02] MEDS: SODIUM CHLORIDE 0.9% IV 1,000 ML 75 ML IV CONT ×2 (01:47→09:06)
[2020-02-02] MEDS: CARBIDOPA/LEVODOPA 25/250 MG TABLET 1 TABLET PO ×3 (05:42→22:22)
[2020-02-02] MEDS: rOPINIRole HCL 0.5 MG TABLET PO ×3 (05:42→22:22)
[2020-02-02 06:31] LABS: Hematocrit 27.1 % (42.0-52.0); Hemoglobin 8.6 g/dL (14.0-18.0)
[2020-02-02 06:45] LABS: Anion Gap 3 mmol/L (8-16); Blood Urea Nitrogen 30 mg/dL (9-20); Carbon Dioxide 24 mmol/L (22-30); Chloride 110 mmol/L (98-107); Estimated CRCL calculation 67 ml/min; Estimated Glomerular Filt Rate > 60; Glucose 101 mg/dL (75-110); Magnesium 1.9 mg/dL (1.6-2.3); Potassium 3.7 mmol/L (3.4-5.0); Sodium 137 mmol/L (137-145)
[2020-02-02] MEDS: CHOLECALCIFEROL 1,000 UNITS TABLET 2000 UNITS PO (09:09)
[2020-02-02] MEDS: ACIDOPHILUS/BULGARICUS CHEWABLE TABLET 1 TABLET BY MOUTH (09:09)
[2020-02-02] MEDS: DOCUSATE SODIUM 100 MG CAPSULE PO (09:09)
[2020-02-02] MEDS: MULTIVITAMINS /C LUTEIN (CENTRUM SILVER) TABLET *BKC 1 TAB PO (09:09)
[2020-02-02] MEDS: GABAPENTIN 300 MG CAPSULE PO ×2 (09:09→18:38)
[2020-02-02] MEDS: FERROUS SULFATE 324 MG TABLET PO (09:09)
[2020-02-02] MEDS: cycloSPORINE 0.4 ML OPHTH SOLUTION 1 DROP EACH EYE ×2 (09:10→18:44)
[2020-02-02] MEDS: DORZOLAMIDE HCL 2% OPHTH DROPS 1 DROP EACH EYE ×3 (09:10→18:38)
[2020-02-02] MEDS: ACETAMINOPHEN 325 MG TABLET 650 MG PO (09:22)
--- NOTE | 2020-02-02 10:56 | PCOTNOTE ---
Attempted to see patient this am, however patient first declined. Upon introduction of therapy, patient was agitated stating, You need to get your act together. Do you know Rocío Aponte? You need to get with her and come back. I've never seen more of a screwed up system, and I was in the for 37 years. Do you realize you have competing therapies here? Explained process of therapy and the bridge of therapy from [facility]. That makes sense. Pt started calling out Therapy! I want to go to bed! I'd like to lay down and do some exercises. Assisted patient back to bed and completed upper extremity exercises.
--- NOTE | 2020-02-02 12:00 | PM.TDS ---
Transfer Discharge Sum: Prov Provider Date of admission: 02/02/20 14:20 Primary care physician: Torito Suarez MD Admitting clinician: Jose Martin Phelps MD Consults: 02/01/20 Consult to Physician Routine Comment: SPOKE TO DR NELSON @0820 ([place],) Consulting Provider: Feliciano Nelson DS: Admitting Diagnosis Admitting Diagnosis Admitting Diagnosis: Dehydration, Right Arm Weakness DS: Discharge Diagnosis Discharge Diagnosis (1) Upper extremity weakness: Code(s): R29.898 - Other symptoms and signs involving the musculoskeletal system Status: Acute Assessment and Plan: Date of Service 02/02/20 ; Date of Transfer 02/03/20 after midnight. Mr. Stanley is an 84yo M with advanced Parkinson's, atrial fibrillation s/p permanent pacemaker insertion and cardiac ablation x2 on long-term anticoagulation, GERD, and chronic anemia on iron supplementation who presented to the ED for evaluation of right upper extremity weakness. The patient fell and presented to the ED 01/29/20, was discharged after imaging revealed no acute fractures. Since that time, he is experiencing market upper and lower extremity weakness, worse in the right upper extremity. Workup thus far has included CT brain and CTA head and neck with no acute intracranial findings, CT spine showing severe cervical spondylosis without acute osseous abnormality, incidental finding of a multinodular goiter. Patient has a [employer] pacemaker that is unfortunately not MRI compatible. Patient was evaluated by Neurology, Dr. Larson, who recommends the patient would benefit from transfer to higher level of care for further evaluation given the patient's complex neurological history and Dr. Larson's concern for a cervical myelopathy and inability to evaluate the spinal cord with an MRI. The patient's established neurologist is Dr. Haresh Mattson with the movement disorders clinic at [facility]. The patient has very soft, slow speech but is alert and oriented x4. I have spoken with Dr. Desmond Teresa, [facility] neurology who has accepted the patient in transfer for Dr. Verito Gonzales. The patient is hemodynamically stable for transfer. COIVD negative 02/02/20. Last Vital Signs Temp 97.8 F 02/03/20 04:00 Pulse 69 02/03/20 04:00 Resp 20 02/03/20 04:00 BP 127/72 02/03/20 04:00 Pulse Ox 100 02/03/20 04:00 Etiology is not entirely clear, but this seems to have come on rather suddenly after a fall a couple of nights ago. CT of the head and neck did not demonstrate any acute findings, but did show severe cervical spondylosis. Today with mild neck and YAN shoulder discomfort, no midline vertebral tenderness nor does he have shoulder/elbow joint tenderness on palpation. Concerning for myelopathy or even central cord syndrome - appreciate neurology recommendations. Unable to obtain MRI secondary to pacemaker. Notified patient's neurologist's office (Dr Haresh Mattson) from the Movement Disorders Clinic at [facility]. (2) Elevated BUN: Code(s): R79.9 - Abnormal finding of blood chemistry, unspecified Status: Acute Assessment and Plan: Improving. Stool occult blood is negative. (3) Hypokalemia: Code(s): E87.6 - Hypokalemia Status: Acute Assessment and Plan: Potassium as low as 2.9 and replaced. Stable at 3.7 at day of transfer. Magnesium 1.9. (4) Multinodular goiter: Code(s): E04.2 - Nontoxic multinodular goiter Status: Acute Assessment and Plan: Incidental finding on head and neck CTA. Thyroid ultrasound showed multiple thyroid nodules including a 4.8 cm solid nodule in the right thyroid, 2.0 cm solid nodule in the left thyroid; fine needle aspiration is recommended. Discussed these findings with the patient. At this point he is not interested in pursui
--- NOTE | 2020-02-02 12:09 | PM.IMPN ---
Progress Note: A&P Assessment and Plan (1) Upper extremity weakness: Code(s): R29.898 - Other symptoms and signs involving the musculoskeletal system Status: Acute Assessment and Plan: Etiology is not entirely clear, but this seems to have come on rather suddenly after a fall a couple of nights ago. CT of the head and neck did not demonstrate any acute findings, but did show severe cervical spondylosis. Today with mild neck and YAN shoulder discomfort, no midline vertebral tenderness nor does he have shoulder/elbow joint tenderness on palpation. Concerning for myelopathy or even central cord syndrome - appreciate neurology recommendations. Unable to obtain MRI secondary to pacemaker. Called patient's neurologist's office (Dr Haresh Mattson) from the [facility] Disorders [facility] at [facility]. Waiting to hear back. Discussed case with Dr Larson. Contacted [facility] transfer line; awaiting a call back. (2) Elevated BUN: Code(s): R79.9 - Abnormal finding of blood chemistry, unspecified Status: Acute Assessment and Plan: Improving. Stool occult blood is negative making GI bleed less likely. Will monitor BMP. (3) Hypokalemia: Code(s): E87.6 - Hypokalemia Status: Acute Assessment and Plan: K improved to 3.7 today. Will monitor BMP and check magnesium. (4) Multinodular goiter: Code(s): E04.2 - Nontoxic multinodular goiter Status: Acute Assessment and Plan: Incidental finding on head and neck CTA. Thyroid ultrasound showed multiple thyroid nodules including a 4.8 cm solid nodule in the right thyroid, 2.0 cm solid nodule in the left thyroid; fine needle aspiration is recommended. Discussed these findings with the patient. At this point he is not interested in pursuing thyroid nodule biopsy. 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 Will defer this to outpatient workup should he change his mind. TSH is within normal limits. (5) Chronic anemia: Code(s): D64.9 - Anemia, unspecified Status: Chronic Assessment and Plan: H&H low but stable. No evidence of acute bleeding. Monitor CBC. (6) Parkinsons: Code(s): G20 - Parkinson's disease Status: Chronic Assessment and Plan: Continue carbidopa/levodopa and ropinirole. His neurologist is Dr Haresh Mattson at [facility]. (7) Paroxysmal atrial fibrillation: Code(s): I48.0 - Paroxysmal atrial fibrillation Status: Acute Assessment and Plan: Rate controlled. s/p [employer] pacemaker insertion [address] Dillard in [place]. Hold Xarelto this evening in light of waiting to hear back from [facility]. Subjective Date/time seen: 02/02/20 1200 Interval history: Mr. Stanley is an 84yo M with Parkinson's admitted for right arm weakness after a fall. His speech is slow and soft but he is alert and oriented x 4. He describes he is right handed, normally able to feed himself but over the last 3 to 4 days has experienced upper extremity weakness, R worse than left. He notes his R arm weakness has actually made improvement over the last few days. He denies chest pain or shortness of breath. Today he describes neck and YAN shoulder discomfort. Passing gas, has had BM here and urinating okay. Review of Systems Review of Systems: Narrative: Twelve systems were reviewed with pertinent positives and negatives as per HPI. Exam Narrative: Exam Narrative: General: Patient resting supine in bed in no acute distress. HEENT: Normocephalic, EOMI, oral mucosa tacky. Neck: No point tenderness to palpation. Cardiovascular: Rate is normal, rhy
--- NOTE | 2020-02-02 16:01 | WPDNEUROPN ---
Progress Note: A&P Assessment and Plan (1) Upper extremity weakness: Code(s): R29.898 - Other symptoms and signs involving the musculoskeletal system Status: Acute (2) Right arm weakness: Code(s): R29.898 - Other symptoms and signs involving the musculoskeletal system Status: Acute (3) Dehydration: Code(s): E86.0 - Dehydration Status: Acute (4) Frequent falls: Code(s): R29.6 - Repeated falls Status: Acute (5) Gastroesophageal reflux disease: Qualifiers: Esophagitis presence: esophagitis presence not specified Qualified Code(s): K21.9 - Gastro-esophageal reflux disease without esophagitis Code(s): K21.9 - Gastro-esophageal reflux disease without esophagitis Status: Chronic (6) Pacemaker: Code(s): Z95.0 - Presence of cardiac pacemaker Status: Acute (7) History of cardiac radiofrequency ablation (RFA): Code(s): Z98.890 - Other specified postprocedural states Status: Acute (8) Paroxysmal atrial fibrillation: Code(s): I48.0 - Paroxysmal atrial fibrillation Status: Acute (9) Parkinsons: Code(s): G20 - Parkinson's disease Status: Chronic Additional Plan I discussed with the patient who is pretty much mentally alert about my diagnosis of cervical spinal cord injury which is hard to discern just by the CT scan and he is totally MRI incompatible I also discussed with his and also discuss with the hospitalist who has already protocol for his neurologist at [facility] however has not received the call back I suggested to the hospitalist that at thing we should be able to be in touch with the transferring service of [facility] if they accept him and see what they can offer she is going to be in touch with the [facility] transferring service I discussed with the option of the surgery however he is a poor risk for any kind of surgical maneuver on his cervical spine if the transferring service suggest anything different than will pick it up from accordingly all option risk in the benefits 1st were discussed with him and his the patient himself is not quite sure what to do but is seems like he is leaning toward having a consultation from [facility] very has been seen for his advanced Parkinson's disease Review of Systems Review of Systems: All systems reviewed & are unremarkable except as noted in HPI and below Exam Const: General: comfortable and no acute distress HENMT: General nose exam: Normal nares present Eyes: General: appearance normal, both eyes and all related structures Neck: Neck: supple and no JVD Other: range of movements of the neck are fairly decent and without any pain Resp: Effort & Inspection: normal respiratory effort Auscultation: clear to auscultation bilaterally Cardio: Other: irregularly irregular rhythm GI: Auscultation: normal bowel sounds Skin: General skin exam: normal color and no rashes or lesions noted Neuro: Other: patient is awake and alert well oriented has hypophonia dysarthria however able to understand and communicate fairly well he looks better and has much better look and pertinent neurological finding is a right upper extremity flaccid paralysis with absent reflexes and left lower extremity weakness which has improved significantly from yesterday again with depressed reflexes to absent reflexes with relatively intact sensation Extrem: General: normal to inspection Psych: Mental Status: mental status grossly normal Objective Data Vital Signs Vital Signs: Vital Signs - 24 hr 02/01/20 20:00 02/01/20 22:00 02/02/20 00:00 Temperature 36.9 C Pulse Rate 70 70 71 Respiratory Rate 18 Blood Pressure 140/74 Pulse Oximetry 100 02/02/20 04:00 02/02/20 06:00 02/02/20 08:00 Temperature 36.9 C Pulse Rate 70 70 70 Respiratory Rate 20 Blood Pressure 149/74 H Pulse Oximetry 100 02/02/20 12:00 Temperature Pulse Rate 70 Respiratory Rate Blood Pres
[2020-02-02 18:19] LABS: SARS-CoV-2 RNA PCR Negative
[2020-02-02] MEDS: LATANOPROST 0.005% OP SOLN 2.5 ML BTL 1 DROP EACH EYE (22:21)
[2020-02-03] VITALS: PULSE 70
[2020-02-03 04:00] VITALS: BP 127/72; PULSE 69; PULSE 70; RESP 20; TEMP 36.6; O2SAT 100
--- NOTE | 2020-02-03 04:55 | PC.NURSE ---
2350 Patient's Rosita Stanley was contacted and was made aware that patient was going to be going to [facility]. 0105 Report was given to JAYCEE Wells at [facility]. 0110 [facility] ambulance was contacted and the ETA was [phone]. 0445 Patient left [facility].
== END 2020-02-03 04:45 | disposition short-term general hospital (02) | DRG 556 ==
LOC: ANHED 12:22 → ANH3MEDSUR 15:06
PROVIDERS: Emergency Medicine; Internal Medicine; Physician Assistant; Admitting Provider Internal Medicine; Emergency Provider Emergency Medicine; PCP Family Medicine; Visit Provider Family Medicine
DX: R29.898 Other symptoms and signs involving the musculoskeletal system (principal); G20 Parkinson's disease; Z20.828 Contact with and (suspected) exposure to other viral communicable diseases; M47.892 Other spondylosis, cervical region; R79.9 Abnormal finding of blood chemistry, unspecified; E86.0 Dehydration; E87.6 Hypokalemia; E04.2 Nontoxic multinodular goiter; D64.9 Anemia, unspecified; I48.0 Paroxysmal atrial fibrillation; I10 Essential (primary) hypertension; K21.9 Gastro-esophageal reflux disease without esophagitis; H40.9 Unspecified glaucoma; Z96.653 Presence of artificial knee joint, bilateral; R29.6 Repeated falls; Z91.81 History of falling; Z79.01 Long term (current) use of anticoagulants; Z79.899 Other long term (current) drug therapy; Z86.14 Personal history of Methicillin resistant Staphylococcus aureus infection; Z87.891 Personal history of nicotine dependence; Z95.0 Presence of cardiac pacemaker; Z98.890 Other specified postprocedural states
CPT/HCPCS: 36415; 70450; 70496; 70498; 71045; 72125; 76536; 80048; 80053; 81001; 82274; 82948; 83735; 84443; 84484; 85014; 85018; 85025; 85027; 85610; 85730; 87635; 92610; 93005; 96360; 96361; 97110; 97162; 97166; 97530; 99285; A9270; C9803; G0378; J7030; Q9967; U0003